=== PATIENT | male | born 1945 | race Caucasian/White ===

== ENCOUNTER 2017-06-10 05:40 | Inpatient (IN) | payer MEDICARE ==
[2017-06-10] MEDS ORDERED: CEFAZOLIN/Water 2 GM/20 ML SYRINGE ONE (06:21)
[2017-06-10 06:45] LABS: Hemoglobin 14.1 g/dL (14.0-18.0); Mean Corpuscular HGB CONC 33.3 g/dL (32.0-36.0); Mean Corpuscular Volume 99.1 fl (80.0-94.0); Mean Platelet Volume 6.9 fL (7.4-10.4); Platelet Count 368 thou/uL (130-400); RBC Distribution Width 12.1 % (11.5-14.5); Red Blood Cell (RBC) Count 4.28 mill/uL (4.70-6.10); White Blood Cell (WBC) Count 20.8 thou/uL (4.8-10.8)
[2017-06-10] MEDS ORDERED: Bupivacaine/Epinephrine 0.25% 30 ML VIAL ONE (06:47)
[2017-06-10 06:48] LABS: Anion Gap 14 mmol/L (10-20); BUN (Urea Nitrogen) 11 mg/dL (8.4-25.7); Calc. Creatinine Clearance 116 mL/min (70-130); Carbon Dioxide 20 mmol/L (23-31); Chloride 105 mmol/L (98-107); Estimated GFR-MDRD Greater than 90; Glucose 113 mg/dL (83-110); Potassium 4.2 mmol/L (3.5-5.1); Sodium 135 mmol/L (136-145)
[2017-06-10] MEDS ORDERED: Fentanyl 100 MCG/2 ML VIAL ONE (07:01)
[2017-06-10 07:15] LABS: Band 10 % (5-11); Burr Cells SLIGHT = 2-5 cells (100X) (0-1/hpf); Lymphocytes 18 % (21-51); MDiff Complete? YES; Monocytes 7 % (0-10); Neutrophil 65 % (42-75); Spherocytes SLIGHT = 1-5 cells (100X) (None Seen)
[2017-06-10 08:20] LABS: Bilirubin Negative (Negative); Blood, Urine Negative (Negative); Clarity CLEAR (Clear); Glucose, Urine (Dipstick) Negative (Negative); Leukocyte Negative (Negative); Nitrite Negative (Negative); Protein, Urine (Dipstick) Negative (Neg-Trace); Specific Gravity, Urine 1.024 (1.002-1.036); pH, Urine 6.5 (5.0-9.0)
[2017-06-10 08:22] LABS: Bacteria/HPF None Seen HPF (None Seen); Hyaline Casts/LPF 0-3 HYALINE CAST LPF (0-3 Hyaline); Pathc Cast-AUWi Flag 0.29 (0-2.49); Squamous Epithelial 0-3 HPF (0-3); WBC/HPF 0-3 HPF (0-3)
[2017-06-10 08:35] LABS: RBC/HPF 0-3 HPF (0-3)
--- NOTE | 2017-06-10 08:57 | RAD ---
RADIOGRAPH CHEST 1 VIEW: Date: 06-10-17 Time: 8:14 a.m. HISTORY: 72-year-old male for preoperative clearance. COMPARISON: 04-18-13 FINDINGS: There is a new finding of reticulonodular infiltrates throughout the right lower lung zone, encroachi ng upon the right midlung zone. There is another new finding of prominent interstitial markings throu ghout the right upper lobe. There is a small right upper lobe pulmonary nodule which is questionably new since the prior study. There are chronic changes consistent with extensive pulmonary scarring, th roughout the left lower lung zone. Mild blunting of the lateral costophrenic angles bilaterally. The left side is similar to the prior 2013 radiograph. No cardiomegaly. Left upper lobe is relatively yaima ar. IMPRESSION: 1. Prominent right lower lung zone infiltrate, new since the prior study of 04-18-13, suspicious for p neumonia. 2. Small right upper lobe pulmonary nodule. 3. Chronic changes involving the left lower lung zone. 4. Small pleural effusions versus pleural thickening bilaterally. 5. A CT may be useful. TONE POS: RACHANA
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
[2017-06-10] MEDS ORDERED: cefTRIAXone\\ROCEPHIN 1 GM in Sodium Chloride 0.9% 100 ML IVPB SCH (12:49)
[2017-06-10] MEDS ORDERED: Zolpidem Tartrate 5 MG TAB PO PRN (12:49)
[2017-06-10] MEDS: Azithromycin 500 MG in Sodium Chloride 0.9% 250 ML 250 ML IVPB SCH (14:07)
[2017-06-10] MEDS: cefTRIAXone\\ROCEPHIN 1 GM, Syringe 0.4 ML in Sterile Water 9.6 ML SLOW IVP SCH (14:09)
--- NOTE | 2017-06-10 15:47 | CT ---
CT CHEST WITH CONTRAST: HISTORY: Pneumonia. COMPARISON: Chest radiograph same day. FINDINGS: There are asymmetric ground-glass opacities in the right upper lobe with centrilobular emphysema. Th ere is also superimposed traction bronchiectasis of lower lobes with what appears to be some early ho neycombing. There are bands of soft tissue density throughout the right lung as well as some involvement in the l eft lung. There are multiple ill-defined linear opacities with a perilobular pattern. There is posterior medial diaphragmatic defect probably containing fat and some bowel. There are mil dly prominent right paratracheal lymph nodes, although do not have a round shape. The largest peritr acheal lymph node measures 1 cm. Healing right anterior and lateral 4th and 5th rib fractures. Old right lateral 6th rib fracture. O ld right lateral 7th rib fracture and 8th rib fracture. Old right posterior 9th rib fracture. There are left anterior healing 4th rib fracture. There is osseous bridging between left anterior 5th and 6th rib fractures. Also, there are left-sided healing rib fractures. No thoracic spine compression fracture. Small right pericardial effusion. Upper abdomen is unremarkable. IMPRESSION: 1. Extensive airspace opacities throughout the lungs involving the right lung some of which are band -like. Differential includes chronic eosinophilic pneumonia as well as cryptogenic organizing pneumo edward superimposed on what appears to be a possible UIP pattern with 3 of the 4 required imaging featur es with subpleural basal predominant reticular abnormality with traction bronchiectasis without defin ite honeycombing, although this could be early microcystic honeycombing. Multifocal pneumonia is als o a possibility, although at this point it is felt somewhat less likely. Bronchoscopic evaluation wo uld be helpful. 2. Mildly prominent mediastinal lymph nodes. 3. Numerous bilateral rib fractures in different phases of healing. POS: [facility]
[2017-06-10] MEDS ORDERED: Iopamidol 370 76% 100 ML VIAL ONE (16:27)
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
[2017-06-10] MEDS: Benzonatate 100 MG CAP PO PRN (21:56)
[2017-06-11] MEDS: Benzonatate 100 MG CAP PO PRN ×3 (06:39→13:49)
--- NOTE | 2017-06-11 08:25 | PDOC.PN ---
- Subjective Encounter Start Date: 06/11/17 Encounter Start Time: 08:23 Subjective: cough, MCCLELLAN - Objective Resuscitation Status: Resuscitation Status FULL:Full Resuscitation MAR Reviewed: Yes Vital Signs & Weight: Vital Signs (12 hours) Temp Pulse Resp BP Pulse Ox 06/11/17 03:09 99.8 F H 75 20 118/58 L 92 L Weight Weight 176 lb I&O: 06/10/17 06/11/17 06/12/17 06:59 06:59 06:59 Intake Total 1200 Output Total 700 Balance 500 Result Diagrams: 06/10/17 06:22 06/10/17 06:22 Radiology Reviewed by me: Yes (CT chest- air space abnormalities) Phys Exam - Physical Examination Neck: no JVD rales R post chest and LLL field Cardiovascular: RRR, no significant murmur Gastrointestinal: soft, non-tender, positive bowel sounds Musculoskeletal: no edema Dx/Plan (1) PNA (pneumonia) Code(s): J18.9 - PNEUMONIA, UNSPECIFIED ORGANISM Status: Acute Qualifiers: Pneumonia type: due to unspecified organism Laterality: bilateral (2) Atrial fibrillation Code(s): I48.91 - UNSPECIFIED ATRIAL FIBRILLATION Status: Chronic Qualifiers: Atrial fibrillation type: paroxysmal Qualified Code(s): I48.0 - Paroxysmal atrial fibrillation (3) Acute respiratory failure with hypoxemia Code(s): J96.01 - ACUTE RESPIRATORY FAILURE WITH HYPOXIA Status: Acute - Plan cont O2, antibx -: discuss with cardiology -: consult pulmonology -: hold amiodarone * .
--- NOTE | 2017-06-11 08:28 | EKG ---
Test Reason : PREOP Blood Pressure : / mmHG Vent. Rate : 077 BPM Atrial Rate : 077 BPM P-R Int : 182 ms QRS Dur : 172 ms QT Int : 506 ms P-R-T Axes : 067 152 006 degrees QTc Int : 572 ms Normal sinus rhythm Right bundle branch block Left posterior fascicular block Bifascicular block Cannot rule out Inferior infarct (cited on or before 18-APR-2013) Abnormal ECG When compared with ECG of 29-APR-2015 11:14, No significant change was found Confirmed by LANIE ROBBINS ([id number]) on 06/11/2017 8:28:01 AM Referred By: LIANA Confirmed By:LANIE ROBBINS
[2017-06-11] MEDS: Amlodipine 10 MG TAB PO SCH (09:34)
[2017-06-11] MEDS: Atorvastatin Calcium 40 MG TAB PO SCH (09:34)
[2017-06-11] MEDS: Aspirin 81 mg Enteric Coated Tablet PO SCH (09:35)
[2017-06-11] MEDS: Lisinopril 10 MG TAB PO SCH (09:35)
[2017-06-11] MEDS: Enoxaparin Sodium 40 MG/0.4 ML SYRINGE SC SCH (09:36)
[2017-06-11] MEDS: Sodium Chloride 0.9% 10 ML ONE ×2 (09:36→18:53)
[2017-06-11] MEDS ORDERED: Sodium Chloride 0.9% 10 ML ONE (12:41)
[2017-06-11] MEDS: Azithromycin 500 MG in Sodium Chloride 0.9% 250 ML 250 ML IVPB SCH (12:49)
[2017-06-11] MEDS: cefTRIAXone\\ROCEPHIN 1 GM, Syringe 0.4 ML in Sterile Water 9.6 ML SLOW IVP SCH (12:52)
--- NOTE | 2017-06-11 16:11 | PDOC.CTH ---
Cardiology Progress Note - Subjective No new issues. He states he feels slightly better than yesterday. - Objective Vital Signs Temp Pulse Resp BP BP BP Pulse Ox 06/11/17 12:00 98.2 F 85 16 133/60 92 L 06/11/17 09:35 139/68 06/11/17 09:34 82 139/68 06/11/17 08:00 99.3 F 82 16 139/68 92 L Admit Weight 190 lb Weight 176 lb 06/10/17 06/11/17 06/12/17 06:59 06:59 06:59 Intake Total 1200 Output Total 700 Balance 500 - Physical Examination General/Neuro: alert & oriented x3, NAD Neck: no JVD present Lungs: other: (Crackles) Heart: RRR Abdomen: NT/ND Extremities: + edema B (1+) - Telemetry Telemetry Rhythm: NSR - Labs Result Diagrams: 06/10/17 06:22 06/10/17 06:22 - Assessment/Plan 1. Lung infiltrates, possibly amio lung versus atypical pneumonia, awaiting pulmonary recs. 2. Acute hypoxic respiratory insufficiency. Improving. 3. Paroxysmal afib, currently in sinus. PLAN: - Continue to hold amiodarone indefinitely. - IV diuresis. - IV abx per primary team.
[2017-06-11] MEDS: Benzonatate 100 MG CAP PO SCH (20:57)
[2017-06-11] MEDS: Temazepam 15 MG CAP PO PRN (20:57)
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
[2017-06-12] MEDS: Benzonatate 100 MG CAP PO SCH ×3 (08:06→20:32)
[2017-06-12] MEDS: Atorvastatin Calcium 40 MG TAB PO SCH (08:06)
[2017-06-12] MEDS: Aspirin 81 mg Enteric Coated Tablet PO SCH (08:07)
[2017-06-12] MEDS: Amlodipine 10 MG TAB PO SCH (08:07)
[2017-06-12] MEDS: Enoxaparin Sodium 40 MG/0.4 ML SYRINGE SC SCH (08:07)
[2017-06-12] MEDS: Lisinopril 10 MG TAB PO SCH (08:07)
--- NOTE | 2017-06-12 10:42 | PDOC.PN ---
- Subjective Encounter Start Date: 06/12/17 Encounter Start Time: 10:40 Patient seen and examined, no new issues or complaints, all questions answered. - Objective Resuscitation Status: Resuscitation Status FULL:Full Resuscitation Vital Signs & Weight: Vital Signs (12 hours) Temp Pulse Resp BP Pulse Ox 06/12/17 08:00 97.5 F L 81 18 06/12/17 07:39 97.5 F L 81 18 127/58 L 92 L 06/12/17 06:48 78 20 06/12/17 04:00 97.6 F 70 18 114/58 L 93 L 06/12/17 02:42 65 16 97 06/11/17 23:13 97.8 F 79 20 127/63 89 L 06/11/17 23:10 82 22 H 89 L Weight Admit Weight 190 lb Weight 174 lb I&O: 06/11/17 06/12/17 06/13/17 06:59 06:59 06:59 Intake Total 1200 1130 Output Total 700 550 Balance 500 580 Result Diagrams: 06/10/17 06:22 06/10/17 06:22 Phys Exam - Physical Examination Constitutional: NAD HEENT: PERRLA, moist MMs, sclera anicteric Neck: no nodes, no JVD, supple right sided inspiratory coarse breath sounds no respiratory distress Cardiovascular: RRR, no significant murmur, no rub Gastrointestinal: soft, non-tender, no distention Musculoskeletal: no edema, pulses present Dx/Plan (1) Acute respiratory failure with hypoxemia Code(s): J96.01 - ACUTE RESPIRATORY FAILURE WITH HYPOXIA Status: Acute (2) PNA (pneumonia) Code(s): J18.9 - PNEUMONIA, UNSPECIFIED ORGANISM Status: Acute Qualifiers: Pneumonia type: due to unspecified organism Laterality: bilateral (3) Atrial fibrillation Code(s): I48.91 - UNSPECIFIED ATRIAL FIBRILLATION Status: Chronic Qualifiers: Atrial fibrillation type: paroxysmal Qualified Code(s): I48.0 - Paroxysmal atrial fibrillation (4) Lumbar stenosis Code(s): M48.06 - SPINAL STENOSIS, LUMBAR REGION * DO NOT USE * Status: Acute (5) S/P laminectomy Code(s): Z98.89 - OTHER SPECIFIED POSTPROCEDURAL STATES * DO NOT USE * Status : Acute - Plan * Continue current plan * labs and CXR in AM * amiodarone on hold for now * pulmonary and cardiology following * cont abx * plan d/w patient, he understands and agrees with this plan
[2017-06-12] MEDS: Azithromycin 500 MG in Sodium Chloride 0.9% 250 ML 250 ML IVPB SCH (13:30)
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
[2017-06-12] MEDS: cefTRIAXone\\ROCEPHIN 1 GM, Syringe 0.4 ML in Sterile Water 9.6 ML SLOW IVP SCH (14:44)
[2017-06-12] MEDS: Guaifenesin DM 100-10/5 ML UDCUP PO PRN ×2 (15:50→20:52)
--- NOTE | 2017-06-12 16:09 | PDOC.CTH ---
Cardiology Progress Note - Subjective Mild improvement in symptoms today. - Objective Vital Signs Temp Pulse Resp BP BP Pulse Ox 06/12/17 15:46 97.7 F 80 17 112/58 L 95 06/12/17 15:43 76 16 06/12/17 11:32 97.5 F L 84 18 111/54 L 93 L 06/12/17 11:16 81 20 06/12/17 08:00 97.5 F L 81 18 06/12/17 07:39 97.5 F L 81 18 127/58 L 92 L 06/12/17 06:48 78 20 Admit Weight 190 lb Weight 174 lb 06/11/17 06/12/17 06/13/17 06:59 06:59 06:59 Intake Total 1200 1130 Output Total 700 550 Balance 500 580 - Physical Examination General/Neuro: alert & oriented x3, NAD Neck: no JVD present Lungs: unlabored respirations, other: (crackles bilat. ) Heart: RRR Abdomen: NT/ND Extremities: + edema B (trace) - Telemetry Telemetry Rhythm: NSR - Labs Result Diagrams: 06/10/17 06:22 06/10/17 06:22 - Assessment/Plan 1. Possibly amio lung versus atypical pneumonia. 2. Acute hypoxic respiratory insufficiency. 3. Paroxysmal afib, currently in sinus. 4. Ischemic CM. 5. PLAN: - Continue to hold amiodarone indefinitely and started on steroids treating possible amiodarone lung. - IV abx per primary team. - Dr. Franco will follow in the morning.
[2017-06-12] MEDS: Temazepam 15 MG CAP PO PRN (20:33)
[2017-06-13] MEDS: Acetaminophen 325 MG TAB PO PRN ×2 (03:33→20:01)
[2017-06-13 05:48] LABS: Anion Gap 16 mmol/L (10-20); BUN (Urea Nitrogen) 18 mg/dL (8.4-25.7); Calc. Creatinine Clearance 115 mL/min (70-130); Calcium 8.7 mg/dL (7.8-10.44); Carbon Dioxide 18 mmol/L (23-31); Chloride 104 mmol/L (98-107); Estimated GFR-MDRD Greater than 90; Glucose 132 mg/dL (83-110); Potassium 3.5 mmol/L (3.5-5.1); Sodium 134 mmol/L (136-145)
[2017-06-13] MEDS: Guaifenesin DM 100-10/5 ML UDCUP PO PRN ×3 (05:57→20:00)
[2017-06-13 06:12] LABS: Band 12 % (5-11); Hemoglobin 12.9 g/dL (14.0-18.0); Lymphocytes 1 % (21-51); MDiff Complete? YES; Mean Corpuscular HGB CONC 31.4 g/dL (32.0-36.0); Mean Corpuscular Hemoglobin 32.2 pg (27.0-31.0); Mean Platelet Volume 7.8 fL (7.4-10.4); Monocytes 3 % (0-10); Neutrophil 84 % (42-75); Platelet Count 345 thou/uL (130-400); Red Blood Cell (RBC) Count 4.02 mill/uL (4.70-6.10); White Blood Cell (WBC) Count 25.2 thou/uL (4.8-10.8)
[2017-06-13] MEDS ORDERED: Loratadine 10 MG TAB PO PRN (07:22)
[2017-06-13] MEDS ORDERED: Mag-Al 1200 mg/1200 mg/30 ML UDCUP PO PRN (07:22)
[2017-06-13] MEDS ORDERED: Chloraseptic Spray 180 ml Bottle PO PRN (07:22)
[2017-06-13] MEDS ORDERED: Artificial Tears 18 DROP/0.9 ML EA EYE PRN (07:22)
[2017-06-13] MEDS ORDERED: Senokot 8.6 MG TAB PO PRN (07:22)
[2017-06-13] MEDS ORDERED: Sodium Chloride 0.65% Nasal 44 ML BOT EA NARE PRN (07:22)
[2017-06-13] MEDS ORDERED: Eucerin (Mineral Oil/Petrolatum,White) 30 gm Jar TOP PRN (07:22)
[2017-06-13] MEDS ORDERED: Ondansetron HCl/PF 4 MG/2 ML Vial IVP PRN (07:22)
[2017-06-13] MEDS ORDERED: hydrALAZINE 20 MG/ML VIAL SLOW IVP PRN (07:22)
[2017-06-13 08:01] LABS: ALT (SGPT) 17 U/L (8-55); AST (SGOT) 32 U/L (5-34); Albumin 2.9 g/dL (3.4-4.8); Alkaline Phosphatase 96 U/L (40-150); Bilirubin, Direct 0.2 mg/dL (0.1-0.3); Bilirubin, Total 0.5 mg/dL (0.2-1.2); Protein, Total 6.1 g/dL (5.8-8.1)
[2017-06-13] MEDS: Benzonatate 100 MG CAP PO SCH ×3 (08:06→20:00)
[2017-06-13] MEDS: Lisinopril 10 MG TAB PO SCH (08:07)
[2017-06-13] MEDS: Amlodipine 10 MG TAB PO SCH (08:07)
[2017-06-13] MEDS: Aspirin 81 mg Enteric Coated Tablet PO SCH (08:07)
[2017-06-13] MEDS: Atorvastatin Calcium 40 MG TAB PO SCH (08:07)
[2017-06-13] MEDS: Famotidine 20 MG TAB PO SCH ×2 (08:07→21:17)
[2017-06-13] MEDS: Enoxaparin Sodium 40 MG/0.4 ML SYRINGE SC SCH (08:08)
[2017-06-13] MEDS: Milk Of Magnesia 30 ML UDCUP PO PRN (08:12)
--- NOTE | 2017-06-13 08:56 | PDOC.PN ---
- Subjective Encounter Start Date: 06/13/17 Encounter Start Time: 07:45 -: old records requested/rev Patient seen and examined. today pt was hypoxic, so non rebreather started, no fever, No overnight events - Objective Resuscitation Status: Resuscitation Status FULL:Full Resuscitation MAR Reviewed: Yes Vital Signs & Weight: Vital Signs (12 hours) Temp Pulse Resp BP Pulse Ox 06/13/17 08:07 82 06/13/17 07:01 85 L 06/13/17 06:53 82 16 85 L 06/13/17 04:00 97.3 F L 75 24 H 106/58 L 06/12/17 22:29 77 14 92 L Weight Admit Weight 190 lb Weight 172 lb I&O: 06/12/17 06/13/17 06/14/17 06:59 06:59 06:59 Intake Total 1130 1500 Output Total 550 425 Balance 580 1075 Result Diagrams: 06/13/17 04:09 06/13/17 04:09 Radiology Reviewed by me: Yes (chest xray) EKG Reviewed by me: Yes (NSR) Phys Exam - Physical Examination Constitutional: NAD HEENT: PERRLA, moist MMs, sclera anicteric Neck: no JVD, supple bilateral coarse breath sound Cardiovascular: RRR, no significant murmur, no rub Gastrointestinal: soft, non-tender, no distention, positive bowel sounds Musculoskeletal: no edema, pulses present Neurological: non-focal, normal sensation, moves all 4 limbs Lymphatic: no nodes Psychiatric: normal affect, A&O x 3 Skin: no rash, normal turgor Dx/Plan (1) Acute respiratory failure with hypoxemia Code(s): J96.01 - ACUTE RESPIRATORY FAILURE WITH HYPOXIA Status: Acute (2) Atypical pneumonia Code(s): J18.9 - PNEUMONIA, UNSPECIFIED ORGANISM Status: Acute (3) CAD (coronary artery disease) Code(s): I25.10 - ATHSCL HEART DISEASE OF [place] CORONARY ARTERY W/O ANG PCTRS Status: Chronic (4) Dyslipidemia Code(s): E78.5 - HYPERLIPIDEMIA, UNSPECIFIED Status: Chronic (5) Hypertension Code(s): I10 - ESSENTIAL (PRIMARY) HYPERTENSION Status: Chronic (6) Ischemic cardiomyopathy Code(s): I25.5 - ISCHEMIC CARDIOMYOPATHY Status: Chronic (7) Macrocytic anemia Code(s): D53.9 - NUTRITIONAL ANEMIA, UNSPECIFIED Status: Chronic (8) Paroxysmal atrial fibrillation Code(s): I48.0 - PAROXYSMAL ATRIAL FIBRILLATION Status: Chronic (9) Amiodarone pulmonary toxicity Code(s): J98.4 - OTHER DISORDERS OF LUNG; T46.2X5A - ADVERSE EFFECT OF OTHER ANTIDYSRHYTHMIC DRUGS, INIT ENCNTR Status: Suspected - Plan cont current plan of care, continue antibiotics, respiratory therapy * continue empiric rocephin and azithromycin * LFT and BNP checked * will get Echo today * if oxygen saturation remains low despite non rebreather, then will consider transfer to [facility] and he may need BIPAP * medication reviewed as below * symptomatic treatment. Review of Systems - Review of Systems Constitutional: negative: fever, chills, sweats, weakness, malaise, other Eyes: negative: Pain, Vision Change, Conjunctivae Inflammation, Eyelid Inflammation, Redness, Other ENT: negative: Ear Pain, Ear Discharge, Nose Pain, Nose Discharge, Nose Congestion, Mouth Pain, Mouth Swelling, Throat Pain, Throat Swelling, Other Respiratory: Shortness of Breath, SOB with Excertion. negative: Cough, Dry, Hemoptysis, Pleuritic Pain, Sputum, Wheezing Cardiovascular: negative: chest pain, palpitations, orthopnea, paroxysmal nocturnal dyspnea, edema, light headedness, other Gastrointestinal: negative: Nausea, Vomiting, Abdominal Pain, Diarrhea, Constipation, Melena, Hematochezia, Other Genitourinary: negative: Dysuria, Frequency, Incontinence, Hematuria, Retention , Other Musculoskeletal: negative: Neck Pain, Shoulder Pain, Arm Pain, Back Pain, Hand Pain, Leg Pain, Foot Pain, Other Skin: negative: Rash, Lesions, [place], Bruising, Other Neurological: negative: Weakness, Numbness, Incoordination, Change in Speech, Confusion, Seizures, Other - Medications/Allergies Allergies/Adverse Reactions: Allergies Allergy/AdvReac Type Severity Reaction Status Date / Time No Known Allergies Allergy Verified 06/10/17 12:55 Medications: Current Medications Acetaminophen (Tylenol) 650 mg PO Q4H PRN PRN Reason: Headache/Fever or Pain Last Admin: 06/13/17 03:33 Dose: 650 mg Al Hydroxide/Mg Hydroxide (Maalox) 15 ml PO Q4H PRN PRN Reason: Heartburn or Indigestion Albuterol/Ipratropium (Duoneb) 3 ml NEB [id number] [facility] Last Admin: 06/13/17 06:53 Dose: 3 ml Amlodipine Besylate (Norvasc) [facility] [place] Last Admin: 06/13/17 08:07 Dose: 10 mg Artificial Tears (Tears Naturale) 0 drop EA EYE PRN PRN PRN Reason: Dry Eyes Aspirin (Ecotrin) 81 mg PO [facility] [place] Last Admin: 06/13/17 08:07 Dose: 81 mg Atorvastatin Calcium (Lipitor) 40 mg PO [facility] [place] Last Admin: 06/13/17 08:07 Dose: 40 mg Benzonatate (Tessalon) 200 mg PO TID [facility] Last Admin: 06/13/17 08:06 Dose: 200 mg Enoxaparin Sodium (Lovenox) 40 mg SC 0900 [facility] Last Admin: 06/13/17 08:08 Dose: 40 mg Famotidine (Pepcid) 20 mg PO BID [facility] Last Admin: 06/13/17 08:07 Dose: 20 mg Guaifenesin/Dextromethorphan (Robitussin Dm) 15 ml PO Q6H PRN PRN Reason: Cough Last Admin: 06/13/17 05:57 Dose: 15 ml Hydralazine HCl (Apresoline) 10 mg SLOW IVP Q4H PRN PRN Reason: Systolic BP > 180 Azithromycin 500 mg/ Sodium (Chloride) 250 mls @ 250 mls/hr IVPB Q24HR [facility] Last Admin: 06/12/17 13:30 Dose: 250 mls Ceftriaxone Sodium 1 gm/ (Syringe 0.4 ml/ Sterile Water) 10 mls @ 120 mls/hr SLOW IVP 1300 [facility] Last Admin: 06/12/17 14:44 Dose: 10 mls Lisinopril (Zestril) 10 mg [facility] [place] Last Admin: 06/13/17 08:07 Dose: 10 mg Loratadine (Claritin) 10 mg PO DAILYPRN PRN PRN Reason: Sinus Symptoms Magnesium Hydroxide (Milk Of Magnesium) 30 ml PO DAILYPRN PRN PRN Reason: Constipation Last Admin: 06/13/17 08:12 Dose: 30 ml Methylprednisolone Sodium Succinate (Solu-Medrol) 40 mg IVP Q6HR [facility] Last Admin: 06/13/17 05:57 Dose: 40 mg Mineral Oil/White Petrolatum (Eucerin Cream) 0 gm TOP BIDPRN PRN PRN Reason: Dry Skin Ondansetron HCl (Zofran) 4 mg IVP Q6H PRN PRN Reason: Nausea/Vomiting Phenol (Chloraseptic [place] 180 Ml Bot) 0 ml PO PRN PRN PRN Reason: Sore Throat Senna (Senokot) 2 tab PO HSPRN PRN PRN Reason: Constipation Sodium Chloride ([place] Nasal [place] 0.65%) 0 ml EA NARE QIDPRN PRN PRN Reason: Nasal Congestion Temazepam (Restoril) 30 mg PO HSPRN PRN PRN Reason: Insomnia Last Admin: 06/12/17 20:33 Dose: 30 mg
--- NOTE | 2017-06-13 09:26 | RAD ---
PORTABLE CHEST: HISTORY: Cough. COMPARISON: 06/10/17 study. FINDINGS: Heart size appears slightly enlarged. The parenchymal lung markings appear slightly worsened as comp ared to the previous examination. There is relative sparing of the left upper lobe changes. IMPRESSION: Parenchymal lung changes which are not improved and may be slightly worsened as compared to the previ ous study. POS: KINA
[2017-06-13] MEDS ORDERED: Furosemide 100 MG/10 ML VIAL SLOW IVP SCH (12:15)
--- NOTE | 2017-06-13 12:24 | PRG ---
DATE OF SERVICE: 06/13/2017 SUBJECTIVE: He says he feels better, but he is a little more hypoxemic today. He had a face mask on earlier, because his sats were in the high 80s when he woke up. OBJECTIVE: VITAL SIGNS: He is afebrile, heart rate is 80, respiratory rate is 20, oximetry is 89% on 50% mask. Blood pressure 124/60. GENERAL: He is in no distress. LUNGS: He is not using accessory muscles. He had crackles at both lung bases. HEART: Regular rhythm. S1 and S2 are normal. ABDOMEN: Soft and nontender. EXTREMITIES: Without clubbing, cyanosis, or edema. IMAGING: Chest radiograph shows an increase in interstitial markings, perhaps a little worse. Intake and output is positive 1075. IMPRESSION: 1. ?amiodarone hypersensitivity. 2. Possible atypical pneumonia. 3. History of atrial fibrillation in sinus rhythm. 4. History of an ischemic cardiomyopathy. Given his positive fluid balance for several days, he will receive Lasix. Hopefully, we will see an improvement in his gas exchange.
--- NOTE | 2017-06-13 18:47 | PDOC.CTH ---
Cardiology Progress Note - Subjective The pt seen and examined. No overnight events. No cardiac complaints. He continues to cough. - Objective Vital Signs Temp Pulse Resp BP Pulse Ox 06/13/17 16:03 97.8 F 81 16 121/58 L 93 L 06/13/17 14:33 77 20 92 L 06/13/17 13:27 94 L 06/13/17 11:36 97.5 F L 82 16 104/53 L 79 L 06/13/17 11:09 93 16 89 L 06/13/17 08:45 97.8 F 80 20 06/13/17 08:25 97.8 F 80 20 124/60 93 L 06/13/17 08:07 82 06/13/17 07:01 85 L 06/13/17 06:53 82 16 85 L Admit Weight 190 lb Weight 172 lb 06/12/17 06/13/17 06/14/17 06:59 06:59 06:59 Intake Total 1130 1500 800 Output Total 550 425 900 Balance 580 1075 -100 - Physical Examination General/Neuro: alert & oriented x3 Neck: no JVD present Lungs: other: (coases and diminished at bases) Heart: RRR Abdomen: soft Extremities: other: (No edema) - Telemetry Telemetry Rhythm: SR, 1st avb, RBBB 70-80s - Labs Result Diagrams: 06/13/17 04:09 06/13/17 04:09 - Assessment/Plan 1. Acute hypoxic respiratory insufficiency possible due to Amiodarone lung vs atypical pneumonia - Cont. holding Amiodarone. IV antibiotics by PCP. 2. Paroxysmal afib - Remains in SR; 3. CAD - stable; cont. to monitor on tele; on HECTOR, ASA, Lovenox, Statin; no on BBlocker due to SOB 4. HTN - stable with current meds 5. Hyperlipidemia - MAR reviewed Review of Systems - Review of Systems Constitutional: reports: weakness EENTM: reports: no symptoms reported Respiratory: reports: see HPI Cardiac (ROS): reports: no symptoms reported ABD/GI: reports: no symptoms reported : reports: no symptoms reported
[2017-06-13] MEDS: Temazepam 15 MG CAP PO PRN (20:02)
--- NOTE | 2017-06-14 09:06 | PDOC.CTH ---
<Yun Mckinnon - Last Filed: 06/14/17 09:03> Cardiology Progress Note - Subjective The pt seen and examined. No overnight events. No cardiac complaints. He still complains of [place] with minimal movement and chronic cough. - Objective Vital Signs Temp Pulse Resp BP Pulse Ox 06/14/17 08:04 97.4 F L 85 20 114/56 L 90 L 06/14/17 07:24 88 L 06/14/17 07:19 81 20 88 L 06/14/17 04:00 98.1 F 75 20 104/57 L 06/13/17 22:45 80 20 91 L Admit Weight 190 lb Weight 175 lb 06/13/17 06/14/17 06/15/17 06:59 06:59 06:59 Intake Total 1500 800 Output Total 425 900 Balance 1075 -100 - Physical Examination General/Neuro: alert & oriented x3 Neck: no JVD present Lungs: other: (coases, but better than yesterday) Heart: RRR Abdomen: soft Extremities: other: (no edema) - Telemetry Telemetry Rhythm: SR with RBBB 70-80s - Labs Result Diagrams: 06/13/17 04:09 06/13/17 04:09 - Assessment/Plan 1. Acute hypoxic respiratory insufficiency possible due to Amiodarone lung vs atypical pneumonia - Cont. holding Amiodarone. IV antibiotics by PCP. 2. Paroxysmal afib - Remains in SR since 06/10/17 according to tele record; on ASA and Lovenox qd 3. CAD - stable; cont. to monitor on tele; on HECTOR, ASA, Lovenox, Statin; no on BBlocker due to SOB 4. HTN - stable with current meds 5. Hyperlipidemia - on Statin MAR reviewed Review of Systems - Review of Systems Constitutional: reports: no symptoms reported, weakness EENTM: reports: see HPI Respiratory: reports: see HPI Cardiac (ROS): reports: no symptoms reported ABD/GI: reports: no symptoms reported : reports: no symptoms reported <Annamaria Franco - Last Filed: 06/14/17 18:26> Cardiology Progress Note - Objective Vital Signs Temp Pulse Resp BP BP Pulse Ox 06/14/17 18:22 82 20 91 L 06/14/17 17:27 97.8 F 83 20 117/65 90 L 06/14/17 15:00 97.6 F 86 20 92 L 06/14/17 14:14 97.6 F 86 20 119/66 92 L 06/14/17 13:57 82 22 H 91 L 06/14/17 11:40 97.4 F L 82 18 123/57 L 93 L 06/14/17 11:08 81 20 06/14/17 08:06 97.4 F L 85 20 90 L 06/14/17 08:04 97.4 F L 85 20 114/56 L 90 L 06/14/17 07:24 88 L 06/14/17 07:19 81 20 88 L Admit Weight 190 lb Weight 175 lb 06/13/17 06/14/17 06/15/17 06:59 06:59 06:59 Intake Total 1500 800 260 Output Total 425 900 100 Balance 1075 -100 160 - Labs Result Diagrams: 06/13/17 04:09 06/13/17 04:09 - Assessment/Plan Pt. seen and eval. by me. I agree with the A/P by the TRACER BULLET SECTION SUPERVISOR. Bilat. marylu chaudhary. RRR. Will discuss with EP about the best options for antiarrhythmic medications.
[2017-06-14] MEDS: Aspirin 81 mg Enteric Coated Tablet PO SCH (09:12)
[2017-06-14] MEDS: Benzonatate 100 MG CAP PO SCH ×3 (09:12→20:09)
[2017-06-14] MEDS: Atorvastatin Calcium 40 MG TAB PO SCH (09:12)
[2017-06-14] MEDS: Amlodipine 10 MG TAB PO SCH (09:12)
[2017-06-14] MEDS: Milk Of Magnesia 30 ML UDCUP PO PRN (09:13)
[2017-06-14] MEDS: Enoxaparin Sodium 40 MG/0.4 ML SYRINGE SC SCH (09:13)
[2017-06-14] MEDS: Lisinopril 10 MG TAB PO SCH (09:13)
[2017-06-14] MEDS: Guaifenesin DM 100-10/5 ML UDCUP PO PRN (09:13)
[2017-06-14] MEDS: Famotidine 20 MG TAB PO SCH ×2 (10:06→20:09)
--- NOTE | 2017-06-14 14:43 | PDOC.PN ---
- Subjective Encounter Start Date: 06/14/17 Encounter Start Time: 14:49 Subjective: No new complaints -: De-escalated from non-rebreather to NC O2 overnight. - Objective Resuscitation Status: Resuscitation Status FULL:Full Resuscitation MAR Reviewed: Yes Vital Signs & Weight: Vital Signs (12 hours) Temp Pulse Resp BP BP Pulse Ox 06/14/17 14:14 97.6 F 86 20 119/66 92 L 06/14/17 13:57 82 22 H 91 L 06/14/17 11:40 97.4 F L 82 18 123/57 L 93 L 06/14/17 11:08 81 20 06/14/17 08:06 97.4 F L 85 20 90 L 06/14/17 08:04 97.4 F L 85 20 114/56 L 90 L 06/14/17 07:24 88 L 06/14/17 07:19 81 20 88 L 06/14/17 04:00 98.1 F 75 20 104/57 L Weight Admit Weight 190 lb Weight 175 lb I&O: 06/13/17 06/14/17 06/15/17 06:59 06:59 06:59 Intake Total 1500 800 Output Total 425 900 Balance 1075 -100 Result Diagrams: 06/13/17 04:09 06/13/17 04:09 Additional Labs: Accuchecks 06/14/17 10:40 POC Glucose 127 H Phys Exam - Physical Examination Constitutional: NAD HEENT: PERRLA, moist MMs, sclera anicteric Neck: no JVD, supple, full ROM Respiratory: no wheezing, no rales, no rhonchi, clear to auscultation bilateral reduced breath sounds bilaterally Cardiovascular: RRR (s1 s2 only), no significant murmur, no rub Gastrointestinal: soft, non-tender, no distention, positive bowel sounds Musculoskeletal: no edema, pulses present Neurological: non-focal, moves all 4 limbs Psychiatric: normal affect, A&O x 3 Skin: no rash, normal turgor Dx/Plan (1) Acute respiratory failure with hypoxemia Code(s): J96.01 - ACUTE RESPIRATORY FAILURE WITH HYPOXIA Status: Acute (2) Amiodarone pulmonary toxicity Code(s): J98.4 - OTHER DISORDERS OF LUNG; T46.2X5A - ADVERSE EFFECT OF OTHER ANTIDYSRHYTHMIC DRUGS, INIT ENCNTR Status: Suspected (3) Atypical pneumonia Code(s): J18.9 - PNEUMONIA, UNSPECIFIED ORGANISM Status: Acute Comment: Continue Levofloxacin. (4) CAD (coronary artery disease) Code(s): I25.10 - ATHSCL HEART DISEASE OF [place] CORONARY ARTERY W/O ANG PCTRS Status: Chronic Qualifiers: Coronary Disease-Associated Artery/Lesion type: unspecified vessel or lesion type [place] vs. transplanted heart: [place] heart Associated angina: without angina Qualified Code(s): I25.10 - Atherosclerotic heart disease of [place] coronary artery without angina pectoris Comment: Stable, chest pain free. (5) Dyslipidemia Code(s): E78.5 - HYPERLIPIDEMIA, UNSPECIFIED Status: Chronic (6) Hypertension Code(s): I10 - ESSENTIAL (PRIMARY) HYPERTENSION Status: Chronic (7) Ischemic cardiomyopathy Code(s): I25.5 - ISCHEMIC CARDIOMYOPATHY Status: Chronic (8) Macrocytic anemia Code(s): D53.9 - NUTRITIONAL ANEMIA, UNSPECIFIED Status: Chronic (9) Paroxysmal atrial fibrillation Code(s): I48.0 - PAROXYSMAL ATRIAL FIBRILLATION Status: Chronic - Plan cont current plan of care, continue antibiotics, respiratory therapy, out of bed /ambulate, DVT proph w/lovenox Continue O2 supplementation. -: Continue Levofloxacin -: f/u cardiology and pulmonary recs. * . Review of Systems - Medications/Allergies Allergies/Adverse Reactions: Allergies Allergy/AdvReac Type Severity Reaction Status Date / Time No Known Allergies Allergy Verified 06/10/17 12:55 Medications: Current Medications Acetaminophen (Tylenol) 650 mg PO Q4H PRN PRN Reason: Headache/Fever or Pain Last Admin: 06/13/17 20:01 Dose: 650 mg Al Hydroxide/Mg Hydroxide (Maalox) 15 ml PO Q4H PRN PRN Reason: Heartburn or Indigestion Albuterol/Ipratropium (Duoneb) 3 ml EZPAP [id number] [facility] Last Admin: 06/14/17 13:57 Dose: 3 ml Amlodipine [facility] ([facility]) [facility] Last Admin: 06/14/17 09:12 Dose: 10 mg Artificial Tears (Tears Naturale) 0 drop EA EYE PRN PRN PRN Reason: Dry Eyes Aspirin (Ecotrin) [facility] Last Admin: 06/14/17 09:12 Dose: 81 mg Atorvastatin Calcium (Lipitor) 40 mg PO QAM [facility] Last Admin: 06/14/17 09:12 Dose: 40 mg Benzonatate (Tessalon) 200 mg PO TID [facility] Last Admin: 06/14/17 09:12 Dose: 200 mg Enoxaparin Sodium (Lovenox) 40 mg SC 0900 [facility] Last Admin: 06/14/17 09:13 Dose: 40 mg Famotidine (Pepcid) 20 mg PO BID [facility] Last Admin: 06/14/17 10:06 Dose: 20 mg Guaifenesin/Dextromethorphan (Robitussin Dm) 15 ml PO Q6H PRN PRN Reason: Cough Last Admin: 06/14/17 09:13 Dose: 15 ml Hydralazine HCl (Apresoline) 10 mg SLOW IVP Q4H PRN PRN Reason: Systolic BP > 180 Levofloxacin (Levaquin) 500 mg PO 0600 [facility] Last Admin: 06/14/17 05:38 Dose: 500 mg Lisinopril (Zestril) 10 mg PO QAM [facility] Last Admin: 06/14/17 09:13 Dose: 10 mg Loratadine (Claritin) 10 mg PO DAILYPRN PRN PRN Reason: Sinus Symptoms Last Admin: 06/13/17 20:05 Dose: 10 mg Magnesium Hydroxide (Milk Of Magnesium) 30 ml PO DAILYPRN PRN PRN Reason: Constipation Last Admin: 06/14/17 09:13 Dose: 30 ml Methylprednisolone Sodium Succinate (Solu-Medrol) 40 mg IVP Q6HR [facility] Last Admin: 06/14/17 11:43 Dose: 40 mg Mineral Oil/White Petrolatum (Eucerin Cream) 0 gm TOP BIDPRN PRN PRN Reason: Dry Skin Ondansetron HCl (Zofran) 4 mg IVP Q6H PRN PRN Reason: Nausea/Vomiting Phenol (Chloraseptic [place] 180 Ml Bot) 0 ml PO PRN PRN PRN Reason: Sore Throat Senna (Senokot) 2 tab PO HSPRN PRN PRN Reason: Constipation Sodium Chloride ([place] Nasal [place] 0.65%) 0 ml EA NARE QIDPRN PRN PRN Reason: Nasal Congestion Temazepam (Restoril) 30 mg PO HSPRN PRN PRN Reason: Insomnia Last Admin: 06/13/17 20:02 Dose: 30 mg
[2017-06-14] MEDS ORDERED: Albuterol Sulfate 2.5 mg/3 ml Neb NEB PRN (14:50)
--- NOTE | 2017-06-14 16:47 | PRG ---
DATE OF SERVICE: 06/14/2017 SUBJECTIVE: Bonita is improved. He is back to a 4 liter cannula. He is negative 1075 yesterday. He took in 1200 mL by mouth. He may need to be fluid restricted for now. Otherwise no changes. There is no lab today. IMPRESSION: 1. Amiodarone hypersensitivity. 2. ?Coexistent atypical pneumonia. 3. Hypoxemia in part secondary to volume overload. 4. Atrial fibrillation in sinus rhythm. 5. History of an ischemic cardiomyopathy. 6. History of hypertension. 7. Lipid disorder. PLAN: Continue current care. He is stable to move off telemetry.
[2017-06-14] MEDS: Acetaminophen 325 MG TAB PO PRN (17:19)
[2017-06-14] MEDS: Temazepam 15 MG CAP PO PRN (22:22)
[2017-06-15 04:57] LABS: #Lymphocytes 0.6 thou/uL (1.20-3.40); #Monocytes 1.3 thou/uL (0.11-0.59); #Neutrophils 10.4 thou/uL (1.40-6.50); %Eosinophils 0.2 % (0.0-10.0); %Lymphocytes 5.2 % (21.0-51.0); %Monocytes 10.3 % (0.0-10.0); %Neutrophils 84.3 % (42.0-75.0); Hemoglobin 12.8 g/dL (14.0-18.0); Mean Corpuscular HGB CONC 32.4 g/dL (32.0-36.0); Mean Corpuscular Volume 98.7 fl (80.0-94.0); Mean Platelet Volume 7.2 fL (7.4-10.4); Platelet Count 385 thou/uL (130-400); RBC Distribution Width 11.9 % (11.5-14.5); White Blood Cell (WBC) Count 12.3 thou/uL (4.8-10.8)
[2017-06-15 05:08] LABS: Anion Gap 10 mmol/L (10-20); BUN (Urea Nitrogen) 25 mg/dL (8.4-25.7); Calc. Creatinine Clearance 110 mL/min (70-130); Calcium 8.2 mg/dL (7.8-10.44); Carbon Dioxide 27 mmol/L (23-31); Chloride 105 mmol/L (98-107); Estimated GFR-MDRD Greater than 90; Glucose 123 mg/dL (83-110); Sodium 138 mmol/L (136-145)
[2017-06-15] MEDS: Acetaminophen 325 MG TAB PO PRN ×2 (07:04→19:55)
[2017-06-15] MEDS: Famotidine 20 MG TAB PO SCH ×2 (07:55→19:54)
[2017-06-15] MEDS: Benzonatate 100 MG CAP PO SCH ×3 (07:55→19:54)
[2017-06-15] MEDS: Amlodipine 10 MG TAB PO SCH (07:56)
[2017-06-15] MEDS: Atorvastatin Calcium 40 MG TAB PO SCH (07:56)
[2017-06-15] MEDS: Aspirin 81 mg Enteric Coated Tablet PO SCH (07:56)
[2017-06-15] MEDS: Lisinopril 10 MG TAB PO SCH (07:56)
[2017-06-15] MEDS: Enoxaparin Sodium 40 MG/0.4 ML SYRINGE SC SCH (07:57)
[2017-06-15] MEDS: Milk Of Magnesia 30 ML UDCUP PO PRN (07:58)
--- NOTE | 2017-06-15 12:04 | PDOC.CTH ---
<Yun Mckinnon - Last Filed: 06/15/17 12:05> Cardiology Progress Note - Subjective The pt seen and examined. No overnight events. No cardiac complaints. He cont. coomplaining of chronic cough. On 5LNC. - Objective Vital Signs Temp Pulse Resp BP BP Pulse Ox 06/15/17 11:32 97.6 F 78 16 113/67 93 L 06/15/17 11:01 97.7 F 78 18 99/60 94 L 06/15/17 10:16 91 18 06/15/17 09:25 93 L 06/15/17 08:09 97.7 F 77 18 97/58 L 06/15/17 08:00 97.7 F 77 18 93 L 06/15/17 07:56 78 97/58 L 06/15/17 06:28 85 18 88 L 06/15/17 02:26 80 16 89 L Admit Weight 190 lb Weight 174 lb 3.2 oz 06/14/17 06/15/17 06/16/17 06:59 06:59 06:59 Intake Total 800 410 Output Total 900 850 Balance -100 -440 - Physical Examination General/Neuro: alert & oriented x3 Neck: no JVD present Lungs: other: (coases and diminished at bases) Heart: RRR Abdomen: soft Extremities: other: (No edema) - Labs Result Diagrams: 06/15/17 04:11 06/15/17 04:10 - Assessment/Plan 1. Acute hypoxic respiratory insufficiency possible due to Amiodarone lung vs atypical pneumonia - Cont. holding Amiodarone. IV antibiotics by PCP. 2. Paroxysmal afib - Remains in SR since 06/10/17 according to tele record; on ASA and Lovenox qd; Start Diltiazem 120mg daily; EP consult 3. Severe 3V CAD in 2013 (The pt refused to undergo CABG because he was asymptomatic at that time) - stable; cont. to monitor on tele; on HECTOR, ASA, Lovenox, and Statin; no on BBlocker due to SOB 4. HTN - Decrease Norvasc from 10mg to 5mg daily and start Diltiazem 120mg daily 5. Hyperlipidemia - on Statin MAR reviewed Review of Systems - Review of Systems Constitutional: reports: weakness EENTM: reports: no symptoms reported Respiratory: reports: see HPI Cardiac (ROS): reports: no symptoms reported ABD/GI: reports: no symptoms reported : reports: no symptoms reported <Annamaria Franco - Last Filed: 06/15/17 18:29> Cardiology Progress Note - Objective Vital Signs Temp Pulse Resp BP BP BP Pulse Ox 06/15/17 16:34 97.7 F 75 16 115/74 06/15/17 14:56 74 20 91 L 06/15/17 11:32 97.6 F 78 16 113/67 93 L 06/15/17 11:01 97.7 F 78 18 99/60 94 L 06/15/17 10:16 91 18 06/15/17 09:25 93 L 06/15/17 08:09 97.7 F 77 18 97/58 L 06/15/17 08:00 97.7 F 77 18 93 L 06/15/17 07:56 78 97/58 L Admit Weight 190 lb Weight 174 lb 3.2 oz 06/14/17 06/15/17 06/16/17 06:59 06:59 06:59 Intake Total 800 410 Output Total 900 850 Balance -100 -440 - Labs Result Diagrams: 06/15/17 04:11 06/15/17 04:10 - Assessment/Plan pt. seen and eval. b y me. I agree with the a/p by the PROPERTY CONTROLLER.Exam indicates continued coarse rales bilat. He is still dyspneic with minimal exeretion.
--- NOTE | 2017-06-15 14:47 | PDOC.PN ---
- Subjective Encounter Start Date: 06/15/17 Encounter Start Time: 14:51 Subjective: No new complaints. Reports feeling well. -: No acute events overnight. - Objective Resuscitation Status: Resuscitation Status FULL:Full Resuscitation Vital Signs & Weight: Vital Signs (12 hours) Temp Pulse Resp BP BP Pulse Ox 06/15/17 11:32 97.6 F 78 16 113/67 93 L 06/15/17 11:01 97.7 F 78 18 99/60 94 L 06/15/17 10:16 91 18 06/15/17 09:25 93 L 06/15/17 08:09 97.7 F 77 18 97/58 L 06/15/17 08:00 97.7 F 77 18 93 L 06/15/17 07:56 78 97/58 L 06/15/17 06:28 85 18 88 L Weight Admit Weight 190 lb Weight 174 lb 3.2 oz I&O: 06/14/17 06/15/17 06/16/17 06:59 06:59 06:59 Intake Total 800 410 Output Total 900 850 Balance -100 -440 Result Diagrams: 06/15/17 04:11 06/15/17 04:10 Phys Exam - Physical Examination Constitutional: NAD HEENT: PERRLA, moist MMs, sclera anicteric, oral pharynx no lesions Neck: no JVD, supple, full ROM Respiratory: no wheezing, no rales, no rhonchi decreased breath sounds bilaterally. Cardiovascular: RRR, no significant murmur, no rub Gastrointestinal: soft, non-tender, no distention, positive bowel sounds Musculoskeletal: no edema, pulses present Neurological: non-focal, moves all 4 limbs Psychiatric: normal affect, A&O x 3 Skin: no rash, normal turgor Dx/Plan (1) Acute respiratory failure with hypoxemia Code(s): J96.01 - ACUTE RESPIRATORY FAILURE WITH HYPOXIA Status: Acute Comment: Likely 2/2 amiodarone toxicity. Continues to require supplemental O2. (2) Amiodarone pulmonary toxicity Code(s): J98.4 - OTHER DISORDERS OF LUNG; T46.2X5A - ADVERSE EFFECT OF OTHER ANTIDYSRHYTHMIC DRUGS, INIT ENCNTR Status: Suspected (3) Atypical pneumonia Code(s): J18.9 - PNEUMONIA, UNSPECIFIED ORGANISM Status: Acute Comment: Continue Levofloxacin. (4) CAD (coronary artery disease) Code(s): I25.10 - ATHSCL HEART DISEASE OF [place] CORONARY ARTERY W/O ANG PCTRS Status: Chronic Qualifiers: Coronary Disease-Associated Artery/Lesion type: unspecified vessel or lesion type [place] vs. transplanted heart: [place] heart Associated angina: without angina Qualified Code(s): I25.10 - Atherosclerotic heart disease of [place] coronary artery without angina pectoris Comment: Stable, chest pain free. (5) Dyslipidemia Code(s): E78.5 - HYPERLIPIDEMIA, UNSPECIFIED Status: Chronic (6) Hypertension Code(s): I10 - ESSENTIAL (PRIMARY) HYPERTENSION Status: Chronic Qualifiers: Hypertension type: essential hypertension Qualified Code(s): I10 - Essential (primary) hypertension (7) Ischemic cardiomyopathy Code(s): I25.5 - ISCHEMIC CARDIOMYOPATHY Status: Chronic (8) Macrocytic anemia Code(s): D53.9 - NUTRITIONAL ANEMIA, UNSPECIFIED Status: Chronic (9) Paroxysmal atrial fibrillation Code(s): I48.0 - PAROXYSMAL ATRIAL FIBRILLATION Status: Chronic Comment: Rate controlled. - Plan cont current plan of care, respiratory therapy, incentive spirometry, DVT proph w/lovenox He will likely need to be discharged on oxygen. -: Continue Levofloxacin for atypical PNA. -: Monitor vital signs. -: Repeat CXR tomorrow. * . Review of Systems - Medications/Allergies Allergies/Adverse Reactions: Allergies Allergy/AdvReac Type Severity Reaction Status Date / Time No Known Allergies Allergy Verified 06/10/17 12:55 Medications: Current Medications Acetaminophen (Tylenol) 650 mg PO Q4H PRN PRN Reason: Headache/Fever or Pain Last Admin: 06/15/17 07:04 Dose: 650 mg Al Hydroxide/Mg Hydroxide (Maalox) 15 ml PO Q4H PRN PRN Reason: Heartburn or Indigestion Albuterol Sulfate (Ventolin) 2.5 mg NEB [id number] PRN PRN Reason: Wheezing Albuterol/Ipratropium (Duoneb) 3 ml [id number] [facility] Last Admin: 06/15/17 10:16 Dose: 3 ml Amlodipine Besylate (Norvasc) 5 mg PO DAILY [facility] Artificial Tears (Tears Naturale) 0 drop EA EYE PRN PRN PRN Reason: Dry Eyes Aspirin (Ecotrin) 81 mg PO QAM [facility] Last Admin: 06/15/17 07:56 Dose: 81 mg Atorvastatin Calcium (Lipitor) 40 mg PO QAM [facility] Last Admin: 06/15/17 07:56 Dose: 40 mg Benzonatate (Tessalon) 200 mg PO TID [facility] Last Admin: 06/15/17 14:07 Dose: 200 mg Diltiazem HCl (Cardizem Cd) 120 mg PO DAILY [facility] Enoxaparin Sodium (Lovenox) 40 mg SC 0900 [facility] Last Admin: 06/15/17 07:57 Dose: 40 mg Famotidine (Pepcid) 20 mg PO BID [facility] Last Admin: 06/15/17 07:55 Dose: 20 mg Guaifenesin/Dextromethorphan (Robitussin Dm) 15 ml PO Q6H PRN PRN Reason: Cough Last Admin: 06/14/17 09:13 Dose: 15 ml Hydralazine HCl (Apresoline) 10 mg SLOW IVP Q4H PRN PRN Reason: Systolic BP > 180 Levofloxacin (Levaquin) 500 mg PO 0600 [facility] Last Admin: 06/15/17 06:04 Dose: 500 mg Lisinopril (Zestril) [facility] Last Admin: 06/15/17 07:56 Dose: Not Given Loratadine (Claritin) 10 mg PO DAILYPRN PRN PRN Reason: Sinus Symptoms Last Admin: 06/13/17 20:05 Dose: 10 mg Magnesium Hydroxide (Milk Of Magnesium) 30 ml PO DAILYPRN PRN PRN Reason: Constipation Last Admin: 06/15/17 07:58 Dose: 30 ml Methylprednisolone Sodium Succinate (Solu-Medrol) 40 mg IVP Q6HR [facility] Last Admin: 06/15/17 11:05 Dose: 40 mg Mineral Oil/White Petrolatum (Eucerin Cream) 0 gm TOP BIDPRN PRN PRN Reason: Dry Skin Ondansetron HCl (Zofran) 4 mg IVP Q6H PRN PRN Reason: Nausea/Vomiting Phenol (Chloraseptic [place] 180 Ml Bot) 0 ml PO PRN PRN PRN Reason: Sore Throat Senna (Senokot) 2 tab PO HSPRN PRN PRN Reason: Constipation Sodium Chloride (Summers Nasal [place] 0.65%) 0 ml EA NARE QIDPRN PRN PRN Reason: Nasal Congestion Temazepam (Restoril) 30 mg PO HSPRN PRN PRN Reason: Insomnia Last Admin: 06/14/17 22:22 Dose: 30 mg
--- NOTE | 2017-06-15 17:16 | PRG ---
DATE OF SERVICE: 06/15/2017 SUBJECTIVE: Renee Mesa says he is feeling better. He is still on IV steroids. He is on p.o. Levaquin. He has no complaints. He is on nasal cannula now. OBJECTIVE: VITAL SIGNS: He is afebrile, heart rate 75, respiratory rate 16, blood pressure 115/74. LUNGS: Remarkable for crackles at his bases. HEART: Regular rhythm. ABDOMEN: Soft. IMPRESSION: 1. 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 2. Possible component of atypical pneumonia. 3. Anemia with a normal mean corpuscular volume is stable. 4. Leukocytosis that is improved. 5. Deconditioning and obesity. 6. History of paroxysmal atrial fibrillation. 7. History of 3-vessel coronary artery disease. The patient has declined bypass surgery in the past . 8. Hypertension. 9. Lipid disorder. PLAN: Continue supportive care. We will decrease his steroid dosing today.
[2017-06-15] MEDS: Temazepam 15 MG CAP PO PRN (19:55)
[2017-06-15] MEDS: Guaifenesin DM 100-10/5 ML UDCUP PO PRN (23:36)
[2017-06-16 05:49] LABS: #Lymphocytes 0.7 thou/uL (1.20-3.40); #Monocytes 1.1 thou/uL (0.11-0.59); #Neutrophils 10.2 thou/uL (1.40-6.50); %Basophils 0.2 % (0.0-1.0); %Eosinophils 0.1 % (0.0-10.0); %Neutrophils 84.7 % (42.0-75.0); Hemoglobin 13.1 g/dL (14.0-18.0); Mean Corpuscular HGB CONC 33.4 g/dL (32.0-36.0); Mean Corpuscular Hemoglobin 32.8 pg (27.0-31.0); Mean Corpuscular Volume 98.5 fl (80.0-94.0); Mean Platelet Volume 6.9 fL (7.4-10.4); Platelet Count 393 thou/uL (130-400); White Blood Cell (WBC) Count 12.1 thou/uL (4.8-10.8)
[2017-06-16 05:58] LABS: Anion Gap 11 mmol/L (10-20); BUN (Urea Nitrogen) 21 mg/dL (8.4-25.7); Calc. Creatinine Clearance 113 mL/min (70-130); Calcium 8.2 mg/dL (7.8-10.44); Carbon Dioxide 28 mmol/L (23-31); Chloride 104 mmol/L (98-107); Estimated GFR-MDRD Greater than 90; Glucose 118 mg/dL (83-110); Potassium 4.2 mmol/L (3.5-5.1); Sodium 139 mmol/L (136-145)
--- NOTE | 2017-06-16 07:41 | RAD ---
UPRIGHT PORTABLE CHEST 1 VIEW: Date: 06/16/17 HISTORY: 72-year-old male with history of persistent hypoxemia. COMPARISON: 06/13/17. FINDINGS: Extensive bilateral stable interstitial and reticulonodular parenchymal changes in both lungs, more p rominent on the right side. Appearance is stable from 06/13/17. IMPRESSION: Bilateral interstitial and reticulonodular parenchymal changes throughout the right lung and primaril y the left mid and lower lung zone, stable from prior study. No new process. POS: RACHANA
[2017-06-16] MEDS: Atorvastatin Calcium 40 MG TAB PO SCH (08:12)
[2017-06-16] MEDS: Benzonatate 100 MG CAP PO SCH ×3 (08:12→20:17)
[2017-06-16] MEDS: Aspirin 81 mg Enteric Coated Tablet PO SCH (08:12)
[2017-06-16] MEDS: Famotidine 20 MG TAB PO SCH ×2 (08:12→20:17)
[2017-06-16] MEDS: Enoxaparin Sodium 40 MG/0.4 ML SYRINGE SC SCH (08:13)
[2017-06-16] MEDS: Lisinopril 10 MG TAB PO SCH (08:13)
[2017-06-16] MEDS ORDERED: Amlodipine 5 MG TAB PO SCH (09:00)
--- NOTE | 2017-06-16 11:31 | PDOC.CTH ---
<Yun Mckinnon - Last Filed: 06/16/17 13:49> Cardiology Progress Note - Subjective The pt seen and examined. No overnight events. No cardiac complaints. He complains of dizziness after administering 1st dose of Diltiazem. VS is stable. - Objective Vital Signs Temp Pulse Resp BP BP BP Pulse Ox 06/16/17 10:16 78 20 06/16/17 08:13 108/62 06/16/17 08:12 78 108/62 06/16/17 08:00 97.7 F 78 18 112/69 98 06/16/17 07:16 75 18 89 L 06/16/17 04:00 97.6 F 67 20 111/69 90 L 06/16/17 02:12 71 16 91 L 06/16/17 00:04 97.9 F 76 16 115/65 06/16/17 00:00 92 L Admit Weight 190 lb Weight 174 lb 3.2 oz 06/15/17 06/16/17 06/17/17 06:59 06:59 06:59 Intake Total 410 900 Output Total 850 1950 Balance -440 -1050 - Physical Examination General/Neuro: alert & oriented x3 Neck: no JVD present Lungs: other: (coarse at bases) Heart: RRR Abdomen: soft Extremities: other: (No edema) - Labs Result Diagrams: 06/16/17 04:57 06/16/17 04:57 - Assessment/Plan 1. Acute hypoxic respiratory insufficiency possible due to Amiodarone lung vs atypical pneumonia - Cont. holding Amiodarone. IV antibiotics by PCP. 2. Paroxysmal afib - Remains in SR since 06/10/17 according to tele record; on ASA and Lovenox qd; Complains of dizziness with 1st dose of Diltiazem 120mg today; his VS is stable; cont. current med 3. Severe 3V CAD in 2013 (The pt refused to undergo CABG because he was asymptomatic at that time) - stable; cont. to monitor on tele; on HECTOR, ASA, Lovenox, and Statin; no on BBlocker due to SOB 4. HTN - stable 5. Hyperlipidemia - on Statin MAR reviewed Review of Systems - Review of Systems Constitutional: reports: see HPI EENTM: reports: no symptoms reported Respiratory: reports: no symptoms reported Cardiac (ROS): reports: see HPI ABD/GI: reports: no symptoms reported : reports: no symptoms reported <Annamaria Franco - Last Filed: 06/16/17 16:48> Cardiology Progress Note - Objective Vital Signs Temp Pulse Resp BP BP Pulse Ox 06/16/17 12:00 97.8 F 72 18 105/63 97 06/16/17 10:16 78 20 06/16/17 08:13 108/62 06/16/17 08:12 78 108/62 06/16/17 08:00 97.7 F 78 18 112/69 98 06/16/17 07:16 75 18 89 L Admit Weight 190 lb Weight 174 lb 3.2 oz 06/15/17 06/16/17 06/17/17 06:59 06:59 06:59 Intake Total 410 900 Output Total 850 1950 Balance -440 -1050 - Labs Result Diagrams: 06/16/17 04:57 06/16/17 04:57 - Assessment/Plan Pt. seen and eval. by me. I agree with the A/P by the [employer] REPRESENTATIVE. He sounds better today with only mild rales. he did have an episode earlier today where he felt dizzy and the BP was decreased. i will decrease the dose of the amlodipine.
--- NOTE | 2017-06-16 12:26 | PDOC.PN ---
- Subjective Encounter Start Date: 06/16/17 Encounter Start Time: 12:24 Subjective: less sob, some dizziness post first dose cardizem - Objective Resuscitation Status: Resuscitation Status FULL:Full Resuscitation MAR Reviewed: Yes Vital Signs & Weight: Vital Signs (12 hours) Temp Pulse Resp BP BP BP Pulse Ox 06/16/17 10:16 78 20 06/16/17 08:13 108/62 06/16/17 08:12 78 108/62 06/16/17 08:00 97.7 F 78 18 112/69 98 06/16/17 07:16 75 18 89 L 06/16/17 04:00 97.6 F 67 20 111/69 90 L 06/16/17 02:12 71 16 91 L Weight Admit Weight 190 lb Weight 174 lb 3.2 oz I&O: 06/15/17 06/16/17 06/17/17 06:59 06:59 06:59 Intake Total 410 900 Output Total 850 1950 Balance -440 -1050 Result Diagrams: 06/16/17 04:57 06/16/17 04:57 Phys Exam - Physical Examination Neck: no JVD post rales Cardiovascular: RRR, no significant murmur Gastrointestinal: soft, positive bowel sounds Musculoskeletal: no edema Dx/Plan (1) PNA (pneumonia) Code(s): J18.9 - PNEUMONIA, UNSPECIFIED ORGANISM Status: Deleted Qualifiers: Pneumonia type: due to unspecified organism Laterality: bilateral (2) Atrial fibrillation Code(s): I48.91 - UNSPECIFIED ATRIAL FIBRILLATION Status: Deleted Qualifiers: Atrial fibrillation type: paroxysmal Qualified Code(s): I48.0 - Paroxysmal atrial fibrillation (3) Acute respiratory failure with hypoxemia Code(s): J96.01 - ACUTE RESPIRATORY FAILURE WITH HYPOXIA Status: Acute Comment: Likely 2/2 amiodarone toxicity. Continues to require supplemental O2. (4) CAD (coronary artery disease) Code(s): I25.10 - ATHSCL HEART DISEASE OF [place] CORONARY ARTERY W/O ANG PCTRS Status: Acute (5) Hypertension Code(s): I10 - ESSENTIAL (PRIMARY) HYPERTENSION Status: Chronic Qualifiers: Hypertension type: essential hypertension Qualified Code(s): I10 - Essential (primary) hypertension (6) Ischemic cardiomyopathy Code(s): I25.5 - ISCHEMIC CARDIOMYOPATHY Status: Chronic - Plan cont off amiodarone -: cont asa, statin, amlodipine, HECTOR -: discuss wiyh Card. and Pulmon. * .
--- NOTE | 2017-06-16 15:12 | PRG ---
DATE OF SERVICE: 06/16/2017 SUBJECTIVE: Mr. Mesa is doing well. He has no new complaints. OBJECTIVE: VITAL SIGNS: He is afebrile, heart rate 72, respiratory rate is 18, oximetry is 97, blood pressure 1 05/63. GENERAL: He said he became very lightheaded earlier today when he sat up, though I do not find any d ocumentation of a low blood pressure. LUNGS: Still remarkable for crackles at his bases. CARDIOVASCULAR: Regular rhythm. ABDOMEN: Soft. EXTREMITIES: Without asymmetry. LABORATORY DATA: White count 12.1, hemoglobin 13.1, platelets 393. Electrolytes are normal. IMPRESSION: 1. ? Amiodarone hypersensitivity pneumonitis. 2. Possible atypical pneumonia. 3. Atrial fibrillation. 4. Anticoagulation. 5. Deconditioning. 6. Anemia with a normal mean corpuscular volume. 6. Improved leukocytosis. 7. Three vessel coronary disease. He has declined surgery in the past. 8. Hypertension and lipid disorder. PLAN: Continue current care, which includes p.o. antibiotics, p.o. steroids. Adjust her cardiac med s by Cardiology.
[2017-06-16] MEDS: Acetaminophen 325 MG TAB PO PRN (18:35)
[2017-06-16] MEDS: Temazepam 15 MG CAP PO PRN (20:18)
[2017-06-17 04:47] LABS: Anion Gap 8 mmol/L (10-20); BUN (Urea Nitrogen) 20 mg/dL (8.4-25.7); Calc. Creatinine Clearance 115 mL/min (70-130); Calcium 8.3 mg/dL (7.8-10.44); Carbon Dioxide 30 mmol/L (23-31); Chloride 106 mmol/L (98-107); Estimated GFR-MDRD Greater than 90; Glucose 115 mg/dL (83-110); Potassium 4.5 mmol/L (3.5-5.1); Sodium 139 mmol/L (136-145)
[2017-06-17 05:18] LABS: Hemoglobin 13.1 g/dL (14.0-18.0); Lymphocytes 8 % (21-51); MDiff Complete? YES; Mean Corpuscular HGB CONC 32.7 g/dL (32.0-36.0); Mean Corpuscular Hemoglobin 32.3 pg (27.0-31.0); Mean Corpuscular Volume 98.7 fl (80.0-94.0); Mean Platelet Volume 7.3 fL (7.4-10.4); Monocytes 6 % (0-10); Neutrophil 86 % (42-75); PLT Morphology Comment Appears Increased; Platelet Count 418 thou/uL (130-400); RBC Distribution Width 12.2 % (11.5-14.5); Red Blood Cell (RBC) Count 4.05 mill/uL (4.70-6.10); White Blood Cell (WBC) Count 15.1 thou/uL (4.8-10.8)
[2017-06-17] MEDS: Benzonatate 100 MG CAP PO SCH ×3 (08:01→21:16)
[2017-06-17] MEDS: Famotidine 20 MG TAB PO SCH ×2 (08:01→21:16)
[2017-06-17] MEDS: Atorvastatin Calcium 40 MG TAB PO SCH (08:01)
[2017-06-17] MEDS: Aspirin 81 mg Enteric Coated Tablet PO SCH (08:01)
[2017-06-17] MEDS: Lisinopril 10 MG TAB PO SCH (08:02)
[2017-06-17] MEDS: Amlodipine 5 MG TAB PO SCH (08:02)
[2017-06-17] MEDS: Enoxaparin Sodium 40 MG/0.4 ML SYRINGE SC SCH (08:03)
--- NOTE | 2017-06-17 08:52 | PDOC.CTH ---
<Yun Mckinnon - Last Filed: 06/17/17 08:49> Cardiology Progress Note - Subjective The pt seen and examined. No overnight events. No cardiac complaints. He is sitting at bedside and eating breakfast without any difficulties. - Objective Vital Signs Temp Pulse Resp BP BP BP Pulse Ox 06/17/17 08:02 70 110/60 06/17/17 08:01 76 110/60 06/17/17 07:42 97.7 F 70 20 110/60 86 L 06/17/17 06:13 68 18 92 L 06/17/17 04:11 91 L 06/17/17 04:00 98.2 F 70 20 104/64 06/16/17 22:49 71 20 91 L 06/16/17 21:49 98.2 F 69 20 91 L Admit Weight 190 lb Weight 174 lb 3.2 oz 06/16/17 06/17/17 06/18/17 06:59 06:59 06:59 Intake Total 900 350 Output Total 1950 750 Balance -1050 -400 - Physical Examination General/Neuro: alert & oriented x3 Neck: no JVD present Lungs: other: (coarses and diminished at bases) Heart: RRR Abdomen: soft Extremities: other: (No edema) - Labs Result Diagrams: 06/17/17 04:15 06/17/17 04:15 - Assessment/Plan 1. Acute hypoxic respiratory insufficiency possible due to Amiodarone lung vs atypical pneumonia - Cont. holding Amiodarone. IV antibiotics by PCP. 2. Paroxysmal afib - Remains in SR since 06/10/17 according to tele record; on ASA and Lovenox qd; No dizziness this AM. 3. Severe 3V CAD in 2013 (The pt refused to undergo CABG because he was asymptomatic at that time) - stable; cont. to monitor on tele; on HECTOR, ASA, Lovenox, and Statin; no on BBlocker due to SOB 4. HTN - stable; No complains of dizziness after dose of Norvasc was adjusted. 5. Hyperlipidemia - on Statin MAR reviewed Review of Systems - Review of Systems Constitutional: reports: no symptoms reported EENTM: reports: no symptoms reported Respiratory: reports: no symptoms reported Cardiac (ROS): reports: no symptoms reported ABD/GI: reports: no symptoms reported : reports: no symptoms reported <Annamaria Franco - Last Filed: 06/17/17 17:38> Cardiology Progress Note - Objective Vital Signs Temp Pulse Resp BP BP Pulse Ox 06/17/17 16:43 97.9 F 72 20 106/63 91 L 06/17/17 11:20 97.7 F 68 18 102/63 94 L 06/17/17 09:30 78 20 93 L 06/17/17 08:02 70 110/60 06/17/17 08:01 76 110/60 06/17/17 08:00 97.9 F 78 20 91 L 06/17/17 07:42 97.7 F 70 20 110/60 86 L 06/17/17 06:13 68 18 92 L Admit Weight 190 lb Weight 174 lb 3.2 oz 06/16/17 06/17/17 06/18/17 06:59 06:59 06:59 Intake Total 900 350 Output Total 1950 750 Balance -1050 -400 - Labs Result Diagrams: 06/17/17 04:15 06/17/17 04:15 - Assessment/Plan Pt. seen and eval. by me. I agree with the A/P by the [employer]. He continues to improve. Few basilar rales. RRR. Continue present meds.
[2017-06-17] MEDS ORDERED: Amlodipine 5 MG TAB PO SCH (09:00)
--- NOTE | 2017-06-17 11:03 | PDOC.PN ---
- Subjective Encounter Start Date: 06/17/17 Encounter Start Time: 11:01 Subjective: sob stable on O2, has occ severe coughing spasms - Objective Resuscitation Status: Resuscitation Status FULL:Full Resuscitation MAR Reviewed: Yes Vital Signs & Weight: Vital Signs (12 hours) Temp Pulse Resp BP BP BP Pulse Ox 06/17/17 09:30 78 20 93 L 06/17/17 08:02 70 110/60 06/17/17 08:01 76 110/60 06/17/17 08:00 97.9 F 78 20 91 L 06/17/17 07:42 97.7 F 70 20 110/60 86 L 06/17/17 06:13 68 18 92 L 06/17/17 04:11 91 L 06/17/17 04:00 98.2 F 70 20 104/64 Weight Admit Weight 190 lb Weight 174 lb 3.2 oz I&O: 06/16/17 06/17/17 06/18/17 06:59 06:59 06:59 Intake Total 900 350 Output Total 1950 750 Balance -1050 -400 Result Diagrams: 06/17/17 04:15 06/17/17 04:15 Phys Exam - Physical Examination Neck: no JVD clear ant., diffuse rales post. Cardiovascular: RRR, no significant murmur Gastrointestinal: soft, positive bowel sounds Musculoskeletal: no edema Dx/Plan (1) PNA (pneumonia) Code(s): J18.9 - PNEUMONIA, UNSPECIFIED ORGANISM Status: Deleted Qualifiers: Pneumonia type: due to unspecified organism Laterality: bilateral (2) Atrial fibrillation Code(s): I48.91 - UNSPECIFIED ATRIAL FIBRILLATION Status: Deleted Qualifiers: Atrial fibrillation type: paroxysmal Qualified Code(s): I48.0 - Paroxysmal atrial fibrillation (3) Acute respiratory failure with hypoxemia Code(s): J96.01 - ACUTE RESPIRATORY FAILURE WITH HYPOXIA Status: Acute Comment: Likely 2/2 amiodarone toxicity. Continues to require supplemental O2. (4) CAD (coronary artery disease) Code(s): I25.10 - ATHSCL HEART DISEASE OF [place] CORONARY ARTERY W/O ANG PCTRS Status: Acute Qualifiers: Coronary Disease-Associated Artery/Lesion type: [place] artery [place] vs. transplanted heart: [place] heart Associated angina: without angina Qualified Code(s): I25.10 - Atherosclerotic heart disease of [place] coronary artery without angina pectoris (5) Hypertension Code(s): I10 - ESSENTIAL (PRIMARY) HYPERTENSION Status: Chronic Qualifiers: Hypertension type: essential hypertension Qualified Code(s): I10 - Essential (primary) hypertension (6) Ischemic cardiomyopathy Code(s): I25.5 - ISCHEMIC CARDIOMYOPATHY Status: Chronic - Plan cont levaquin, nebs, O2 -: cont off amiodarone -: cont ASA, diltiazem , etc -: discuss with pulmonology -: tessalon for cough * .
--- NOTE | 2017-06-17 12:26 | PRG ---
DATE OF SERVICE: 06/17/2017 He said he feels much better than he felt when he came into the hospital. He says he even feels bett er than he felt a couple of days ago. PHYSICAL EXAMINATION: VITAL SIGNS: He is afebrile, heart rate 68, respiratory rate is 18, oximetry is 94 on a cannula, blo od pressure 102/63. LUNGS: Lungs are remarkable for crackles at his bases. HEART: Regular rhythm. ABDOMEN: Soft. LABORATORY DATA: White count 15.1, hemoglobin 13.1, platelets 418. Electrolytes are normal. IMPRESSION: 1. ? Amiodarone hypersensitivity. If he is here Tuesday plan to repeat a chest radiograph. 2. ? Community-acquired atypical pneumonia. Antibiotics for a total 10-14 days. 3. History of paroxysmal atrial fibrillation. 4. Deconditioning, which is improving. He says he can walk without assistance, but he has been told not to walk unless physical therapist are with him. 4. History of anticoagulation. 5. Anemia with normal MCV. 6. Leukocytosis that improved. 7. Three vessel coronary disease. He has declined surgery in the past. 8. Hypertension. 9. Lipid disorder. PLAN: Continue prednisone and antimicrobial therapy, physical therapy.
[2017-06-17] MEDS: Acetaminophen 325 MG TAB PO PRN (21:19)
[2017-06-17] MEDS: Temazepam 15 MG CAP PO PRN (23:46)
[2017-06-18 04:44] LABS: Anion Gap 10 mmol/L (10-20); BUN (Urea Nitrogen) 20 mg/dL (8.4-25.7); Calc. Creatinine Clearance 119 mL/min (70-130); Calcium 8.2 mg/dL (7.8-10.44); Carbon Dioxide 28 mmol/L (23-31); Chloride 104 mmol/L (98-107); Estimated GFR-MDRD Greater than 90; Glucose 113 mg/dL (83-110); Potassium 4.3 mmol/L (3.5-5.1); Sodium 138 mmol/L (136-145)
[2017-06-18 05:05] LABS: Band 1 % (5-11); Hemoglobin 13.4 g/dL (14.0-18.0); Lymphocytes 15 % (21-51); MDiff Complete? YES; Macrocytosis SLIGHT = 6-15 cells (100X) (0-5/hpf); Mean Corpuscular HGB CONC 32.3 g/dL (32.0-36.0); Mean Corpuscular Volume 99.1 fl (80.0-94.0); Mean Platelet Volume 7.1 fL (7.4-10.4); Monocytes 7 % (0-10); Neutrophil 75 % (42-75); PLT Morphology Comment Appears Increased; Platelet Count 446 thou/uL (130-400); Reactive Lymphocytes 2 % (0-10); Red Blood Cell (RBC) Count 4.18 mill/uL (4.70-6.10); White Blood Cell (WBC) Count 14.8 thou/uL (4.8-10.8)
[2017-06-18] MEDS: Benzonatate 100 MG CAP PO SCH ×3 (08:00→21:16)
[2017-06-18] MEDS: Famotidine 20 MG TAB PO SCH ×2 (08:01→21:16)
[2017-06-18] MEDS: Atorvastatin Calcium 40 MG TAB PO SCH (08:01)
[2017-06-18] MEDS: Aspirin 81 mg Enteric Coated Tablet PO SCH (08:01)
[2017-06-18] MEDS: Amlodipine 5 MG TAB PO SCH (08:02)
[2017-06-18] MEDS: Enoxaparin Sodium 40 MG/0.4 ML SYRINGE SC SCH (08:05)
--- NOTE | 2017-06-18 10:44 | PRG ---
DATE OF SERVICE: 06/18/2017 SUBJECTIVE: Mr. Mesa is complaining of cough and congestion. OBJECTIVE: VITAL SIGNS: Temperature 97.3, pulse 65, pressure 111/58, O2 sats 95% on 5 liters, respiratory rate 20. HEENT: Unremarkable. NECK: No JVD. LUNGS: Inspiratory crackles at bases bilaterally. CARDIOVASCULAR: S1, S2 regular. ABDOMEN: Soft. EXTREMITIES: No edema. LABORATORY DATA: White blood cell count 14, hematocrit 41, platelet count 446. Sodium 130, [place] m 4.3, chloride 104, CO2 28, BUN 20, creatinine 0.6, glucose 113. ASSESSMENT: 1. 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 2. Chronic hypoxic respiratory failure. 3. Deconditioning. PLAN: The amiodarone has been stopped. He is continuing on antibiotics and steroids. It is anticip ated it will take some time for his oxygenation to improve.
--- NOTE | 2017-06-18 10:57 | PDOC.PN ---
- Subjective Encounter Start Date: 06/18/17 Encounter Start Time: 10:55 Subjective: weak, difficult to get up and about - Objective Resuscitation Status: Resuscitation Status FULL:Full Resuscitation MAR Reviewed: Yes Vital Signs & Weight: Vital Signs (12 hours) Temp Pulse Resp BP BP BP Pulse Ox 06/18/17 08:02 65 111/58 L 06/18/17 08:00 97.3 F L 65 20 95 06/18/17 07:52 97.3 F L 71 18 111/58 L 96 06/18/17 06:35 68 18 102/55 L 97 06/18/17 02:42 61 93 L 06/18/17 00:23 95 Weight Admit Weight 190 lb Weight 178 lb 1.6 oz I&O: 06/17/17 06/18/17 06/19/17 06:59 06:59 06:59 Intake Total 350 Output Total 750 Balance -400 Result Diagrams: 06/18/17 03:33 06/18/17 03:33 Phys Exam - Physical Examination Constitutional: NAD Neck: no JVD post rales unchanged Cardiovascular: RRR, no significant murmur Gastrointestinal: soft, positive bowel sounds Musculoskeletal: edema present Dx/Plan (1) PNA (pneumonia) Code(s): J18.9 - PNEUMONIA, UNSPECIFIED ORGANISM Status: Deleted Qualifiers: Pneumonia type: due to unspecified organism Laterality: bilateral (2) Atrial fibrillation Code(s): I48.91 - UNSPECIFIED ATRIAL FIBRILLATION Status: Deleted Qualifiers: Atrial fibrillation type: paroxysmal Qualified Code(s): I48.0 - Paroxysmal atrial fibrillation (3) Acute respiratory failure with hypoxemia Code(s): J96.01 - ACUTE RESPIRATORY FAILURE WITH HYPOXIA Status: Acute Comment: Likely 2/2 amiodarone toxicity. Continues to require supplemental O2. (4) CAD (coronary artery disease) Code(s): I25.10 - ATHSCL HEART DISEASE OF [place] CORONARY ARTERY W/O ANG PCTRS Status: Acute Qualifiers: Coronary Disease-Associated Artery/Lesion type: [place] artery [place] vs. transplanted heart: [place] heart Associated angina: without angina Qualified Code(s): I25.10 - Atherosclerotic heart disease of [place] coronary artery without angina pectoris (5) Hypertension Code(s): I10 - ESSENTIAL (PRIMARY) HYPERTENSION Status: Chronic Qualifiers: Hypertension type: essential hypertension Qualified Code(s): I10 - Essential (primary) hypertension (6) Ischemic cardiomyopathy Code(s): I25.5 - ISCHEMIC CARDIOMYOPATHY Status: Chronic - Plan cont steroids, O2. rpt cxr 06/20 -: cont antibx, nebs -: cont ASA, statin, diltiazem, etc * .
[2017-06-18] MEDS: Lisinopril 10 MG TAB PO SCH (11:04)
[2017-06-18] MEDS: Guaifenesin DM 100-10/5 ML UDCUP PO PRN (11:27)
[2017-06-19] MEDS: Temazepam 15 MG CAP PO PRN (00:37)
[2017-06-19] MEDS: Acetaminophen 325 MG TAB PO PRN (00:40)
[2017-06-19 04:36] LABS: #Lymphocytes 0.7 thou/uL (1.20-3.40); #Monocytes 0.9 thou/uL (0.11-0.59); #Neutrophils 12.5 thou/uL (1.40-6.50); %Basophils 0.1 % (0.0-1.0); %Eosinophils 0.1 % (0.0-10.0); %Lymphocytes 4.7 % (21.0-51.0); %Monocytes 6.4 % (0.0-10.0); %Neutrophils 88.7 % (42.0-75.0); Hemoglobin 13.5 g/dL (14.0-18.0); Mean Corpuscular HGB CONC 32.5 g/dL (32.0-36.0); Mean Corpuscular Hemoglobin 32.5 pg (27.0-31.0); Mean Platelet Volume 7.1 fL (7.4-10.4); Platelet Count 449 thou/uL (130-400); RBC Distribution Width 12.1 % (11.5-14.5); Red Blood Cell (RBC) Count 4.14 mill/uL (4.70-6.10); White Blood Cell (WBC) Count 14.1 thou/uL (4.8-10.8)
[2017-06-19 04:39] LABS: Anion Gap 8 mmol/L (10-20); BUN (Urea Nitrogen) 20 mg/dL (8.4-25.7); Calc. Creatinine Clearance 132 mL/min (70-130); Calcium 8.1 mg/dL (7.8-10.44); Carbon Dioxide 29 mmol/L (23-31); Chloride 106 mmol/L (98-107); Estimated GFR-MDRD Greater than 90; Glucose 120 mg/dL (83-110); Potassium 4.3 mmol/L (3.5-5.1); Sodium 139 mmol/L (136-145)
[2017-06-19] MEDS: Aspirin 81 mg Enteric Coated Tablet PO SCH (08:39)
[2017-06-19] MEDS: Famotidine 20 MG TAB PO SCH ×2 (08:39→21:17)
[2017-06-19] MEDS: Lisinopril 10 MG TAB PO SCH (08:39)
[2017-06-19] MEDS: Atorvastatin Calcium 40 MG TAB PO SCH (08:40)
[2017-06-19] MEDS: Benzonatate 100 MG CAP PO SCH ×3 (08:40→21:16)
[2017-06-19] MEDS: Amlodipine 5 MG TAB PO SCH (08:41)
[2017-06-19] MEDS: Enoxaparin Sodium 40 MG/0.4 ML SYRINGE SC SCH (08:41)
[2017-06-19] MEDS: Guaifenesin DM 100-10/5 ML UDCUP PO PRN ×2 (08:43→15:39)
--- NOTE | 2017-06-19 10:59 | PDOC.PN ---
- Subjective Encounter Start Date: 06/19/17 Encounter Start Time: 10:58 Patient seen and examined, returned from physical therapy, complaining of SOB and coughing, no other issues. All questions answered. - Objective Resuscitation Status: Resuscitation Status FULL:Full Resuscitation Vital Signs & Weight: Vital Signs (12 hours) Temp Pulse Resp BP BP BP Pulse Ox 06/19/17 08:41 64 117/63 06/19/17 08:40 64 117/63 06/19/17 08:39 117/63 06/19/17 08:00 97.5 F L 64 20 117/63 93 L 06/19/17 04:00 64 96 06/19/17 02:21 94 L 06/19/17 00:00 63 122/72 97 Weight Admit Weight 190 lb Weight 178 lb 9.6 oz I&O: 06/18/17 06/19/17 06/20/17 06:59 06:59 06:59 Intake Total 400 Output Total 250 Balance 150 Result Diagrams: 06/19/17 04:18 06/19/17 04:18 Phys Exam - Physical Examination coughing, mild distress HEENT: PERRLA, moist MMs, sclera anicteric Neck: no nodes, no JVD, supple Respiratory: no wheezing, no rales, no rhonchi Cardiovascular: RRR, no significant murmur, no rub Gastrointestinal: soft, non-tender, no distention Musculoskeletal: no edema, pulses present Neurological: non-focal, normal sensation Dx/Plan (1) Acute respiratory failure with hypoxemia Code(s): J96.01 - ACUTE RESPIRATORY FAILURE WITH HYPOXIA Status: Acute Comment: Likely 2/2 amiodarone toxicity. Continues to require supplemental O2. (2) CAD (coronary artery disease) Code(s): I25.10 - ATHSCL HEART DISEASE OF [place] CORONARY ARTERY W/O ANG PCTRS Status: Acute Qualifiers: Coronary Disease-Associated Artery/Lesion type: [place] artery [place] vs. 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
--- NOTE | 2017-06-19 12:31 | PRG ---
DATE OF SERVICE: 06/19/2017 SUBJECTIVE: The patient is sitting up. He actually just got done walking around with Physical Thera py. He says he still feels short of breath. He is also complaining of some shoulder pain. PHYSICAL EXAMINATION: VITAL SIGNS: His temperature is 97.5, pulse 64, blood pressure 117/63, O2 sat 94% on 4.5 liters. HEENT: Unremarkable. NECK: No JVD. CHEST: Fairly clear without wheezing or rhonchi. ABDOMEN: Soft and nontender. EXTREMITIES: No clubbing, cyanosis, or edema. LABORATORY DATA: Demonstrated white blood cell count of 14, hematocrit 41.4, platelet count 449. So dium 139, potassium 4.3, chloride 106, CO2 29, BUN 20, creatinine 0.6, glucose 120. ASSESSMENT: 1. Amiodarone lung toxicity. 2. Acute hypoxic respiratory failure. PLAN: I think we can probably cut down on his labs since his numbers have all been stable. He is co ntinuing on IV steroids, but I think he can probably be switched over to oral steroids later this jinny licona. My plan would be 1 mg/kg for a week and then start tapering.
--- NOTE | 2017-06-19 13:03 | PRG ---
DATE OF SERVICE: 06/19/2017 SUBJECTIVE: Mr. Mesa states he is doing okay, but he gets lightheaded. He said after he takes the morning medicines, likely it is due to the diltiazem. PHYSICAL EXAMINATION: VITAL SIGNS: His blood pressure 117/63, pulse 64. Pressure has been on the low side. LUNGS: There are some scattered rales. CARDIAC: Normal S1, normal S2, somewhat distant. ABDOMEN: Soft and nontender. ASSESSMENT: 1. Probable amiodarone pulmonary toxicity. 2. Lightheaded, may be getting some bradycardia on diltiazem and he still clearly has lot of amiodar one in this system. PLAN: 1. We will hold off on the diltiazem for now. May need to be restarted in a couple of weeks. 2. Discussed with the family that he could have recurrent atrial fibrillation, off of amiodarone now . Need to be monitored. 3. He is on prednisone.
[2017-06-19] MEDS: predniSONE 20 MG TAB PO SCH (21:20)
[2017-06-20] MEDS: Acetaminophen 325 MG TAB PO PRN (00:30)
[2017-06-20] MEDS: Temazepam 15 MG CAP PO PRN (00:31)
[2017-06-20] MEDS: Benzonatate 100 MG CAP PO SCH ×3 (08:40→20:14)
[2017-06-20] MEDS: Famotidine 20 MG TAB PO SCH ×2 (08:41→20:14)
[2017-06-20] MEDS: Amlodipine 5 MG TAB PO SCH (08:41)
[2017-06-20] MEDS: predniSONE 20 MG TAB PO SCH ×2 (08:42→20:15)
[2017-06-20] MEDS: Lisinopril 10 MG TAB PO SCH (08:43)
[2017-06-20] MEDS: Atorvastatin Calcium 40 MG TAB PO SCH (08:43)
[2017-06-20] MEDS: Aspirin 81 mg Enteric Coated Tablet PO SCH (08:43)
[2017-06-20] MEDS: Enoxaparin Sodium 40 MG/0.4 ML SYRINGE SC SCH (08:43)
--- NOTE | 2017-06-20 13:05 | PRG ---
DATE OF SERVICE: 06/20/2017 SUBJECTIVE: Mr. Mesa has no new complaints. He said he walked with physical therapy this morn ing. PHYSICAL EXAMINATION: VITAL SIGNS: He is afebrile, heart rate 64, respiratory rate 16, oximetry is 97% on 5 liters. LUNGS: Clear. HEART: Regular rhythm. ABDOMEN: Soft. IMPRESSION: 1. Possible hypersensitivity reaction to amiodarone versus a component of atypical pneumonia. 2. Upper airway cough with his pulmonary abnormalities. 3. Paroxysmal atrial fibrillation. PLAN: Continue supportive care with daily weaning attempts, try and wean him to the lowest flow FIO2 if possible.
--- NOTE | 2017-06-20 14:33 | PDOC.CTH ---
Cardiology Progress Note - Subjective The pt seen and examined. No overnight events. No cardiac complaints. He feels sightly better breathing today than yesterday when he walked with PTs today. - Objective Vital Signs Temp Pulse Resp BP BP BP Pulse Ox 06/20/17 11:18 97.6 F 64 16 97/59 L 97 06/20/17 09:53 06/20/17 08:43 124/68 06/20/17 08:41 65 124/68 06/20/17 08:00 97.8 F 65 18 124/68 97 06/20/17 04:00 97.7 F 67 20 98/60 91 L Pulse Ox Pulse Ox Pulse Ox 06/20/17 11:18 06/20/17 09:53 93 L 85 L 92 L 06/20/17 08:43 06/20/17 08:41 06/20/17 08:00 06/20/17 04:00 Admit Weight 190 lb Weight 173 lb 3.2 oz 06/19/17 06/20/17 06/21/17 06:59 06:59 06:59 Intake Total 400 1500 Output Total 250 800 Balance 150 700 - Physical Examination General/Neuro: alert & oriented x3 Neck: no JVD present Lungs: other: (coarses and diminished at bases) Heart: RRR Abdomen: soft Extremities: other: (No edema) - Labs Result Diagrams: 06/19/17 04:18 06/19/17 04:18 - Assessment/Plan 1. Acute hypoxic respiratory insufficiency possible due to Amiodarone lung vs atypical pneumonia - Cont. holding Amiodarone. IV antibiotics by PCP. 2. Paroxysmal afib - Remains in SR since 06/10/17 according to tele record; Diltiazem is on hold due to dizziness after taking this med. On ASA and Lovenox. 3. Severe 3V CAD in 2013 (The pt refused to undergo CABG because he was asymptomatic at that time) - stable; on HECTOR, ASA, Lovenox, and Statin; no on BBlocker due to SOB 4. HTN - stable; No complains of dizziness after Diltiazem is on hold. 5. Hyperlipidemia - on Statin MAR reviewed Review of Systems - Review of Systems Constitutional: reports: no symptoms reported EENTM: reports: no symptoms reported Respiratory: reports: see HPI Cardiac (ROS): reports: no symptoms reported ABD/GI: reports: no symptoms reported : reports: no symptoms reported
[2017-06-21] MEDS: Temazepam 15 MG CAP PO PRN (00:29)
[2017-06-21] MEDS: Acetaminophen 325 MG TAB PO PRN (00:29)
[2017-06-21] MEDS: Enoxaparin Sodium 40 MG/0.4 ML SYRINGE SC SCH (08:39)
[2017-06-21] MEDS: Aspirin 81 mg Enteric Coated Tablet PO SCH (08:40)
[2017-06-21] MEDS: Benzonatate 100 MG CAP PO SCH ×3 (08:40→20:36)
[2017-06-21] MEDS: Famotidine 20 MG TAB PO SCH ×2 (08:40→20:36)
[2017-06-21] MEDS: Atorvastatin Calcium 40 MG TAB PO SCH (08:41)
[2017-06-21] MEDS: predniSONE 20 MG TAB PO SCH (08:41)
--- NOTE | 2017-06-21 08:45 | PDOC.CTH ---
<Yun Mckinnon - Last Filed: 06/21/17 08:43> Cardiology Progress Note - Subjective The pt seen and examined. No overnight events. No cardiac complaints. He cont. having SOB and cough with mild exertion. - Objective Vital Signs Temp Pulse Resp BP Pulse Ox 06/21/17 08:00 97.7 F 68 16 102/63 97 06/21/17 04:00 16 97 Admit Weight 190 lb Weight 173 lb 3.2 oz 06/20/17 06/21/17 06/22/17 06:59 06:59 06:59 Intake Total 1500 1280 Output Total 800 Balance 700 1280 - Physical Examination General/Neuro: alert & oriented x3 Neck: no JVD present Lungs: other: (coarses and diminished at bases; on 4LNC) Heart: RRR Abdomen: soft Extremities: other: (No edema) - Labs Result Diagrams: 06/19/17 04:18 06/19/17 04:18 - Assessment/Plan 1. Acute hypoxic respiratory insufficiency possible due to Amiodarone lung vs atypical pneumonia - Cont. holding Amiodarone. Antibiotics by PCP. 2. Paroxysmal afib - Remains in SR since 06/10/17 according to tele record; Diltiazem is on hold due to dizziness. On ASA and Lovenox. 3. Severe 3V CAD in 2013 (The pt refused to undergo CABG because he was asymptomatic at that time) - stable; on HECTOR, ASA, Lovenox, and Statin; no on BBlocker due to SOB 4. HTN - stable; No complains of dizziness after Diltiazem is on hold. 5. Hyperlipidemia - on Statin MAR reviewed Review of Systems - Review of Systems Constitutional: reports: see HPI EENTM: reports: no symptoms reported Respiratory: reports: see HPI Cardiac (ROS): reports: no symptoms reported ABD/GI: reports: no symptoms reported : reports: no symptoms reported Musculoskeletal: reports: no symptoms reported <Annamaria Franco - Last Filed: 06/21/17 10:42> Cardiology Progress Note - Objective Vital Signs Temp Pulse Resp BP Pulse Ox 06/21/17 08:00 97.7 F 68 16 102/63 97 06/21/17 04:00 16 97 Admit Weight 190 lb Weight 173 lb 3.2 oz 06/20/17 06/21/17 06/22/17 06:59 06:59 06:59 Intake Total 1500 1280 240 Output Total 800 Balance 700 1280 240 - Labs Result Diagrams: 06/19/17 04:18 06/19/17 04:18 - Assessment/Plan Pt. seen and eval. by me. He is still somewhat SOB with exertion. He complained of weak leags. Pedal pulses are decreased but legs are warm. I agree with the A/P by the DIAGNOSTIC RADIOLOGIST. He is still maintaining NSR. Cardizem is on hold. he is at risk of returning to Afib.
--- NOTE | 2017-06-21 11:26 | PDOC.PN ---
- Subjective Encounter Start Date: 06/20/17 Encounter Start Time: 13:00 Subjective: nsg notes rev, mitchel ovn, pt feels very weak and voices frustration -: about how short of breath he gets with minimal ambulation. - Objective Resuscitation Status: Resuscitation Status FULL:Full Resuscitation Vital Signs & Weight: Vital Signs (12 hours) Temp Pulse Resp BP Pulse Ox 06/21/17 08:00 97.7 F 68 16 102/63 97 06/21/17 04:00 16 97 Weight Admit Weight 190 lb Weight 173 lb 3.2 oz I&O: 06/20/17 06/21/17 06/22/17 06:59 06:59 06:59 Intake Total 1500 1280 240 Output Total 800 Balance 700 1280 240 Result Diagrams: 06/19/17 04:18 06/19/17 04:18 Phys Exam - Physical Examination Constitutional: NAD HEENT: PERRLA, sclera anicteric, oral pharynx no lesions Respiratory: no wheezing, no rales, no rhonchi, clear to auscultation bilateral diminished throughout Cardiovascular: RRR, no significant murmur, no rub Gastrointestinal: soft, positive bowel sounds Musculoskeletal: no edema, pulses present Neurological: moves all 4 limbs Psychiatric: normal affect, A&O x 3 Dx/Plan - Plan (1) Acute respiratory failure with hypoxemia Likely 2/2 amiodarone toxicity. Continues to require supplemental O2. Discussed with patient the diagnosis and overall prognosis and expected course of care. Patient is frustrated with the diagnosis (2) CAD (coronary artery disease) stable (3) Hypertension stable (4) Amiodarone pulmonary toxicity suspected continue empiric steroids antitussives are helping with paroxysms of coughing - Plan * Disposition will depend on patient's ADL capability which appears to be primarily limited by respiratory status at this point in time. He will need very close follow up. Diet: cardiac Activity: as danielle Dvt ppx Greater than 30 minutes spent discussing diagnosis and plan of care at bedside with patient and pt healthcare account manager. Review of Systems - Medications/Allergies Allergies/Adverse Reactions: Allergies Allergy/AdvReac Type Severity Reaction Status Date / Time No Known Allergies Allergy Verified 06/10/17 12:55 Medications: Current Medications Acetaminophen (Tylenol) 650 mg PO Q4H PRN PRN Reason: Headache/Fever or Pain Last Admin: 06/21/17 00:29 Dose: 650 mg Al Hydroxide/Mg Hydroxide (Maalox) 15 ml PO Q4H PRN PRN Reason: Heartburn or Indigestion Albuterol Sulfate (Ventolin) 2.5 mg NEB [id number] PRN PRN Reason: Wheezing Albuterol/Ipratropium (Duoneb) 3 ml EZPAP [id number] [facility] Last Admin: 06/21/17 10:02 Dose: Not Given Amlodipine Besylate (Norvasc) 2.5 mg PO DAILY [facility] Last Admin: 06/20/17 08:41 Dose: 2.5 mg Artificial Tears (Tears Naturale) 0 drop EA EYE PRN PRN PRN Reason: Dry Eyes Aspir[facility] ([facility]cotrin) [facility] [place] Last Admin: 06/21/17 08:40 Dose: 81 mg Atorvastatin Calcium (Lipitor) 40 mg PO QAM [facility] Last Admin: 06/21/17 08:41 Dose: 40 mg Benzonatate (Tessalon) 200 mg PO TID [facility] Last Admin: 06/21/17 08:40 Dose: 200 mg Enoxaparin Sodium (Lovenox) 40 mg SC 0900 [facility] Last Admin: 06/21/17 08:39 Dose: 40 mg Famotidine (Pepcid) 20 mg PO BID [facility] Last Admin: 06/21/17 08:40 Dose: 20 mg Guaifenesin/Dextromethorphan (Robitussin Dm) 15 ml PO Q6H PRN PRN Reason: Cough Last Admin: 06/19/17 15:39 Dose: 15 ml Hydralazine HCl (Apresoline) 10 mg SLOW IVP Q4H PRN PRN Reason: Systolic BP > 180 Levofloxacin (Levaquin) 500 mg PO 0600 [facility] Last Admin: 06/21/17 05:31 Dose: 500 mg Lisinopril (Zestril) 10 mg PO QAM [facility] Last Admin: 06/20/17 08:43 Dose: 10 mg Loratadine (Claritin) 10 mg PO DAILYPRN PRN PRN Reason: Sinus Symptoms Last Admin: 06/13/17 20:05 Dose: 10 mg Magnesium Hydroxide (Milk Of Magnesium) 30 ml PO DAILYPRN PRN PRN Reason: Constipation Last Admin: 06/15/17 07:58 Dose: 30 ml Mineral Oil/White Petrolatum (Eucerin Cream) 0 gm TOP BIDPRN PRN PRN Reason: Dry Skin Ondansetron HCl (Zofran) 4 mg IVP Q6H PRN PRN Reason: Nausea/Vomiting Phenol (Chloraseptic [place] 180 Ml Bot) 0 ml PO PRN PRN PRN Reason: Sore Throat Prednisone (Prednisone) 30 mg PO BID [facility] Last Admin: 06/21/17 08:41 Dose: 30 mg Senna (Senokot) 2 tab PO HSPRN PRN PRN Reason: Constipation Sodium Chloride ([place] Nasal [place] 0.65%) 0 ml EA NARE QIDPRN PRN PRN Reason: Nasal Congestion Temazepam (Restoril) 30 mg PO HSPRN PRN PRN Reason: Insomnia Last Admin: 06/21/17 00:29 Dose: 30 mg
--- NOTE | 2017-06-21 15:11 | PRG ---
DATE OF SERVICE: 06/21/2017 SUBJECTIVE: Renee Mesa says he feels better today. Oximetry is in the high 90s. OBJECTIVE: VITAL SIGNS: He is afebrile, heart rate 68, respiratory rate 16, oximetry is 97 on 4 liters of turni ng down to 3 liters. He needs oxygen extensive tubing, so he can ambulate around the room. HEART: Regular rhythm. ABDOMEN: Soft. He still has fine crackles at his bases. IMPRESSION: Amiodarone hypersensitivity versus atypical pneumonia. PLAN: Repeat radiograph will not add anything to our management in my opinion at this point in time. Prednisone dose will be decreased. I have no plans to biopsy him now, so I do not really see how con tinued imaging more, keep him out of rehabilitation to his benefit. In my opinion, he is stable to m ove to some type of rehab environment. There needs to be an effort made to decrease his FiO2 on a da michel basis to the minimal amount required to get him over an O2 sat of 90.
--- NOTE | 2017-06-21 15:49 | PDOC.PN ---
- Subjective Encounter Start Date: 06/21/17 Encounter Start Time: 15:46 Subjective: nsg notes rev, mitchel ovn, pt no new c/o feels overall slightly better -: states he thought someone told him he would have a CXR follow up -: still c/o cough but production is improved - Objective Resuscitation Status: Resuscitation Status FULL:Full Resuscitation Vital Signs & Weight: Vital Signs (12 hours) Temp Pulse Resp BP Pulse Ox 06/21/17 12:00 97.7 F 64 18 99/59 L 97 06/21/17 08:00 97.7 F 68 16 102/63 97 06/21/17 04:00 16 97 Weight Admit Weight 190 lb Weight 173 lb 3.2 oz I&O: 06/20/17 06/21/17 06/22/17 06:59 06:59 06:59 Intake Total 1500 1280 480 Output Total 800 Balance 700 1280 480 Result Diagrams: 06/19/17 04:18 06/19/17 04:18 Phys Exam - Physical Examination Constitutional: NAD seated in hospital chair HEENT: PERRLA, moist MMs, sclera anicteric, oral pharynx no lesions Respiratory: no wheezing, no rales, no rhonchi diminished throughout Cardiovascular: RRR, no significant murmur, no rub Gastrointestinal: soft, non-tender, positive bowel sounds Neurological: moves all 4 limbs Psychiatric: normal affect, A&O x 3 Dx/Plan - Plan (1) Acute respiratory failure with hypoxemia Likely 2/2 amiodarone toxicity. Continues to require supplemental O2. 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 He does not want to return to [place]. Case management consultation requested. Diet: cardiac Activity: as danielle Dvt ppx Review of Systems - Medications/Allergies Allergies/Adverse Reactions: Allergies Allergy/AdvReac Type Severity Reaction Status Date / Time No Known Allergies Allergy Verified 06/10/17 12:55 Medications: Current Medications Acetaminophen (Tylenol) 650 mg PO Q4H PRN PRN Reason: Headache/Fever or Pain Last Admin: 06/21/17 00:29 Dose: 650 mg Al Hydroxide/Mg Hydroxide (Maalox) 15 ml PO Q4H PRN PRN Reason: Heartburn or Indigestion Albuterol Sulfate (Ventolin) 2.5 mg NEB [id number] PRN PRN Reason: Wheezing Albuterol/Ipratropium (Duoneb) 3 ml EZPAP [id number] [facility] Last Admin: 06/21/17 13:36 Dose: Not Given Amlodipine Besylate (Norvasc) 2.5 mg PO DAILY [facility] Last Admin: 06/20/17 08:41 Dose: 2.5 mg Artificial Tears (Tears Naturale) 0 drop EA EYE PRN PRN PRN Reason: Dry Eyes Aspirin (Ecotrin) [facility] [place] Last Admin: 06/21/17 08:40 Dose: 81 mg Atorvastatin Calcium (Lipitor) 40 [facility] [place] [place] Last Admin: 06/21/17 08:41 Dose: 40 mg Benzonatate (Tessalon) 200 mg PO TID [facility] Last Admin: 06/21/17 08:40 Dose: 200 mg Enoxaparin Sodium (Lovenox) 40 mg SC 0900 [facility] Last Admin: 06/21/17 08:39 Dose: 40 mg Famotidine (Pepcid) 20 mg PO BID [facility] Last Admin: 06/21/17 08:40 Dose: 20 mg Guaifenesin/Dextromethorphan (Robitussin Dm) 15 ml PO Q6H PRN PRN Reason: Cough Last Admin: 06/19/17 15:39 Dose: 15 ml Hydralazine HCl (Apresoline) 10 mg SLOW IVP Q4H PRN PRN Reason: Systolic BP > 180 Levofloxacin (Levaquin) 500 mg PO 0600 [facility] Last Admin: 06/21/17 05:31 Dose: 500 mg Lisinopril (Zestril) 10 mg PO QAM [facility] Last Admin: 06/20/17 08:43 Dose: 10 mg Loratadine (Claritin) 10 mg PO DAILYPRN PRN PRN Reason: Sinus Symptoms Last Admin: 06/13/17 20:05 Dose: 10 mg Magnesium Hydroxide (Milk Of Magnesium) 30 ml PO DAILYPRN PRN PRN Reason: Constipation Last Admin: 06/15/17 07:58 Dose: 30 ml Mineral Oil/White Petrolatum (Eucerin Cream) 0 gm TOP BIDPRN PRN PRN Reason: Dry Skin Ondansetron HCl (Zofran) 4 mg IVP Q6H PRN PRN Reason: Nausea/Vomiting Phenol (Chloraseptic [place] 180 Ml Bot) 0 ml PO PRN PRN PRN Reason: Sore Throat Prednisone (Prednisone) 30 mg PO QAM- [facility]ADAN Senna (Senokot) 2 tab PO HSPRN PRN PRN Reason: Constipation Sodium Chloride ([place] Nasal [place] 0.65%) 0 ml EA NARE QIDPRN PRN PRN Reason: Nasal Congestion Temazepam (Restoril) 30 mg PO HSPRN PRN PRN Reason: Insomnia Last Admin: 06/21/17 00:29 Dose: 30 mg
[2017-06-21] MEDS: Amlodipine 5 MG TAB PO SCH (16:15)
[2017-06-21] MEDS: Lisinopril 10 MG TAB PO SCH (16:15)
[2017-06-22] MEDS: Temazepam 15 MG CAP PO PRN (00:33)
[2017-06-22] MEDS: Acetaminophen 325 MG TAB PO PRN (00:33)
[2017-06-22] MEDS: Famotidine 20 MG TAB PO SCH (07:43)
[2017-06-22] MEDS: Enoxaparin Sodium 40 MG/0.4 ML SYRINGE SC SCH (07:43)
[2017-06-22] MEDS: Benzonatate 100 MG CAP PO SCH ×2 (07:43→14:03)
[2017-06-22] MEDS: Atorvastatin Calcium 40 MG TAB PO SCH (07:44)
[2017-06-22] MEDS: Aspirin 81 mg Enteric Coated Tablet PO SCH (07:44)
[2017-06-22] MEDS: Lisinopril 10 MG TAB PO SCH (07:46)
[2017-06-22] MEDS: Amlodipine 5 MG TAB PO SCH (07:46)
[2017-06-22] MEDS ORDERED: predniSONE 20 MG TAB PO SCH (08:00)
--- NOTE | 2017-06-22 08:34 | PDOC.CTH ---
Cardiology Progress Note - Subjective The pt seen and examined. No overnight events. No cardiac complaints. He is on 2LNC which was 3.5 yesterday, without any distress. Cont. coughing, but much less per the pt. - Objective Vital Signs Temp Pulse Resp BP BP BP Pulse Ox 06/22/17 07:46 62 113/67 06/22/17 07:42 98.4 F 60 16 115/64 95 06/22/17 07:15 97.9 F 62 113/67 93 L Admit Weight 190 lb Weight 173 lb 3.2 oz 06/21/17 06/22/17 06/23/17 06:59 06:59 06:59 Intake Total 1280 1620 Output Total 525 Balance 1280 1095 - Physical Examination General/Neuro: alert & oriented x3 Neck: no JVD present Lungs: other: (coarses and diminished at bases) Heart: RRR Abdomen: soft Extremities: other: (No edema) - Labs Result Diagrams: 06/19/17 04:18 06/19/17 04:18 - Assessment/Plan 1. Acute hypoxic respiratory insufficiency possible due to Amiodarone lung vs atypical pneumonia - Cont. holding Amiodarone. Antibiotics by PCP. 2. Paroxysmal afib - Remains in SR since 06/10/17 according to tele record; Diltiazem is on hold due to dizziness. On ASA and Lovenox. Will change ASA from 81mg to 325mg at discharge. 3. Severe 3V CAD in 2013 (The pt refused to undergo CABG because he was asymptomatic at that time) - stable; on HECTOR, ASA, Lovenox, and Statin; no on BBlocker due to SOB 4. HTN - stable; No complains of dizziness after Diltiazem is on hold. 5. Hyperlipidemia - on Statin MAR reviewed * From Cardiac standpoint, the pt is stable to tx to rehab. Will change ASA from 81mg to 325mg at discharge. * The pt will f/u with Dr Franco' office within 2-4 wks after he is discharged from Rehab. Review of Systems - Review of Systems Constitutional: reports: no symptoms reported EENTM: reports: no symptoms reported Respiratory: reports: see HPI Cardiac (ROS): reports: no symptoms reported ABD/GI: reports: no symptoms reported : reports: no symptoms reported
--- NOTE | 2017-06-22 12:54 | PRG ---
DATE OF SERVICE: 06/22/2017 Mr. Mesa is doing well. PHYSICAL EXAMINATION: VITAL SIGNS: He is afebrile, heart rate 67, respiratory 20, oximetry is 92 and liter and a half. Bl ood pressure is 90/56. LUNGS: He still has fine crackles at his bases. HEART: Regular rhythm. ABDOMEN: Abdomen is soft. IMPRESSION: Amiodarone hypersensitivity versus an atypical pneumonia. His gas exchange is improving. He was transiently on high flow facemask early on in this admission. In my opinion, he is stable to go to rehab when and if he is approved to go to rehab.
[2017-06-22 13:57] VITALS: BMI 25.5
[2017-06-22 17:33] VITALS: BP 123/59; TEMP 97.8
--- NOTE | 2017-06-24 13:23 | PQF ---
[facility] [id number] [facility] [id number] CLINICAL DOCUMENTATION CLARIFICATION FORM: POST DISCHARGE Addendum to original discharge summary date: ____ Late entry note date: __ DATE: 06/24/2017 ATTN: Please exercise your independent, professional judgment in responding to the clarification form. Clinical indicators are provided on the bottom of this form for your review Please check appropriate box(s): [ ] Aspiration Pneumonia [ ] Aspiration Bronchitis [ ] Empirically treating Gram Negative Pneumonia [ ] Empirically treating Anaerobic Pneumonia [ ] Pneumonia secondary to (specify organism / underlying disease) [ ] Simple Pneumonia (community acquired - nosocomial) [ ] Bronchopneumonia [ ] Pneumonia of unknown etiology [ ] Other diagnosis [ ] Unable to determine In addition, please specify: Present on Admission (POA): [ ] Yes [ ] No [ ] Unable to determine For continuity of documentation, please document condition throughout progress notes and discharge summary. Thank You. CLINICAL INDICATORS - SIGNS / SYMPTOMS / LABS Fever, Chest pain, expectoration Elevated WBC x Current aspiration or vomiting Current NG tube Decreased LOC or altered mental status Dysphagia / + swallow study / impaired gag reflex Purulent sputum/ positive culture results x SOB, Hypoxia, ABGs, O2 sats x Pulmonary infiltrate / CXR results Look for type of Antibiotics MTDD
--- NOTE | 2017-06-28 12:03 | PQF ---
[facility] [id number] [facility] [id number] CLINICAL DOCUMENTATION CLARIFICATION FORM: POST DISCHARGE Addendum to original discharge summary date: ____ Late entry note date: __ DATE: 06/28/2017 ATTN: Please exercise your independent, professional judgment in responding to the clarification form. Clinical indicators are provided on the bottom of this form for your review Please check appropriate box(s): [ ] Aspiration Pneumonia [ ] Aspiration Bronchitis [ ] Empirically treating Gram Negative Pneumonia [ ] Empirically treating Anaerobic Pneumonia [ ] Pneumonia secondary to (specify organism / underlying disease) [ ] Simple Pneumonia (community acquired - nosocomial) [ ] Bronchopneumonia [ ] Pneumonia of unknown etiology [ ] Other diagnosis [ ] Unable to determine In addition, please specify: Present on Admission (POA): [ ] Yes [ ] No [ ] Unable to determine For continuity of documentation, please document condition throughout progress notes and discharge summary. Thank You. CLINICAL INDICATORS - SIGNS / SYMPTOMS / LABS x Fever, Chest pain, expectoration x Elevated WBC x Current aspiration or vomiting Current NG tube Decreased LOC or altered mental status Dysphagia / + swallow study / impaired gag reflex Purulent sputum/ positive culture results SOB, Hypoxia, ABGs, O2 sats Pulmonary infiltrate / CXR results Look for type of Antibiotics MTDD
== END 2017-06-22 19:02 | DRG 193 ==
LOC: SDC 05:40 → 2NO 12:31 → T4-B 06-14 13:43
PROVIDERS: ADMIT Internal Medicine; ATTEND Internal Medicine
DX: J18.9 Pneumonia, unspecified organism (principal); J96.01 Acute respiratory failure with hypoxia; Z79.899 Other long term (current) drug therapy; Z79.82 Long term (current) use of aspirin; E78.5 Hyperlipidemia, unspecified; I10 Essential (primary) hypertension; I48.0 Paroxysmal atrial fibrillation; T46.2X5A Adverse effect of other antidysrhythmic drugs, initial encounter; D64.9 Anemia, unspecified; D72.829 Elevated white blood cell count, unspecified; E66.9 Obesity, unspecified; Z90.81 Acquired absence of spleen; I25.10 Atherosclerotic heart disease of native coronary artery without angina pectoris; Z90.411 Acquired partial absence of pancreas; J69.0 Pneumonitis due to inhalation of food and vomit
CPT/HCPCS: 36415; 36416; 71045; 71260; 80048; 80076; 81001; 82550; 83880; 85007; 85025; 85027; 87040; 93005; 93010; 93306; 94640; A4216; G8978-GP-CK; G8979-GP-CI; J0131; J0456; J0696; J1650; J1940; J2920; J3010; J7050; J7506; J7620

== ENCOUNTER 2017-07-26 10:46 | Outpatient (CLI) | payer MEDICARE ==
--- NOTE | 2017-07-26 13:05 | RAD ---
TWO VIEWS CHEST: Date: 07-26-17 Comparison: 06-16-17 History: Shortness of breath, dyspnea. FINDINGS: Increased linear interstitial density noted throughout both lungs with a left basilar predominance. A eration within both lungs has improved since the 07-16-17 exam. There is no pneumothorax noted. There is blunting of the costophrenic angle on the left suggesting small volume pleural fluid and/or pleura l thickening. Heart and mediastinal contours appear grossly unremarkable. IMPRESSION: Coarse linear interstitial densities are noted bilaterally, most conspicuous in the left base. These findings may all be chronic in nature. Aeration has improved since the prior radiograph. POS: [facility]
== END 2017-07-26 10:47 | disposition home or self-care (01) ==
LOC: RAD 10:46
PROVIDERS: ATTEND Internal Medicine Critical Care Medicine
DX: R06.00 Dyspnea, unspecified (principal); R91.8 Other nonspecific abnormal finding of lung field
CPT/HCPCS: 71046

== ENCOUNTER 2017-11-23 09:42 | Outpatient (CLI) | payer MEDICARE ==
--- NOTE | 2017-11-23 10:27 | RAD ---
PA AND LATERAL CHEST X-RAY: 11/23/2017 HISTORY: Dyspnea. COMPARISON: 07/26/2017 FINDINGS: The cardiac silhouette and pulmonary vasculature are within normal limits. Again noted are the incre ased linear densities at the lateral left lung base with associated mild pleural thickening, likely r elated to chronic lung changes and probable scarring. Minimal linear densities are also again seen a t the right lung base, probably related to mild scarring. The lungs are otherwise clear. No new foc al area of consolidation or pleural fluid is seen. Vascular calcification is seen in the thoracic ao rta. Degenerative changes are noted in the spine. Surgical clips again overly the epigastric region . No other interval change. IMPRESSION: 1. Chronic lung changes, left lung base, with areas of scarring and pleural thickening. 2. Probable minimal areas of scarring at the right lung base. 3. The areas of linear and interstitial densities in the right upper lung zone do appear improved fr om the prior study, aside from a minimal linear area of residual scarring present. 4. No acute cardiopulmonary process. POS: [facility]
== END 2017-11-23 09:43 | disposition home or self-care (01) ==
LOC: RAD 09:42
PROVIDERS: ATTEND Internal Medicine Critical Care Medicine
DX: R06.00 Dyspnea, unspecified (principal); R91.8 Other nonspecific abnormal finding of lung field; J92.9 Pleural plaque without asbestos
CPT/HCPCS: 71046

== ENCOUNTER 2019-01-02 12:04 | Outpatient (CLI) | payer MEDICARE ==
--- NOTE | 2019-01-02 12:27 | RAD ---
XR Chest Pa Lat @ [facility] HISTORY: Dyspnea COMPARISON: 11/23/2017 study. FINDINGS: Heart size is within normal limits. Scarring in the left lung base is stable. Lungs are yaima ar of infiltrates. IMPRESSION: Stable exam.
== END 2019-01-02 12:05 | disposition home or self-care (01) ==
LOC: RAD 12:04
PROVIDERS: ATTEND Internal Medicine Critical Care Medicine
DX: R06.00 Dyspnea, unspecified (principal)
CPT/HCPCS: 71046

== ENCOUNTER 2019-06-17 22:02 | Inpatient (IN) | payer MEDICARE ==
--- NOTE | 2019-06-17 22:40 | RAD ---
CHEST TWO VIEWS: History: Stemi Comparison: 01-02-19 FINDINGS: Similar appearance of the left lower lobe scarring and peripheral pleural thickening and costophrenic sulcus and blunting. Old right sided rib fractures. No confluent airspace consolidation, pneumothora x or effusion. Heart size mildly enlarged. Coronary vascular stents. IMPRESSION: Similar examination of the chest with left lower lobe scarring and calcific sulcus blunting. No acute intrathoracic abnormality. POS: [facility]
[2019-06-17 23:08] LABS: #Basophils 0.1 thou/uL (0.0-0.2); #Eosinphils 0.1 thou/uL (0.0-0.7); #Lymphocytes 4.7 thou/uL (1.20-3.40); #Monocytes 2.4 thou/uL (0.11-0.59); %Basophils 0.5 % (0.0-1.0); %Eosinophils 0.6 % (0.0-10.0); %Lymphocytes 27.2 % (21.0-51.0); %Monocytes 13.8 % (0.0-10.0); %Neutrophils 57.9 % (42.0-75.0); Hemoglobin 15.1 g/dL (14.0-18.0); Mean Corpuscular Volume 96.8 fL (78.0-98.0); Mean Platelet Volume 7.6 fL (7.4-10.4); Platelet Count 346 thou/uL (130-400); RBC Distribution Width 12.9 % (11.5-14.5); Red Blood Cell (RBC) Count 5.04 mill/uL (4.70-6.10); White Blood Cell (WBC) Count 17.3 thou/uL (4.8-10.8)
[2019-06-17 23:28] LABS: ALT (SGPT) 13 U/L (8-55); AST (SGOT) 27 U/L (5-34); Albumin 3.7 g/dL (3.4-4.8); Alkaline Phosphatase 135 U/L (40-110); Anion Gap 19 mmol/L (10-20); BUN (Urea Nitrogen) 13 mg/dL (8.4-25.7); Bilirubin, Total 1.1 mg/dL (0.2-1.2); CK (CPK) 113 U/L (30-200); Calc. Creatinine Clearance 0 mL/min (70-130); Calcium 9.4 mg/dL (7.8-10.44); Carbon Dioxide 26 mmol/L (23-31); Chloride 97 mmol/L (98-107); Estimated GFR-MDRD 75; Globulin 3.2 g/dL (2.4-3.5); Glucose 106 mg/dL (83-110); Protein, Total 6.9 g/dL (5.8-8.1); Sodium 138 mmol/L (136-145)
[2019-06-17] MEDS ORDERED: Enoxaparin Sodium 80 MG/0.8 ML SYRINGE ONE (23:35)
[2019-06-17] MEDS ORDERED: Nitroglycerin 2% Ointment 1 INCH/1 GM Packet ONE (23:43)
[2019-06-18] LABS: CKMB 6.2 ng/mL (0-6.6)
[2019-06-18] MEDS ORDERED: Heparin 25,000 units/D5W 500 ML IVPB SCH (01:00)
[2019-06-18] MEDS ORDERED: Morphine 2 MG/ML SYRINGE SLOW IVP PRN (01:00)
[2019-06-18] MEDS ORDERED: Heparin 10,000 UNITS/ 10 ML VIAL SLOW IVP SCH (01:00)
[2019-06-18] MEDS ORDERED: Nitroglycerin 0.4 MG TAB (25 Tab Bottle) SL PRN (01:00)
[2019-06-18] MEDS ORDERED: HYDROcodone/Acetaminophen 5/325 mg Tablet PO PRN ×2 (01:00)
--- NOTE | 2019-06-18 01:19 | PDOC.HHP ---
Hospitalist HPI - History of Present Illness sob History of Present Illness: Case of an 74y/o male with pmhx of htn hld and cad who comes to hospital due to sob. patient referes he was on his usual state of health until today when after waking up he felt sob. ems were called and pt [facility] and later transfer to this institution. patient there was found to have elevated troponin at 0.3 for which he was transfer here due to nstemi. patient denies any chest pain, palpitations diaphoresis fever chils or cough. he does refers recent placement of 2 stent at the beginning of the year. Hospitalist ROS - Review of Systems All other systems reviewed; all pertinent +/- noted in HPI/Subj Hospitalist History - Past Medical History Cardiac: reports: CAD, HTN, Hyperlipidemia - Past Surgical History Other Surgical History: hernia repair splenectomy lumbar laminectomy - Family History Family History: reports: cardiac disorder, cerebrovascular accident, hyperlipidemia, hypertension - Social History Smoking Status: Former smoker Alcohol: reports: None Drugs: reports: none Living Situation: With Family Activity level: independent ambulation - Exam General Appearance: NAD, awake alert Eye: PERRL, anicteric sclera ENT: normocephalic atraumatic, no oropharyngeal lesions Neck: supple, symmetric, no JVD Heart: RRR, no murmur, no gallops Respiratory: CTAB, no wheezes, no rales Gastrointestinal: soft, non-tender, non-distended Extremities: no cyanosis, no clubbing, no edema Skin: normal turgor, no lesions, no rashes Neurological: cranial nerve grossly intact, normal sensation to touch, no weakness Musculoskeletal: normal tone, normal strength, no muscle wasting Psychiatric: normal affect, normal behavior, A&O x 3 Hospitalist Results - Labs Result Diagrams: 06/17/19 22:59 06/17/19 22:59 Lab results: WBC 17.3 thou/uL (4.8-10.8) H 06/17/19 22:59 Hgb 15.1 g/dL (14.0-18.0) 06/17/19 22:59 Hct 48.8 % (42.0-52.0) 06/17/19 22:59 MCV 96.8 fL (78.0-98.0) 06/17/19 22:59 Plt Count 346 thou/uL (130-400) 06/17/19 22:59 Neutrophils % 57.9 % (42.0-75.0) 06/17/19 22:59 Sodium 138 mmol/L (136-145) 06/17/19 22:59 Potassium 4.0 mmol/L (3.5-5.1) 06/17/19 22:59 Chloride 97 mmol/L (98-107) L 06/17/19 22:59 Carbon Dioxide 26 mmol/L (23-31) 06/17/19 22:59 BUN 13 mg/dL (8.4-25.7) 06/17/19 22:59 Creatinine 0.97 mg/dL (0.7-1.3) 06/17/19 22:59 Glucose 106 mg/dL (83-110) 06/17/19 22:59 Lactic Acid 2.1 mmol/L (0.5-2.2) 06/17/19 22:59 Calcium 9.4 mg/dL (7.8-10.44) 06/17/19 22:59 Total Bilirubin 1.1 mg/dL (0.2-1.2) 06/17/19 22:59 AST 27 U/L (5-34) 06/17/19 22:59 ALT 13 U/L (8-55) 06/17/19 22:59 Alkaline Phosphatase 135 U/L (40-110) H 06/17/19 22:59 Creatine Kinase 113 U/L (30-200) 06/17/19 22:59 CK-MB (CK-2) 6.2 ng/mL (0-6.6) 06/17/19 22:59 Troponin I 0.485 ng/mL (< 0.028) H* 06/17/19 22:59 B-Natriuretic Peptide 871.9 pg/mL (0-100) H 06/17/19 22:59 Serum Total Protein 6.9 g/dL (5.8-8.1) 06/17/19 22:59 Albumin 3.7 g/dL (3.4-4.8) 06/17/19 22:59 - EKG Interpretation EK lead EKG interpreted by Emergency Department Physician at time of study, 12 lead EKG shows, sinus tachycardia, Rate (beats per minute): 102, with no ectopics, Interpretation:, Conduction with, complete right bundle branch block, ST segments normal, T waves normal, [place] normal, Other findings include:, prolonged QTc, Clinical impression:, non-specific EKG. LAB INTERPRETATION Julian Jun 17, 2019 22:28 MIKE Jenkins Tara - Radiology Interpretation Chest x-ray Status: report reviewed by me (no acute intrathroracix pathologies) Hospitalist H&P A/P - Problem (1) NSTEMI (non-ST elevated myocardial infarction) Code(s): I21.4 - NON-ST ELEVATION (NSTEMI) MYOCARDIAL INFARCTION Status: Acute (2) Leukocytosis Code(s): D72.829 - ELEVATED WHITE BLOOD CELL COUNT, UNSPECIFIED Status: Acute (3) CAD (coronary artery disease) Code(s): I25.10 - ATHSCL HEART DISEASE OF [place] CORONARY ARTERY W/O ANG PCTRS Status: Acute Qualifiers: Coronary Disease-Associated Artery/Lesion type: [place] artery [place] vs. transplanted heart: [place] heart Associated angina: without angina Qualified Code(s): I25.10 - Atherosclerotic heart disease of [place] coronary artery without angina pectoris (4) Dyslipidemia Code(s): E78.5 - HYPERLIPIDEMIA, UNSPECIFIED Status: Chronic (5) Hypertension Code(s): I10 - ESSENTIAL (PRIMARY) HYPERTENSION Status: Chronic Qualifiers: Hypertension type: essential hypertension Qualified Code(s): I10 - Essential (primary) hypertension - Plan Plan: nstemi - patiente with hx of cad w recent stent placement x2. present w sob and uptrending troponin. ekg w/o acute ischemic st changes, highest tropinin at 0.4 will contrinue to order to follow trend, cxr wnl. will start cad medical managment w hep drip acei betablocker statin and antiplatelers. 2d echo snet and aircraft instrument mechanic was consulted. patient also with elevated bnp in the 800s, receive lasix at the ed, cxr w/o vascular congestion and no signs of fluid overload at pe with no leg edema or jvd, 2d echo was sent f/u results. 02 supplementation will be provided leukocytosis - patient will 17 wbc, no clear source of infection identified, cxr clear pt afebrile and w/o dysuria diarrhea or cough, no skin lesions. will send u/a u/c procalcitonin and repeat cbc in the morning. will cover prophylactically w rocephin hyperlipidemia - continue statin htn - continue home meds, adjust as necessary
[2019-06-18 02:18] LABS: #Basophils 0.1 thou/uL (0.0-0.2); #Eosinphils 0.2 thou/uL (0.0-0.7); #Lymphocytes 5.8 thou/uL (1.20-3.40); #Monocytes 2.2 thou/uL (0.11-0.59); #Neutrophils 9.5 thou/uL (1.40-6.50); %Basophils 0.5 % (0.0-1.0); %Eosinophils 0.9 % (0.0-10.0); %Lymphocytes 32.8 % (21.0-51.0); %Monocytes 12.4 % (0.0-10.0); %Neutrophils 53.4 % (42.0-75.0); Hemoglobin 15.6 g/dL (14.0-18.0); Mean Corpuscular HGB CONC 33.1 g/dL (32.0-36.0); Mean Corpuscular Hemoglobin 31.9 pg (27.0-31.0); Mean Corpuscular Volume 96.5 fL (78.0-98.0); Mean Platelet Volume 7.7 fL (7.4-10.4); Platelet Count 331 thou/uL (130-400); RBC Distribution Width 12.8 % (11.5-14.5); Red Blood Cell (RBC) Count 4.88 mill/uL (4.70-6.10); White Blood Cell (WBC) Count 17.7 thou/uL (4.8-10.8)
[2019-06-18 02:19] LABS: Hemoglobin 15.4 g/dL (14.0-18.0); Platelet Count 326 thou/uL (130-400)
[2019-06-18 02:25] LABS: PTT 32.1 SEC (22.9-36.1)
[2019-06-18 02:26] LABS: D-Dimer Test 0.59 *mcg/mL (0.27-0.43)
[2019-06-18] MEDS ORDERED: Ondansetron ODT 4 MG TAB SL PRN (02:36)
[2019-06-18] MEDS ORDERED: Ondansetron PF 4 MG/2 ML Vial IVP PRN (02:36)
[2019-06-18 02:46] LABS: Troponin I 0.532 ng/mL (< 0.028)
[2019-06-18] MEDS ORDERED: Ipratropium Bromide 2.5 ml Neb NEB PRN (02:50)
[2019-06-18] MEDS ORDERED: diphenhydrAMINE 25 MG CAP PO SCH (03:00)
[2019-06-18] MEDS: cefTRIAXone\\ROCEPHIN 1 GM in Sodium Chloride 0.9% 100 ML IVPB SCH (03:05)
[2019-06-18 03:07] LABS: ALT (SGPT) 13 U/L (8-55); AST (SGOT) 29 U/L (5-34); Albumin 3.8 g/dL (3.4-4.8); Alkaline Phosphatase 127 U/L (40-110); Anion Gap 20 mmol/L (10-20); BUN (Urea Nitrogen) 14 mg/dL (8.4-25.7); Bilirubin, Total 1.4 mg/dL (0.2-1.2); Calc. Creatinine Clearance 0 mL/min (70-130); Calcium 9.5 mg/dL (7.8-10.44); Carbon Dioxide 25 mmol/L (23-31); Chloride 97 mmol/L (98-107); Estimated GFR-MDRD 69; Globulin 3.2 g/dL (2.4-3.5); Glucose 104 mg/dL (83-110); Sodium 138 mmol/L (136-145)
[2019-06-18 03:39] LABS: Hemoglobin A1c 5.3 % (4.0-6.0)
[2019-06-18 04:59] VITALS: BMI 24.9
[2019-06-18 05:45] LABS: Troponin I 0.567 ng/mL (< 0.028)
[2019-06-18 06:25] LABS: Bacteria/HPF None Seen HPF (None Seen); Bilirubin Negative (Negative); Blood, Urine Negative (Negative); Clarity Clear (Clear); Glucose, Urine (Dipstick) Normal (Negative); Leukocyte Negative Leu/uL (Negative); Nitrite Negative (Negative); Protein, Urine (Dipstick) 10 mg/dL (Neg-Trace); RBC/HPF 0-3 HPF (0-3); Squamous Epithelial 0-3 HPF (0-3); Urobilinogen Normal mg/dL (Less than 2); WBC/HPF 0-3 HPF (0-3)
[2019-06-18] MEDS: Atorvastatin Calcium 40 MG TAB PO SCH (08:08)
[2019-06-18] MEDS: Lisinopril 10 MG TAB PO SCH (08:08)
[2019-06-18] MEDS: Aspirin 325 mg Enteric Coated Tablet PO SCH (08:08)
[2019-06-18] MEDS: Acetaminophen 325 MG TAB PO PRN ×2 (11:41→22:18)
[2019-06-18 13:32] LABS: Troponin I 0.571 ng/mL (< 0.028)
[2019-06-18 17:47] LABS: Digoxin 1.76 ng/mL (0.8-2.0)
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
[2019-06-19] MEDS ORDERED: diphenhydrAMINE 25 MG CAP PO SCH (00:45)
[2019-06-19] MEDS: cefTRIAXone\\ROCEPHIN 1 GM in Sodium Chloride 0.9% 100 ML IVPB SCH (02:23)
[2019-06-19 05:02] LABS: Cardiac Risk 4.4 (Less than 4.5)
[2019-06-19] MEDS: Lisinopril 10 MG TAB PO SCH (08:58)
[2019-06-19] MEDS: Aspirin 325 mg Enteric Coated Tablet PO SCH (08:58)
[2019-06-19] MEDS: Atorvastatin Calcium 40 MG TAB PO SCH (08:58)
[2019-06-19] MEDS ORDERED: Iopamidol 370 76% 50 ML VIAL FS ONE (09:58)
[2019-06-19 10:27] LABS: Critical Call Chem Troponin I RESULT DECREASING; Troponin I 0.502 ng/mL (< 0.028)
[2019-06-19] MEDS ORDERED: Gentamicin 80 MG/2 ML VIAL ONE (12:01)
[2019-06-19] MEDS ORDERED: CEFAZOLIN 1 GM VIAL ONE (12:01)
[2019-06-19] MEDS ORDERED: Midazolam HCl 2 mg/2 ml Vial ONE (12:50)
[2019-06-19] MEDS ORDERED: Lidocaine 1% (PF) 30 ML VIAL ONE (13:01)
--- NOTE | 2019-06-19 13:44 | PDOC.CPN ---
- Subjective Date: 06/19/19 Time: 12:30 - Review of Systems General: reports: fever/chills Respiratory: reports: cough, congestion Cardiovascular: reports: chest pain, palpitation, edema Gastrointestinal: reports: nausea, vomiting Musculoskeletal: reports: pain Neurological: reports: syncope, seizure - Objective Allergies/Adverse Reactions: Allergies Allergy/AdvReac Type Severity Reaction Status Date / Time amiodarone Allergy Verified 06/18/19 04:57 Visit Medications: Current Medications Acetaminophen (Tylenol) 650 mg PO Q4H PRN PRN Reason: Headache/Fever/Mild Pain (1-3) Last Admin: 06/18/19 22:18 Dose: 650 mg Hydrocodone Bitart/Acetaminophen ([place] 5/325) 1 tab PO Q4H PRN PRN Reason: Moderate Pain (4-6) Hydrocodone Bitart/Acetaminophen ([place] 5/325) 2 tab PO Q4H PRN PRN Reason: Severe Pain (7-10) Aspirin (Ecotrin) 325 mg PO DAILY [facility] Last Admin: 06/19/19 08:58 Dose: 325 mg Atorvastatin Calcium (Lipitor) 40 mg PO QAM [facility] Last Admin: 06/19/19 08:58 Dose: 40 mg Bumetanide (Bumex) 2 mg PO DAILY [facility] Clopidogrel Bisulfate (Plavix) 75 mg PO DAILY [facility] Ceftriaxone Sodium 1 gm/ (Sodium Chloride) 100 mls @ 200 mls/hr IVPB Q24HR [facility] Last Admin: 06/19/19 02:23 Dose: 100 mls Ipratropium [place] (Atrovent) 2.5 ml NEB [id number] PRN PRN Reason: SOB &/or Wheezing Last Admin: 06/18/19 04:05 Dose: 2.5 ml Lisinopril (Zestril) 10 mg PO QAM [facility] Last Admin: 06/19/19 08:58 Dose: 10 mg Metoprolol Succinate (Toprol Xl) 50 mg PO DAILY [facility] Morphine Sulfate (Morphine) 2 mg SLOW IVP Q5MIN PRN PRN Reason: Chest Pain Nitroglycerin (Nitrostat) 0.4 mg SL Q5MIN PRN PRN Reason: Chest Pain Sodium Chloride (Flush - Normal Saline) 10 ml IVF Q12HR [facility] Last Admin: 06/19/19 08:54 Dose: Not Given Sodium Chloride (Flush - Normal Saline) 10 ml IVF PRN PRN PRN Reason: Saline Flush Sodium Chloride (Flush - Normal Saline) 10 ml IVF Q12HR [facility] Last Admin: 06/19/19 08:59 Dose: 10 ml Sodium Chloride (Flush - Normal Saline) 10 ml IVF PRN PRN PRN Reason: Saline Flush Vital Signs & Weight: Vital Signs Temp Pulse Resp BP BP Pulse Ox 06/19/19 08:58 108/56 L 06/19/19 08:50 97.5 F L 45 L 16 108/56 L 99 06/19/19 03:50 98.2 F 87 18 108/59 L 100 Weight 169 lb - Quality Measures Condition: Coronary Artery Disease CV meds: Beta Sven: Yes, Statin: Yes, ASA: Yes - Physical Exam HEENT: normocephaly Neck: supple neck, no JVD/HJR, no lymphadenopathy Cardiac: bradycardia Lungs: clear to auscultation Neuro: grossly intact Abdomen: unremarkable Extremities: no cyanosis, no clubbing, no edema Musculoskeletal: normal range of motion - Labs Result Diagrams: 06/18/19 01:40 06/18/19 01:40 Troponin/CKMB CK-MB (CK-2) 6.2 ng/mL (0-6.6) 06/17/19 22:59 Troponin I 0.502 ng/mL (< 0.028) H* 06/19/19 09:51 - Assessment/Plan Assessment/Plan: 1. CHB: pacemaker today. 2. CAD. Previous stent at [facility] : 2 stents to proximal / mid. LAD. 3.0 and 3.5 mm synergy drug eluting stents. If the pt. continues to have throat discomfort he may need a repeat cardiac cath. Per the [facility] tapper balance wheel screw hole, he has an RCA-100% occluded ( this is old), and a L-circumflex: 30%. 3. Dyslipidemia: continue statins. 4. HTN: under reasonable control. Continue Metoprolol but increase dose. 5. Atrial arrythmias. Increase betablockers.
--- NOTE | 2019-06-19 14:33 | PQF ---
CLINICAL DOCUMENTATION IMPROVEMENT CLARIFICATION FORM: ICD-10 Updated PLEASE DO AN ADDENDUM TO THE PROGRESS NOTE WITH ANY DOCUMENTATION UPDATES OR ADDITIONS AND CARRY THROUGH TO DC SUMMARY. THANK YOU. DATE: 06/19/19 ATTN: DR. OCONNOR Please exercise your independent, professional judgment in responding to the clarification form. Clinical indicators are provided on the bottom of this form for your review Please check appropriate box(s) to clarify if the following diagnosis has been ruled in or ruled out: NSTEMI [ ] Ruled in diagnosis [ ] Continue to treat [ ] Resolved [ ] Ruled out diagnosis [ ] Improving [ ] Cannot rule out diagnosis [ ] Other diagnosis [ > ] Unable to determine(Need clarification from [employer] on whether NSTEMI is present. Follow hospital course) In addition, please specify: Present on Admission (POA): [ ] Yes [ ] No [ ] Unable to determine For continuity of documentation, please document condition throughout progress notes and discharge summary. Thank You. CLINICAL INDICATORS - SIGNS / SYMPTOMS / LABS / RESULTS AND LOCATION IN MR H&P: "NSTEMI" PN (CARDIOLOGY) 06/18: "SHOWS EVIDENCE OF AN OLD INFERIOR MYOCARDIAL INFARCTION" TROPONINS 06/17: 0.567 / 0.571 / 0.502 RISKS: CAD (H&P) RI (H&P) AFIB (H&P) TREATMENT: CARDIOLOGY CONSULT 06/18 [employer] TELEMETRY MONITORING SAP Manager Of Financial Crystal Reports Winform Viewer (This form is maintained as a part of the permanent medical record) 2014 [employer]. All Rights Reserved [email or web address] [facility]
[2019-06-19] MEDS ORDERED: Acetaminophen/Codeine 30-300mg Tablet PO PRN (16:26)
--- NOTE | 2019-06-19 16:36 | PDOC.HOSPP ---
- Subjective Encounter Date: 06/19/19 Subjective: Denies chest pain or SOB this morning. - Objective Vital Signs & Weight: Vital Signs (12 hours) Temp Pulse Resp BP BP Pulse Ox 06/19/19 15:47 97.2 F L 79 16 154/74 H 99 06/19/19 08:58 108/56 L 06/19/19 08:50 97.5 F L 45 L 16 108/56 L 99 Weight Weight 169 lb I&O: 06/18/19 06/19/19 06/20/19 06:59 06:59 06:59 Intake Total 291.6 680 Output Total 500 Balance 291.6 180 Result Diagrams: 06/18/19 01:40 06/18/19 01:40 Hospitalist ROS - Medication Medications: Active Medications Generic Name Dose Route Start Last Admin Trade Name Freq PRN Reason Stop Dose Admin Acetaminophen 650 mg 06/18/19 01:00 06/18/19 22:18 Tylenol PO 650 mg Q4H PRN Administration Headache/Fever/Mild Pain (1-3) Aspirin 325 mg 06/18/19 09:00 06/19/19 08:58 Ecotrin PO 325 mg DAILY MADAN Administration Atorvastatin Calcium 40 mg 06/18/19 09:00 06/19/19 08:58 Lipitor PO 40 mg QAM MADAN Administration Ceftriaxone Sodium 1 gm/ 100 mls @ 200 mls/hr 06/18/19 02:00 06/19/19 02:23 Sodium Chloride IVPB 100 mls Q24HR MADAN Administration Ipratropium [place] 2.5 ml 06/18/19 02:50 06/18/19 04:05 Atrovent NEB 2.5 ml [id number] PRN Administration SOB &/or Wheezing Lisinopril 10 mg 06/18/19 09:00 06/19/19 08:58 Zestril PO 10 mg QAM MADAN Administration Sodium Chloride 10 ml 06/18/19 09:00 06/19/19 08:54 Flush - Normal Saline IVF Not Given Q12HR MADAN Sodium Chloride 10 ml 06/18/19 21:00 06/19/19 08:59 Flush - Normal Saline IVF 10 ml Q12HR MADAN Administration - Exam General Appearance: awake alert ENT: normocephalic atraumatic Neck: supple Heart - other findings: Bradycardia Respiratory: no tachypnea, normal percussion Gastrointestinal: soft, non-tender, non-distended, normal bowel sounds Neurological: cranial nerve grossly intact, no focal deficits Hosp A/P (1) CHB (complete heart block) Code(s): I44.2 - ATRIOVENTRICULAR BLOCK, COMPLETE Status: Acute (2) CAD (coronary artery disease) Code(s): I25.10 - ATHSCL HEART DISEASE OF [place] CORONARY ARTERY W/O ANG PCTRS Status: Acute Qualifiers: Coronary Disease-Associated Artery/Lesion type: [place] artery [place] vs. transplanted heart: [place] heart Associated angina: without angina Qualified Code(s): I25.10 - Atherosclerotic heart disease of [place] coronary artery without angina pectoris (3) Dyslipidemia Code(s): E78.5 - HYPERLIPIDEMIA, UNSPECIFIED Status: Chronic (4) Hypertension Code(s): I10 - ESSENTIAL (PRIMARY) HYPERTENSION Status: Chronic Qualifiers: Hypertension type: essential hypertension Qualified Code(s): I10 - Essential (primary) hypertension (5) Ischemic cardiomyopathy Code(s): I25.5 - ISCHEMIC CARDIOMYOPATHY Status: Chronic (6) Paroxysmal atrial fibrillation Code(s): I48.0 - PAROXYSMAL ATRIAL FIBRILLATION Status: Chronic - Plan History of CAD S/P PCI. presented with chest pain and elevated troponins. On Aspitin, Plavix, Atorvastatin, Lisinopril and Metoprolol. CHB for pacemaker placement. Appreciate cardiology.
--- NOTE | 2019-06-19 18:22 | RAD ---
SINGLE VIEW OF THE CHEST: 06/19/19 COMPARISON: 06/17/19 HISTORY: Pacemaker placement. FINDINGS: Single view of the chest shows an enlarged but stable cardiomediastinal silhouette. A left subclavian pacemaker is seen with its leads in the right atrium and ventricle. No pneumothorax is seen. There a ppears to be a small left pleural effusion. IMPRESSION: 1. Status post pacemaker placement without evidence of complication. 2. Small left pleural effusion. POS: EAA
[2019-06-20 02:11] LABS: Hemoglobin 14.2 g/dL (14.0-18.0); Platelet Count 279 thou/uL (130-400)
[2019-06-20] MEDS: cefTRIAXone\\ROCEPHIN 1 GM in Sodium Chloride 0.9% 100 ML IVPB SCH (03:48)
[2019-06-20 04:16] LABS: Anion Gap 13 mmol/L (10-20); BUN (Urea Nitrogen) 17 mg/dL (8.4-25.7); Calc. Creatinine Clearance 82 mL/min (70-130); Calcium 8.9 mg/dL (7.8-10.44); Carbon Dioxide 28 mmol/L (23-31); Chloride 101 mmol/L (98-107); Estimated GFR-MDRD 90; Glucose 96 mg/dL (83-110); Potassium 3.7 mmol/L (3.5-5.1); Sodium 138 mmol/L (136-145)
[2019-06-20 04:20] LABS: Band 6 % (5-11); Eosinophils 3 % (0-10); Hemoglobin 13.5 g/dL (14.0-18.0); Lymphocytes 23 % (21-51); MDiff Complete? YES; Mean Corpuscular HGB CONC 33.9 g/dL (32.0-36.0); Mean Corpuscular Hemoglobin 33.2 pg (27.0-31.0); Mean Corpuscular Volume 98.1 fL (78.0-98.0); Mean Platelet Volume 7.7 fL (7.4-10.4); Monocytes 7 % (0-10); Neutrophil 61 % (42-75); Platelet Count 275 thou/uL (130-400); Platelet Morphology Comment Appears Adequate; Red Blood Cell (RBC) Count 4.07 mill/uL (4.70-6.10); White Blood Cell (WBC) Count 14.9 thou/uL (4.8-10.8)
[2019-06-20] MEDS: Aspirin 325 mg Enteric Coated Tablet PO SCH (08:09)
[2019-06-20] MEDS: Bumetanide 1 MG TAB PO SCH (08:09)
[2019-06-20] MEDS: Atorvastatin Calcium 40 MG TAB PO SCH (08:10)
[2019-06-20] MEDS: Lisinopril 10 MG TAB PO SCH (08:10)
[2019-06-20] MEDS: Clopidogrel Bisulfate 75 MG TAB PO SCH (08:11)
[2019-06-20] MEDS ORDERED: Non-Formulary Item 1 EACH (Bumetanide [Bumetanide] 2 MG) PO SCH (09:00)
[2019-06-20] MEDS ORDERED: Iopamidol 370 76% 100 ML VIAL ONE (11:11)
--- NOTE | 2019-06-20 11:38 | PDOC.CPN ---
- Subjective Date: 06/20/19 Time: 11:00 - Review of Systems General: reports: fever/chills, fatigue Respiratory: reports: congestion, shortness of breath Cardiovascular: reports: palpitation, paroxysmal nocturnal dyspnea, orthopnea Gastrointestinal: reports: nausea, vomiting Musculoskeletal: reports: tenderness (some tenderness in the left shoulder and around the pacer site. wound looks good.), stiffness, swelling Neurological: reports: syncope, weakness - Objective Allergies/Adverse Reactions: Allergies Allergy/AdvReac Type Severity Reaction Status Date / Time amiodarone Allergy Verified 06/18/19 04:57 Visit Medications: Current Medications Acetaminophen (Tylenol) 650 mg PO Q4H PRN PRN Reason: Headache/Fever/Mild Pain (1-3) Last Admin: 06/18/19 22:18 Dose: 650 mg Acetaminophen/Codeine Phosphate (Tylenol #3) 1 tab PO Q4H PRN PRN Reason: Mild Pain (1-3) Last Admin: 06/19/19 20:26 Dose: 1 tab Hydrocodone Bitart/Acetaminophen ([place] 5/325) 1 tab PO Q4H PRN PRN Reason: Moderate Pain (4-6) Last Admin: 06/20/19 09:10 Dose: 1 tab Hydrocodone Bitart/Acetaminophen ([place] 5/325) 2 tab PO Q4H PRN PRN Reason: Severe Pain (7-10) Last Admin: 06/20/19 05:02 Dose: 2 tab Aspirin (Ecotrin) 325 mg PO DAILY [facility] Last Admin: 06/20/19 08:09 Dose: 325 mg Atorvastatin Calcium (Lipitor) 40 mg PO QAM [facility] Last Admin: 06/20/19 08:10 Dose: 40 mg Bumetanide (Bumex) 2 mg PO DAILY [facility] Last Admin: 06/20/19 08:09 Dose: 2 mg Clopidogrel Bisulfate (Plavix) 75 mg PO DAILY [facility] Last Admin: 06/20/19 08:11 Dose: 75 mg Ceftriaxone Sodium 1 gm/ (Sodium Chloride) 100 mls @ 200 mls/hr IVPB Q24HR [facility] Last Admin: 06/20/19 03:48 Dose: 100 mls Ipratropium [place] (Atrovent) 2.5 ml NEB [id number] PRN PRN Reason: SOB &/or Wheezing Last Admin: 06/18/19 04:05 Dose: 2.5 ml Lisinopril (Zestril) 10 mg PO QAM [facility] Last Admin: 06/20/19 08:10 Dose: 10 mg Metoprolol Succinate (Toprol Xl) 50 mg PO DAILY [facility] Last Admin: 06/20/19 08:10 Dose: 50 mg Morphine Sulfate (Morphine) 2 mg SLOW IVP Q5MIN PRN PRN Reason: Chest Pain Nitroglycerin (Nitrostat) 0.4 mg SL Q5MIN PRN PRN Reason: Chest Pain Sodium Chloride (Flush - Normal Saline) 10 ml IVF Q12HR [facility] Last Admin: 06/20/19 08:11 Dose: 10 ml Sodium Chloride (Flush - Normal Saline) 10 ml IVF PRN PRN PRN Reason: Saline Flush Sodium Chloride (Flush - Normal Saline) 10 ml IVF Q12HR [facility] Last Admin: 06/20/19 08:12 Dose: Not Given Sodium Chloride (Flush - Normal Saline) 10 ml IVF PRN PRN PRN Reason: Saline Flush Vital Signs & Weight: Vital Signs Temp Pulse Resp BP BP Pulse Ox 06/20/19 11:23 97.4 F L 80 14 123/68 100 06/20/19 07:03 97.9 F 60 16 127/61 97 06/20/19 03:13 97.5 F L 56 L 18 113/56 L 97 06/20/19 01:17 95 Weight 171 lb 4.8 oz - Quality Measures Condition: Coronary Artery Disease CV meds: Beta Sven: Yes, Statin: Yes, ASA: Yes - Physical Exam HEENT: normocephaly Neck: no JVD/HJR Cardiac: regular rate and rhythm, no murmur, other (pacing) Lungs: clear to auscultation, no wheeze, rales, rhonchi Neuro: grossly intact Abdomen: unremarkable Extremities: no edema Musculoskeletal: normal range of motion - Labs Result Diagrams: 06/20/19 03:43 06/20/19 03:43 Troponin/CKMB CK-MB (CK-2) 6.2 ng/mL (0-6.6) 06/17/19 22:59 Troponin I 0.502 ng/mL (< 0.028) H* 06/19/19 09:51 - Diagnostic Chest x-ray Status: image reviewed by me (no acute changes. Pacer leads in good position. small left pleural effusion, unchanged. No specific infiltrates.) - Telemetry Sinus rhythms and dysrhythmias: other (pacing 100%) - Assessment/Plan Assessment/Plan: 1. CHB: pacemaker stable. normal function. 2. CAD. Previous stent at [facility] : 2 stents to proximal / mid. LAD. 3.0 and 3.5 mm synergy drug eluting stents. Per the [facility] wafer polisher, he has an RCA-100% occluded ( this is old), and a L-circumflex: 30%. 3. Dyslipidemia: continue statins. 4. HTN: under reasonable control. Continue Metoprolol but increase dose. 5. Atrial arrythmias. Increase betablockers. 6. He continues to have some throat discomfort when he tries to swallow but when he drinks or eats the discomfort is not present. I do not feel that this is cardiac in nature. he may need endoscopy as an outpt. 7. Small left pleural effusion. This was present on th initial CXR. ? significance. He is concerned that he may have an infection in his lungs. No fever. WBC was elevated. he does not want to go home until he is "well". From a cardiac standpoint I feel tht he is stable for d/c. He can f/u with his doctors in [place].
[2019-06-20] MEDS ORDERED: ALPRAZolam 0.25 MG TAB PO SCH (13:30)
--- NOTE | 2019-06-20 14:01 | EKG ---
Test Reason : ROUTINE Blood Pressure : / mmHG Vent. Rate : 073 BPM Atrial Rate : 073 BPM P-R Int : 184 ms QRS Dur : 184 ms QT Int : 498 ms P-R-T Axes : 090 270 087 degrees QTc Int : 548 ms Atrial-sensed ventricular-paced rhythm Abnormal ECG When compared with ECG of 17-JUN-2019 23:57, (Unconfirmed) Electronic ventricular pacemaker has replaced Atrial fibrillation Confirmed by DR. Ginna SIERRA ([id number]) on 06/20/2019 2:01:05 PM Referred By: MARNI Confirmed By:DR. Ginna SIERRA
--- NOTE | 2019-06-20 14:04 | EKG ---
Test Reason : Blood Pressure : / mmHG Vent. Rate : 080 BPM Atrial Rate : 080 BPM P-R Int : 000 ms QRS Dur : 198 ms QT Int : 482 ms P-R-T Axes : 007 269 093 degrees QTc Int : 555 ms AV sequential or dual chamber electronic pacemaker When compared with ECG of 19-JUN-2019 18:53, (Unconfirmed) Vent. rate has increased BY [address] Ginna SIERRA ([id number]) on 06/20/2019 2:03:52 PM Referred By: MARNI Confirmed By:DR. Ginna SIERRA
--- NOTE | 2019-06-20 15:37 | PDOC.HOSPP ---
- Subjective Encounter Date: 06/20/19 Subjective: Complaining of pain around the pacemaker insertion site. - Objective Vital Signs & Weight: Vital Signs (12 hours) Temp Pulse Resp BP BP Pulse Ox 06/20/19 11:23 97.4 F L 80 14 123/68 100 06/20/19 07:03 97.9 F 60 16 127/61 97 Weight Weight 171 lb 4.8 oz I&O: 06/19/19 06/20/19 06/21/19 06:59 06:59 06:59 Intake Total 680 700 Output Total 500 875 Balance 180 -175 Result Diagrams: 06/20/19 03:43 06/20/19 03:43 Hospitalist ROS - Medication Medications: Active Medications Generic Name Dose Route Start Last Admin Trade Name Freq PRN Reason Stop Dose Admin Acetaminophen 650 mg 06/18/19 01:00 06/18/19 22:18 Tylenol PO 650 mg Q4H PRN Administration Headache/Fever/Mild Pain (1-3) Acetaminophen/Codeine Phosphate 1 tab 06/19/19 16:26 06/19/19 20:26 Tylenol #3 PO 1 tab Q4H PRN Administration Mild Pain (1-3) Hydrocodone Bitart/Acetaminophen 1 tab 06/18/19 01:00 06/20/19 09:10 [place] 5/325 PO 1 tab Q4H PRN Administration Moderate Pain (4-6) Hydrocodone Bitart/Acetaminophen 2 tab 06/18/19 01:00 06/20/19 05:02 [place] 5/325 PO 2 tab Q4H PRN Administration Severe Pain (7-10) Aspirin 325 mg 06/18/19 09:00 06/20/19 08:09 Ecotrin PO 325 mg DAILY MADAN Administration Atorvastatin Calcium 40 mg 06/18/19 09:00 06/20/19 08:10 Lipitor PO 40 mg QAM MADAN Administration Bumetanide 2 mg 06/20/19 09:00 06/20/19 08:09 Bumex PO 2 mg DAILY MADAN Administration Clopidogrel Bisulfate 75 mg 06/20/19 09:00 06/20/19 08:11 Plavix PO 75 mg DAILY MADAN Administration Ceftriaxone Sodium 1 gm/ 100 mls @ 200 mls/hr 06/18/19 02:00 06/20/19 03:48 Sodium Chloride IVPB 100 mls Q24HR MADAN Administration Ipratropium [place] 2.5 ml 06/18/19 02:50 06/18/19 04:05 Atrovent NEB 2.5 ml [id number] PRN Administration SOB &/or Wheezing Lisinopril 10 mg 06/18/19 09:00 06/20/19 08:10 Zestril PO 10 mg QAM MADAN Administration Metoprolol Succinate 50 mg 06/20/19 09:00 06/20/19 08:10 Toprol Xl PO 50 mg DAILY MADAN Administration Sodium Chloride 10 ml 06/18/19 09:00 06/20/19 08:11 Flush - Normal Saline IVF 10 ml Q12HR MADAN Administration Sodium Chloride 10 ml 06/18/19 21:00 06/20/19 08:12 Flush - Normal Saline IVF Not Given Q12HR MADAN - Exam General Appearance: awake alert Neck: supple, no JVD Heart: RRR, no murmur, no gallops, no rubs Respiratory: CTAB, no wheezes, no rales, no ronchi Gastrointestinal: soft, non-tender Neurological: cranial nerve grossly intact, no weakness Hosp A/P (1) CHB (complete heart block) Code(s): I44.2 - ATRIOVENTRICULAR BLOCK, COMPLETE Status: Acute (2) CAD (coronary artery disease) Code(s): I25.10 - ATHSCL HEART DISEASE OF [place] CORONARY ARTERY W/O ANG PCTRS Status: Acute Qualifiers: Coronary Disease-Associated Artery/Lesion type: [place] artery [place] vs. transplanted heart: [place] heart Associated angina: without angina Qualified Code(s): I25.10 - Atherosclerotic heart disease of [place] coronary artery without angina pectoris (3) Dyslipidemia Code(s): E78.5 - HYPERLIPIDEMIA, UNSPECIFIED Status: Chronic (4) Hypertension Code(s): I10 - ESSENTIAL (PRIMARY) HYPERTENSION Status: Chronic Qualifiers: Hypertension type: essential hypertension Qualified Code(s): I10 - Essential (primary) hypertension (5) Ischemic cardiomyopathy Code(s): I25.5 - ISCHEMIC CARDIOMYOPATHY Status: Chronic (6) Paroxysmal atrial fibrillation Code(s): I48.0 - PAROXYSMAL ATRIAL FIBRILLATION Status: Chronic - Plan History of CAD S/P PCI. presented with chest pain and elevated troponins. No indication for invasive intervention for CAD per cardiology. On Aspitin, Plavix, Atorvastatin, Lisinopril and Metoprolol. CHB S/P pacemaker placement. Leukocytosis likely reactive. NO source of infection is apparent. CXR and UA with no acute abnormalities. VS stable. Procalcitonin negative. The patient is anxious and says he does not feel well. Xanax 0.25 mg one dose. We will follow his progress and DC him home if he feels better.
[2019-06-20] MEDS ORDERED: Polyethylene Glycol 3350 17 GM Packet PO PRN (16:23)
--- NOTE | 2019-06-20 17:25 | CT ---
CT OF THE CHEST WITH CONTRAST 06/20/19 COMPARISON: None. HISTORY: Shortness of breath and chest pain. Pacemaker placement two days ago. TECHNIQUE: Multiple contiguous axial images were obtained in a CTA of the chest with contrast per pulmonary embo lism protocol. 3D oblique MIP reformats and direct coronal reformats were performed. FINDINGS: The pulmonary arteries are well opacified without filling defects to suggest pulmonary emboli. Mild e nlargement of the heart is seen. There is a pacemaker with its leads in the right atrium and right ve ntricle. There is hypertrophy of the left ventricular wall. No hilar or mediastinal lymphadenopathy a re seen. Extensive calcifications are seen in coronary arteries. Emphysematous changes are seen in the lungs. Atelectasis is seen in the lung bases. No suspicious inf iltrates are seen. No pulmonary nodules are present. No pneumothorax or pleural effusion are seen. The pacemaker generator in the left chest wall has surrounding air consistent with recent placement. Degenerative changes are seen in the spine. The spleen is not seen and there are likely small splenul es in the left upper quadrant of the abdomen. The other visualized subdiaphragmatic structures are un remarkable. IMPRESSION: 1. No evidence of pulmonary thromboembolism. 2. Emphysema. POS: EAA
[2019-06-20] MEDS: hydrOXYzine 25 MG TAB PO SCH (18:39)
[2019-06-21] MEDS: cefTRIAXone\\ROCEPHIN 1 GM in Sodium Chloride 0.9% 100 ML IVPB SCH (01:29)
[2019-06-21 04:13] LABS: Band 2 % (5-11); Hemoglobin 13.4 g/dL (14.0-18.0); Hypochromia SLIGHT = 6-15 cells (100X) (0-5/hpf); Lymphocytes 19 % (21-51); MDiff Complete? YES; Mean Corpuscular HGB CONC 32.5 g/dL (32.0-36.0); Mean Corpuscular Hemoglobin 32.2 pg (27.0-31.0); Mean Platelet Volume 7.9 fL (7.4-10.4); Monocytes 9 % (0-10); Neutrophil 70 % (42-75); Platelet Count 255 thou/uL (130-400); Platelet Morphology Comment Appears Adequate; RBC Distribution Width 13.2 % (11.5-14.5); Red Blood Cell (RBC) Count 4.16 mill/uL (4.70-6.10); White Blood Cell (WBC) Count 14.9 thou/uL (4.8-10.8)
[2019-06-21 04:17] LABS: Anion Gap 14 mmol/L (10-20); BUN (Urea Nitrogen) 12 mg/dL (8.4-25.7); Calc. Creatinine Clearance 92 mL/min (70-130); Calcium 8.6 mg/dL (7.8-10.44); Carbon Dioxide 25 mmol/L (23-31); Chloride 102 mmol/L (98-107); Estimated GFR-MDRD Greater than 90; Glucose 97 mg/dL (83-110); Potassium 3.3 mmol/L (3.5-5.1); Sodium 138 mmol/L (136-145)
[2019-06-21] MEDS ORDERED: Potassium Chloride 20 MEQ TAB PO SCH (04:45)
--- NOTE | 2019-06-21 08:49 | PDOC.CPN ---
- Subjective Date: 06/21/19 Time: 08:53 Interval history: The pt seen and examined. No overnight events. No cardiac complaints. - Objective Allergies/Adverse Reactions: Allergies Allergy/AdvReac Type Severity Reaction Status Date / Time amiodarone Allergy Verified 06/18/19 04:57 Visit Medications: Current Medications Acetaminophen (Tylenol) 650 mg PO Q4H PRN PRN Reason: Headache/Fever/Mild Pain (1-3) Last Admin: 06/18/19 22:18 Dose: 650 mg Acetaminophen/Codeine Phosphate (Tylenol #3) 1 tab PO Q4H PRN PRN Reason: Mild Pain (1-3) Last Admin: 06/19/19 20:26 Dose: 1 tab Hydrocodone Bitart/Acetaminophen ([place] 5/325) 1 tab PO Q4H PRN PRN Reason: Moderate Pain (4-6) Last Admin: 06/20/19 09:10 Dose: 1 tab Hydrocodone Bitart/Acetaminophen ([place] 5/325) 2 tab PO Q4H PRN PRN Reason: Severe Pain (7-10) Last Admin: 06/20/19 05:02 Dose: 2 tab Albuterol/Ipratropium (Duoneb) 3 ml NEB [id number] [facility] Last Admin: 06/21/19 07:09 Dose: 3 ml Aspirin (Ecotrin) 81 mg PO DAILY [facility] Atorvastatin Calcium (Lipitor) 40 mg PO QAM [facility] Last Admin: 06/20/19 08:10 Dose: 40 mg Bumetanide (Bumex) 2 mg PO DAILY [facility] Last Admin: 06/20/19 08:09 Dose: 2 mg Clopidogrel Bisulfate (Plavix) 75 mg PO DAILY [facility] Last Admin: 06/20/19 08:11 Dose: 75 mg Hydroxyzine HCl (Atarax) 50 mg PO HS [facility] Last Admin: 06/20/19 18:39 Dose: Not Given Ceftriaxone Sodium 1 gm/ (Sodium Chloride) 100 mls @ 200 mls/hr IVPB Q24HR [facility] Last Admin: 06/21/19 01:29 Dose: 100 mls Ipratropium [place] (Atrovent) 2.5 ml NEB [id number] PRN PRN Reason: SOB &/or Wheezing Last Admin: 06/18/19 04:05 Dose: 2.5 ml Lisinopril (Zestril) 10 mg PO QAM [facility] Last Admin: 06/20/19 08:10 Dose: 10 mg Metoprolol Succinate (Toprol Xl) 50 mg PO DAILY [facility] Last Admin: 06/20/19 08:10 Dose: 50 mg Morphine Sulfate (Morphine) 2 mg SLOW IVP Q5MIN PRN PRN Reason: Chest Pain Nitroglycerin (Nitrostat) 0.4 mg SL Q5MIN PRN PRN Reason: Chest Pain Polyethylene Glycol (Miralax) 17 gm PO DAILYPRN PRN PRN Reason: Constipation Last Admin: 06/20/19 18:19 Dose: 17 gm Sodium Chloride (Flush - Normal Saline) 10 ml IVF Q12HR [facility] Last Admin: 06/20/19 20:33 Dose: Not Given Sodium Chloride (Flush - Normal Saline) 10 ml IVF PRN PRN PRN Reason: Saline Flush Sodium Chloride (Flush - Normal Saline) 10 ml IVF Q12HR [facility] Last Admin: 06/20/19 20:33 Dose: 10 ml Sodium Chloride (Flush - Normal Saline) 10 ml IVF PRN PRN PRN Reason: Saline Flush Vital Signs & Weight: Vital Signs Temp Pulse Resp BP Pulse Ox 06/21/19 08:00 98 06/21/19 07:10 96 06/21/19 07:09 69 14 06/21/19 06:10 108/72 06/21/19 03:28 97.7 F 60 18 94/50 L 95 Weight 170 lb 12.8 oz - Quality Measures Condition: Coronary Artery Disease CV meds: Beta Sven: Yes, Statin: Yes, ASA: Yes - Physical Exam General: alert & oriented x3 HEENT: mucus membranes moist Neck: supple neck Cardiac: regular rate and rhythm, S1/S2 Lungs: decreased breath sounds Neuro: cranial nerve 2-12 intact Extremities: other: (PM site with dry dressing, no swelling or erythema noticed) Musculoskeletal: normal range of motion - Labs Result Diagrams: 06/21/19 03:48 06/21/19 03:48 Troponin/CKMB CK-MB (CK-2) 6.2 ng/mL (0-6.6) 06/17/19 22:59 Troponin I 0.502 ng/mL (< 0.028) H* 06/19/19 09:51 - Telemetry Sinus rhythms and dysrhythmias: other (V paced) - Assessment/Plan Assessment/Plan: 1. CHB with s/p Medtronic PM placement on 06/19/2019 - normal function. 2. CAD with BARBY stent at [facility] : 2 stents to proximal / mid. LAD. 3.0 and 3.5 mm synergy drug eluting stents; Per the [facility] junior net developer, he has an RCA-100% occluded ( this is old), and a L-circumflex: 30%. - On Metoprolol, Plavix, ASA, and Lipitor 3. Dyslipidemia: continue statins. 4. HTN: under reasonable control. Continue Metoprolol but increase dose. 5. Atrial arrythmias - stable since betablockers was increased. 6. He continues to have some throat discomfort when he tries to swallow but when he drinks or eats the discomfort is not present. I do not feel that this is cardiac in nature. he may need endoscopy as an outpt. 7. Small left pleural effusion. This was present on th initial CXR. ? significance. * From Cardiac standpoint, the pt can be d/keena home. He has f/u with Lawyer Probate at [facility]. Pt. seen an eval. by me. I agree with the A/P by the PRODUCTION SAMPLER. Chest clear. RRR. Pacing 100% in the ventricle. He still has vague complaints and says that the neck pain is helped by hydroxizine. i believe he has a large component of anxiety. I will start routine xanax today, if stable he could go home later today.
[2019-06-21] MEDS ORDERED: Aspirin 81 mg Enteric Coated Tablet PO SCH (09:00)
[2019-06-21] MEDS ORDERED: ALPRAZolam 0.25 MG TAB PO PRN (09:11)
[2019-06-21] MEDS: Bumetanide 1 MG TAB PO SCH (09:40)
[2019-06-21] MEDS: Atorvastatin Calcium 40 MG TAB PO SCH (09:40)
[2019-06-21] MEDS: Clopidogrel Bisulfate 75 MG TAB PO SCH (09:41)
[2019-06-21] MEDS: hydrOXYzine 25 MG TAB PO SCH (09:42)
[2019-06-21] MEDS: Lisinopril 10 MG TAB PO SCH (09:54)
[2019-06-21 15:49] VITALS: BP 103/53; TEMP 96.8
--- NOTE | 2019-06-21 17:27 | CCL ---
DATE OF PROCEDURE: 06/18/19 INDICATIONS FOR PROCEDURE: This is a 74-year-old gentleman who had intermittent evidence of second degree heart block type I, ty pe II and then developed intermittent third degree AV heart block with severe bradycardia. Heart rate s in the 30s and 40s. He was advised to undergo a dual chamber pacemaker insertion. He was taken to [facility] cardiac screedman/laborer where he underwent the procedure today without difficulties or complications. A f ull dictated note can be found in the chart. He was found implanted with an Advisa dual chamber pacem long from [employer]. This was an MRI compatible device. Pacemaker was set with the upper rate at 120 and the lower rate was set at 60. There were no difficulties or complications encountered. He was giv en IV contrast for visualization of the left subclavian vein at the beginning of the procedure to hel p engage into the left subclavian after two attempts had failed to obtain access to the left subclavi an vein. He had two screw-in leads placed. One in the atrium and one in the ventricle. No difficultie s or complications Otherwise were encountered. He was given 1 mg of IV versed for conscious sedation and throughout the procedure was monitored by an independent observer present for heart rate, blood pressure and O2 sat uration. Total conscious sedation time was 43 minutes.
--- NOTE | 2019-06-22 00:56 | DIS ---
DATE OF ADMISSION: 06/18/2019 DATE OF DISCHARGE: 06/21/2019 DISCHARGE DIAGNOSES: 1. Complete heart block. 2. Ischemic cardiomyopathy. 3. Coronary artery disease. 4. Dyslipidemia. 5. Hypertension. 6. Paroxysmal atrial fibrillation. 7. Leukocytosis. 8. Emphysema. DISCHARGE MEDICATIONS: 1. Tylenol No. 3 one tablet every 6 hours as needed for pain. 2. Metoprolol succinate 50 mg orally daily. 3. Atorvastatin. 4. Aspirin 81 mg orally daily. 5. Bumex 2 mg orally daily. 6. Plavix 75 mg orally daily. 7. Hydroxyzine 50 mg orally nightly. 8. Digoxin 0.25 mg orally daily. This medicine will be discontinued due to bradycardia. 9. Magnesium oxide 400 mg orally daily. 10. Potassium chloride 10 mEq orally daily. HISTORY OF PRESENT ILLNESS AND HOSPITAL COURSE: The patient is a 74-year-old male with history of hypertension, hyperlipidemia, coronary artery disease, ischemic cardiomyopathy, and paroxysmal atrial fibrillation, who presented to the hospital with shortness of breath. He presented to an emergency department at [facility], where his troponin was found to be elevated at 0.3. So, he was transferred to our facility subsequently for further evaluation. The patient denied any chest pain, palpitations, fever, chills, or cough. He had PCI with 2 stents placed earlier this year. The patient's troponin levels were trended, and they remained low. Cardiology Service was consulted, and they recommended no invasive intervention for coronary artery disease. The patient remained on medical therapy with aspirin, Plavix, atorvastatin, metoprolol, and lisinopril. He was noted to be bradycardic in the hospital, and EKG revealed complete heart block. The patient had a pacemaker placed successfully. Leukocytosis was noted, and a source for infection was pursued and was not identified. Studies including UA, procalcitonin, chest x-ray, CT scan of the chest were all negative. Leukocytosis likely is reactive. The patient was also complaining of feeling anxious and shaking, and his hydroxyzine at home was restarted, and that helped with his symptoms. We recommend outpatient followup with PCP and Cardiology in 1 to 2 weeks. Job ID: [id number]
--- NOTE | 2019-06-22 03:34 | PQF ---
IRA LUTHER G JEAN MD [id number] [facility]-280 [id number] CLINICAL DOCUMENTATION CLARIFICATION FORM: POST DISCHARGE Addendum to original discharge summary date: ____ Late entry note date: __ DATE: 06/22/19 ATTN: Mahi Bruce Please exercise your independent, professional judgment in responding to the clarification form. Clinical indicators are provided on the bottom of this form for your review Can you please further clarify the diagnosis of the patient? Please check appropriate box(s): AMI TYPE: [ ] NSTEMI (MS type I) [ ] NSTEMI (MS type 2) please specify etiology: [ ] Demand Ischemia without MS [ ] Other diagnosis [ ] Unable to determine In addition, please specify: Present on Admission (POA): [ ] Yes [ ] No [ ] Unable to determine CLINICAL INDICATORS - SIGNS / SYMPTOMS / LABS ED Provider pg.3- NSTEMI Laboratory- Troponin: 0.485H, 0.532H, 0.567H, 0.571H, 0.502H H and P pg.1- comes to the hospital due to SOB H and P pg.1- found to have elevated troponin at 0.3 for which he was transfer here due to NSTEMI Hospitalist PN pg.4- presented with chest pain and elevated troponins DS pg.1- the patient troponin levels were trended and they remained low RISKS: CAD- H and P pg.1 HTN- H and P pg.1 HLD- H and P pg.1 Former smoker- H and P pg.1 Ischemic cardiomyopathy- DS pg.1 Complete heart block- DS pg.1 TREATMENTS: Dual pacemaker insertion- HEALTHCARE ARCHITECT Procedure Chest X ray 06/16 Echocardiogram 06/[address] Franco Troponin Monitoring- Laboratory IV Fluids- MAR Aspirin 81mg PO- MAR Digoxin 0.25mg PO- MAR Plavix 75,g PO- MAR (This form is maintained as a part of the permanent medical record) 2014 [email or web address], [email or web address]. All Rights Reserved Perry [email or web address]
--- NOTE | 2019-06-22 13:57 | EKG ---
Test Reason : Blood Pressure : / mmHG Vent. Rate : 102 BPM Atrial Rate : 101 BPM P-R Int : 000 ms QRS Dur : 132 ms QT Int : 398 ms P-R-T Axes : 000 158 -14 degrees QTc Int : 518 ms Wide QRS rhythm Right bundle branch block Abnormal ECG Confirmed by EDGARDO VALLEJO DO ([id number]), editorial manager LAURA PUGA ([id number] on 06/22/2019 1:57:23 PM Referred By: Confirmed By:EDGARDO VALLEJO DO
--- NOTE | 2019-06-27 14:47 | EKG ---
Test Reason : Blood Pressure : / mmHG Vent. Rate : 081 BPM Atrial Rate : 096 BPM P-R Int : 000 ms QRS Dur : 136 ms QT Int : 472 ms P-R-T Axes : 000 165 -18 degrees QTc Int : 548 ms Atrial fibrillation Right bundle branch block Left posterior fascicular block Bifascicular block Septal infarct , age undetermined Inferior infarct , age undetermined No STEMI Abnormal ECG Confirmed by ADELAIDE PARADA M.D. ([id number]), film and video editor LAURA PUGA ([id number]) on 06/27/2019 2:46:54 PM Referred By: Confirmed By:ADELAIDE PARADA M.D.
== END 2019-06-21 16:40 | disposition home or self-care (01) | DRG 243 ==
LOC: ERS 22:02 → 2NO 06-18 00:02
PROVIDERS: ADMIT Internal Medicine; ATTEND Internal Medicine
PROC: 0JH606Z Insertion of Pacemaker, Dual Chamber into Chest Subcutaneous Tissue and Fascia, Open Approach (ICD-10-PCS; principal; 2019-06-19)
PROC: 02H63JZ Insertion of Pacemaker Lead into Right Atrium, Percutaneous Approach (ICD-10-PCS; 2019-06-19)
PROC: 02HK3JZ Insertion of Pacemaker Lead into Right Ventricle, Percutaneous Approach (ICD-10-PCS; 2019-06-19)
DX: I44.2 Atrioventricular block, complete (principal); J90 Pleural effusion, not elsewhere classified; I25.5 Ischemic cardiomyopathy; I25.10 Atherosclerotic heart disease of native coronary artery without angina pectoris; E78.5 Hyperlipidemia, unspecified; I10 Essential (primary) hypertension; I48.0 Paroxysmal atrial fibrillation; D72.829 Elevated white blood cell count, unspecified; J43.9 Emphysema, unspecified; G89.29 Other chronic pain; E78.00 Pure hypercholesterolemia, unspecified; Z79.899 Other long term (current) drug therapy; Z87.891 Personal history of nicotine dependence; Z95.5 Presence of coronary angioplasty implant and graft; R79.89 Other specified abnormal findings of blood chemistry
CPT/HCPCS: 33208; 36005; 36415; 71045; 71275; 75820; 80048; 80053; 80061; 80162; 81001; 82550; 82553; 83036; 83605; 83735; 83880; 84145; 84484; 85007; 85014; 85018; 85025; 85027; 85049; 85379; 85730; 87040; 87086; 93005; 93010; 93306; 93798; 94640; 94760; 96372; 99152; 99153; C1785; C1898; J0690; J0696; J1580; J1644; J1650; J2001; J2250; J3490; J7620; Q0163; Q9967

== ENCOUNTER 2020-01-08 13:25 | Inpatient (IN) | payer MEDICARE ==
[2020-01-08] MEDS ORDERED: Lidocaine Viscous Sol 2% 15 ml UD Cup ONE ×2 (13:41→18:18)
[2020-01-08] MEDS ORDERED: Metoprolol Tartrate 5 MG/5 ML VIAL ONE (13:48)
[2020-01-08] MEDS ORDERED: Nitroglycerin 2% Ointment 1 INCH/1 GM Packet ONE (13:48)
[2020-01-08 14:02] LABS: Hemoglobin 14.2 g/dL (14.0-18.0); Mean Corpuscular HGB CONC 32.9 g/dL (32.0-36.0); Mean Corpuscular Hemoglobin 32.7 pg (27.0-31.0); Mean Corpuscular Volume 99.4 fL (78.0-98.0); Mean Platelet Volume 7.3 fL (7.4-10.4); Platelet Count 336 thou/uL (130-400); RBC Distribution Width 13.9 % (11.5-14.5); Red Blood Cell (RBC) Count 4.33 mill/uL (4.70-6.10); White Blood Cell (WBC) Count 14.6 thou/uL (4.8-10.8)
[2020-01-08 14:25] LABS: Band 4 % (5-11); Lymphocytes 17 % (21-51); MDiff Complete? YES; Macrocytosis SLIGHT = 6-15 cells (100X) (0-5/hpf); Monocytes 20 % (0-10); Neutrophil 49 % (42-75); Platelet Morphology Comment Appears Adequate; Polychromasia SLIGHT = 2-3 cells (100X) (0-2/hpf); Reactive Lymphocytes 10 % (0-10); Schistocytes SLIGHT = 2-5 cells (100X) (0-1/hpf)
--- NOTE | 2020-01-08 14:35 | RAD ---
PORTABLE CHEST ONE VIEW: 01/08/20 at 2:22 p.m. HISTORY: Dyspnea. Atrial fibrillation. COMPARISON: 06/19/19. FINDINGS: Left sided pacemaker device remains in place. The heart size is enlarged but stable. A small left ple ural effusion again seen. No lobar consolidation, pneumothoraces, or right pleural effusion identifie d. IMPRESSION: Stable exam. POS: AH
[2020-01-08 14:52] LABS: ALT (SGPT) 17 U/L (8-55); AST (SGOT) 35 U/L (5-34); Alkaline Phosphatase 122 U/L (40-110); Anion Gap 20 mmol/L (10-20); BUN (Urea Nitrogen) 17 mg/dL (8.4-25.7); Bilirubin, Total 0.6 mg/dL (0.2-1.2); Calc. Creatinine Clearance 0 mL/min (70-130); Calcium 9.1 mg/dL (7.8-10.44); Carbon Dioxide 24 mmol/L (23-31); Chloride 99 mmol/L (98-107); Estimated GFR-MDRD 57; Globulin 3.1 g/dL (2.4-3.5); Glucose 103 mg/dL (83-110); Potassium 4.4 mmol/L (3.5-5.1); Protein, Total 7.1 g/dL (5.8-8.1); Sodium 139 mmol/L (136-145)
[2020-01-08 15:13] LABS: CKMB 7.6 ng/mL (0-6.6)
[2020-01-08] MEDS ORDERED: Aspirin Chewable 81 MG TAB ONE (15:15)
[2020-01-08] MEDS ORDERED: Furosemide 40 MG/4 ML VIAL ONE (15:47)
[2020-01-08 15:49] LABS: Digoxin Less than 0.15 ng/mL (0.8-2.0)
[2020-01-08 17:30] LABS: Troponin I 0.198 ng/mL (< 0.028)
[2020-01-08] MEDS ORDERED: Acetaminophen 325 MG TAB ONE (17:36)
[2020-01-08 20:15] LABS: Troponin I 0.173 ng/mL (< 0.028)
[2020-01-08 22:28] VITALS: BMI 28.0
[2020-01-08] MEDS ORDERED: Melatonin 3 MG TAB PO PRN ×2 (22:32→22:50)
[2020-01-08] MEDS ORDERED: Digoxin 0.5 MG/2 ML AMP SLOW IVP SCH (22:50)
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
[2020-01-08] MEDS ORDERED: Famotidine 20 MG TAB PO SCH (23:00)
[2020-01-08] MEDS: Famotidine 20 MG TAB PO SCH ×2 (23:10→23:35)
[2020-01-08] MEDS: diphenhydrAMINE 25 MG CAP PO PRN (23:31)
[2020-01-08] MEDS: Lidocaine Viscous Sol 2% 15 ml UD Cup SSW PRN (23:31)
[2020-01-08] MEDS: Mag-Al 1200 mg/1200 mg/30 ML UDCUP PO PRN (23:31)
[2020-01-08] MEDS: Nitroglycerin 2% Ointment 1 INCH/1 GM Packet TOP SCH (23:35)
[2020-01-09] MEDS: Acetaminophen 325 MG TAB PO PRN ×3 (03:02→17:50)
[2020-01-09] MEDS: Lidocaine Viscous Sol 2% 15 ml UD Cup SSW PRN ×4 (03:02→23:05)
[2020-01-09 05:05] LABS: Anion Gap 17 mmol/L (10-20); BUN (Urea Nitrogen) 17 mg/dL (8.4-25.7); Calc. Creatinine Clearance 62 mL/min (70-130); Carbon Dioxide 24 mmol/L (23-31); Chloride 100 mmol/L (98-107); Estimated GFR-MDRD 58; Glucose 107 mg/dL (83-110); Potassium 4.1 mmol/L (3.5-5.1); Sodium 137 mmol/L (136-145)
[2020-01-09 05:45] LABS: #Basophils 0.1 thou/uL (0.0-0.2); #Eosinphils 0.5 thou/uL (0.0-0.7); #Lymphocytes 5.1 thou/uL (1.20-3.40); #Monocytes 2.4 thou/uL (0.11-0.59); #Neutrophils 8.5 thou/uL (1.40-6.50); %Basophils 0.7 % (0.0-1.0); %Eosinophils 3.1 % (0.0-10.0); %Lymphocytes 30.8 % (21.0-51.0); %Monocytes 14.6 % (0.0-10.0); %Neutrophils 50.8 % (42.0-75.0); Hemoglobin 14.4 g/dL (14.0-18.0); Mean Corpuscular HGB CONC 31.9 g/dL (32.0-36.0); Mean Corpuscular Hemoglobin 31.9 pg (27.0-31.0); Mean Corpuscular Volume 99.9 fL (78.0-98.0); Mean Platelet Volume 7.7 fL (7.4-10.4); Platelet Count 304 thou/uL (130-400)
[2020-01-09] MEDS: Nitroglycerin 2% Ointment 1 INCH/1 GM Packet TOP SCH ×3 (06:45→23:06)
[2020-01-09] MEDS: Famotidine 20 MG TAB PO SCH ×2 (08:45→20:02)
[2020-01-09] MEDS ORDERED: Aspirin 81 mg Enteric Coated Tablet PO SCH (09:00)
[2020-01-09 10:59] LABS: SARS-CoV-2 MS2 Positive; SARS-CoV-2 N Gene Negative; SARS-CoV-2 S Gene Negative; SARS-CoV-2 by NAA Not Detected (NotDetected); SARS-CoV-2 orf1ab Negative
--- NOTE | 2020-01-09 17:10 | PDOC.HOSPP ---
- Subjective Encounter Date: 01/09/20 Encounter Time: 17:09 Subjective: Mr. Hollins was seen today in follow-up of AFIB with RVR, as well as CHF exacerbation. He says he feels better today. He has had an occasional tightness in his throat. - Objective Vital Signs & Weight: Vital Signs (12 hours) Temp Pulse Resp BP Pulse Ox 01/09/20 15:55 98.2 F 104 H 18 129/81 95 01/09/20 11:42 97.4 F L 111 H 18 171/95 H 98 01/09/20 07:40 97.5 F L 110 H 18 162/100 H 97 Weight Weight 182 lb 2 oz Result Diagrams: 01/09/20 04:27 01/09/20 04:27 Hospitalist ROS - Medication Medications: Active Medications Generic Name Dose Route Start Last Admin Trade Name Freq PRN Reason Stop Dose Admin Acetaminophen 650 mg 01/08/20 22:50 01/09/20 13:24 Acetaminophen 325 Mg Tab PO 650 mg Q4H PRN Administration Headache/Fever/Mild Pain (1-3) Diphenhydramine HCl 25 mg 01/08/20 22:50 01/08/20 23:31 Diphenhydramine 25 Mg Cap PO 25 mg HSPRN PRN Administration Insomnia Famotidine 20 mg 01/08/20 09:00 01/09/20 08:45 Famotidine 20 Mg Tab PO 20 mg BID MADAN Administration Lidocaine HCl 15 ml 01/08/20 22:53 01/09/20 15:58 Lidocaine Viscous [place] 2% 15 Ml Ud Cup SSW 15 ml Q4H PRN Administration MOUTH PAIN Metoprolol Succinate 25 mg 01/09/20 09:00 01/09/20 08:45 Metoprolol Succinate Xl 25 Mg Tab PO 25 mg DAILY MADAN Administration Nitroglycerin 0.5 inch 01/08/20 23:00 01/09/20 15:55 Nitroglycerin 2% Ointment 1 Inch/1 Gm Packet TOP 0.5 inch 0700,1500,2300 MADAN Administration - Exam General Appearance: NAD, awake alert Eye: PERRL, anicteric sclera Heart: no murmur, no gallops, no rubs, irregular Respiratory: CTAB, no wheezes, no rales, rhonchi Gastrointestinal: soft, non-tender, non-distended, normal bowel sounds, no palpable masses, no hepatomegaly Extremities: 1+ LE edema (ankle edema in both lower extremities) Hosp A/P (1) Atrial fibrillation with RVR Code(s): I48.91 - UNSPECIFIED ATRIAL FIBRILLATION Status: Acute (2) CAD (coronary artery disease) Code(s): I25.10 - ATHSCL HEART DISEASE OF [place] CORONARY ARTERY W/O ANG PCTRS Status: Acute Qualifiers: Coronary Disease-Associated Artery/Lesion type: [place] artery [place] vs. transplanted heart: [place] heart Associated angina: without angina Qualified Code(s): I25.10 - Atherosclerotic heart disease of [place] coronary artery without angina pectoris (3) CAD (coronary artery disease) Code(s): I25.10 - ATHSCL HEART DISEASE OF [place] CORONARY ARTERY W/O ANG PCTRS Status: Chronic Qualifiers: Coronary Disease-Associated Artery/Lesion type: unspecified vessel or lesion type [place] vs. transplanted heart: [place] heart Associated angina: without angina Qualified Code(s): I25.10 - Atherosclerotic heart disease of [place] coronary artery without angina pectoris (4) Dyslipidemia Code(s): E78.5 - HYPERLIPIDEMIA, UNSPECIFIED Status: Chronic (5) Hypertension Code(s): I10 - ESSENTIAL (PRIMARY) HYPERTENSION Status: Chronic Qualifiers: Hypertension type: essential hypertension Qualified Code(s): I10 - Essential (primary) hypertension - Plan * AFIB with RVR- his heart rate is better- he was given one dose of Digoxin, and Metorprolol was re-started * Awaiting further recommendations from Cardiology * Elevated troponins- Likely due to Demand ischemia from the AFIB * HTN- blood pressur is stable *
[2020-01-09] MEDS: Diltiazem 125 MG in Sodium Chloride 0.9% 100 ML IVPB SCH (20:01)
[2020-01-09] MEDS: traZODone HCl 50 MG TAB PO SCH (20:02)
[2020-01-09] MEDS: Atorvastatin Calcium 40 MG TAB PO SCH (20:02)
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
[2020-01-10] MEDS: Nitroglycerin 2% Ointment 1 INCH/1 GM Packet TOP SCH ×3 (06:38→23:06)
[2020-01-10] MEDS: Torsemide 20 MG TAB PO SCH (08:42)
[2020-01-10] MEDS: Aspirin 81 mg Enteric Coated Tablet PO SCH (08:42)
[2020-01-10] MEDS: Famotidine 20 MG TAB PO SCH ×2 (08:42→21:37)
[2020-01-10] MEDS: Lidocaine Viscous Sol 2% 15 ml UD Cup SSW PRN ×2 (08:42→23:06)
[2020-01-10] MEDS: Mag-Al 1200 mg/1200 mg/30 ML UDCUP PO PRN (10:29)
[2020-01-10] MEDS ORDERED: Sotalol HCl 80 MG TAB PO SCH ×2 (10:45→21:00)
[2020-01-10 11:14] LABS: Bacteria/HPF None Seen HPF (None Seen); Bilirubin Negative (Negative); Blood, Urine Negative (Negative); Clarity Clear (Clear); Glucose, Urine (Dipstick) Normal (Negative); Ketone, Urine Negative (Negative); Leukocyte Negative Leu/uL (Negative); Nitrite Negative (Negative); Protein, Urine (Dipstick) Negative (Neg-Trace); RBC/HPF 0-3 HPF (0-3); Specific Gravity, Urine 1.009 (1.002-1.036); Squamous Epithelial 0-3 HPF (0-3); Urobilinogen Normal mg/dL (Less than 2); WBC/HPF 0-3 HPF (0-3); pH, Urine 7.5 (5.0-9.0)
[2020-01-10 11:17] LABS: Urine Culture Reflex No No
[2020-01-10] MEDS: Diltiazem 125 MG in Sodium Chloride 0.9% 100 ML IVPB SCH (14:16)
--- NOTE | 2020-01-10 14:20 | PDOC.HOSPP ---
- Subjective Encounter Date: 01/10/20 Encounter Time: 14:18 Subjective: Mr. Hollins was seen today in follow-up of AFIB with RVR. He does not have any complaints. He says he has not had the throat tightness today. - Objective Vital Signs & Weight: Vital Signs (12 hours) Temp Pulse Resp BP BP BP Pulse Ox 01/10/20 12:29 75 148/88 H 01/10/20 12:20 97.2 F L 92 18 148/88 H 100 01/10/20 07:16 97.7 F 75 16 157/96 H 97 01/10/20 05:23 93 L 01/10/20 04:00 97.8 F 84 20 168/87 H 92 L Weight Weight 185 lb 9.6 oz I&O: 01/09/20 01/10/20 01/11/20 06:59 06:59 06:59 Intake Total 1200 240 Output Total 1150 Balance 50 240 Result Diagrams: 01/09/20 04:27 01/09/20 04:27 Hospitalist ROS - Medication Medications: Active Medications Generic Name Dose Route Start Last Admin Trade Name Freq PRN Reason Stop Dose Admin Acetaminophen 650 mg 01/08/20 22:50 01/09/20 17:50 Acetaminophen 325 Mg Tab PO 650 mg Q4H PRN Administration Headache/Fever/Mild Pain (1-3) Al Hydroxide/Mg Hydroxide 30 ml 01/08/20 22:50 01/10/20 10:29 Mag-Al 1200 Mg/1200 Mg/30 Ml Udcup PO 30 ml Q4H PRN Administration Heartburn or Indigestion Aspirin 81 mg 01/10/20 09:00 01/10/20 08:42 Aspirin 81 Mg Enteric Coated Tablet PO 81 mg DAILY MADAN Administration Atorvastatin Calcium 40 mg 01/09/20 21:00 01/09/20 20:02 Atorvastatin Calcium 40 Mg Tab PO 40 mg HS MADAN Administration Diphenhydramine HCl 25 mg 01/08/20 22:50 01/08/20 23:31 Diphenhydramine 25 Mg Cap PO 25 mg HSPRN PRN Administration Insomnia Famotidine 20 mg 01/08/20 09:00 01/10/20 08:42 Famotidine 20 Mg Tab PO 20 mg BID MADAN Administration Diltiazem HCl 125 mg/ Sodium 125 mls @ 5 mls/hr 01/09/20 18:45 01/10/20 14:16 Chloride IVPB 125 mls INF MADAN Administration Protocol 5 MG/HR Lidocaine HCl 15 ml 01/08/20 22:53 01/10/20 08:42 Lidocaine Viscous [place] 2% 15 Ml Ud Cup SSW 15 ml Q4H PRN Administration MOUTH PAIN Metoprolol Succinate 25 mg 01/09/20 09:00 01/10/20 08:42 Metoprolol Succinate Xl 25 Mg Tab PO 25 mg DAILY MADAN Administration Nitroglycerin 0.5 inch 01/08/20 23:00 01/10/20 14:13 Nitroglycerin 2% Ointment 1 Inch/1 Gm Packet TOP 0.5 inch 0700,1500,2300 MADAN Administration Torsemide 40 mg 01/10/20 09:00 01/10/20 08:42 Torsemide 20 Mg Tab PO 40 mg DAILY MADAN Administration Trazodone HCl 50 mg 01/09/20 21:00 01/09/20 20:02 Trazodone Hcl 50 Mg Tab PO 50 mg HS MADAN Administration - Exam Eye: PERRL, anicteric sclera Heart: RRR, no murmur, no gallops, no rubs, normal peripheral pulses Respiratory: CTAB (with the exception of some coarse breath sounds.) Gastrointestinal: soft, non-tender, non-distended, normal bowel sounds, no palpable masses, no hepatomegaly Extremities: 1+ LE edema Hosp A/P (1) Atrial fibrillation with RVR Code(s): I48.91 - UNSPECIFIED ATRIAL FIBRILLATION Status: Acute (2) CAD (coronary artery disease) Code(s): I25.10 - ATHSCL HEART DISEASE OF [place] CORONARY ARTERY W/O ANG PCTRS Status: Acute Qualifiers: Coronary Disease-Associated Artery/Lesion type: [place] artery [place] vs. transplanted heart: [place] heart Associated angina: without angina Qualified Code(s): I25.10 - Atherosclerotic heart disease of [place] coronary artery without angina pectoris (3) CAD (coronary artery disease) Code(s): I25.10 - ATHSCL HEART DISEASE OF [place] CORONARY ARTERY W/O ANG PCTRS Status: Chronic Qualifiers: Coronary Disease-Associated Artery/Lesion type: unspecified vessel or lesion type [place] vs. transplanted heart: [place] heart Associated angina: without angina Qualified Code(s): I25.10 - Atherosclerotic heart disease of [place] ronary artery without angina pectoris (4) Dyslipidemia Code(s): E78.5 - HYPERLIPIDEMIA, UNSPECIFIED Status: Chronic (5) Hypertension Code(s): I10 - ESSENTIAL (PRIMARY) HYPERTENSION Status: Chronic Qualifiers: Hypertension type: essential hypertension Qualified Code(s): I10 - Essential (primary) hypertension - Plan * AFIB with RVR- his heart rate is better- He has been placed on a Cardizem drip. His heart rate has improved * He has been started on Lovenox * EP has been consulted * Throat tightness- ? etiology- it may be related to the AFIB- he denies symptoms of dysphagia, - will monitor, if it recurs, then will consider GI Evaluation * Elevated troponins- Likely due to [place]and ischemia from the AFIB * HTN- blood pressur isslightly elevated, but trending down
[2020-01-10] MEDS: Acetaminophen 325 MG TAB PO PRN (17:56)
[2020-01-10] MEDS: traZODone HCl 50 MG TAB PO SCH (21:37)
[2020-01-10] MEDS: Atorvastatin Calcium 40 MG TAB PO SCH (21:37)
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
[2020-01-11] MEDS: Nitroglycerin 2% Ointment 1 INCH/1 GM Packet TOP SCH ×3 (08:55→22:12)
[2020-01-11] MEDS: Aspirin 81 mg Enteric Coated Tablet PO SCH (08:56)
[2020-01-11] MEDS: Torsemide 20 MG TAB PO SCH (08:56)
[2020-01-11] MEDS: Famotidine 20 MG TAB PO SCH ×2 (08:56→22:12)
--- NOTE | 2020-01-11 11:54 | PDOC.HOSPP ---
- Subjective Encounter Date: 01/11/20 Encounter Time: 11:52 Subjective: Mr. Mesa was seen today in follow-up of AFIB and tighr feeling in his throat off and on. He says he had an epiosde again yesterday. - Objective Vital Signs & Weight: Vital Signs (12 hours) Temp Pulse Resp BP BP Pulse Ox 01/11/20 07:19 97.3 F L 68 14 148/90 H 97 01/11/20 03:54 98.3 F 62 15 132/67 98 01/11/20 00:45 96 01/11/20 00:00 67 144/67 H Weight Weight 180 lb 14.4 oz I&O: 01/10/20 01/11/20 01/12/20 06:59 06:59 06:59 Intake Total 1200 480 280 Output Total 1150 500 250 Balance 50 -20 30 Result Diagrams: 01/09/20 04:27 01/09/20 04:27 Hospitalist ROS - Medication Medications: Active Medications Generic Name Dose Route Start Last Admin Trade Name Freq PRN Reason Stop Dose Admin Acetaminophen 650 mg 01/08/20 22:50 01/10/20 17:56 Acetaminophen 325 Mg Tab PO 650 mg Q4H PRN Administration Headache/Fever/Mild Pain (1-3) Al Hydroxide/Mg Hydroxide 30 ml 01/08/20 22:50 01/10/20 10:29 Mag-Al 1200 Mg/1200 Mg/30 Ml Udcup PO 30 ml Q4H PRN Administration Heartburn or Indigestion Aspirin 81 mg 01/10/20 09:00 01/11/20 08:56 Aspirin 81 Mg Enteric Coated Tablet PO 81 mg DAILY MADAN Administration Atorvastatin Calcium 40 mg 01/09/20 21:00 01/10/20 21:37 Atorvastatin Calcium 40 Mg Tab PO 40 mg HS MADAN Administration Diphenhydramine HCl 25 mg 01/08/20 22:50 01/08/20 23:31 Diphenhydramine 25 Mg Cap PO 25 mg HSPRN PRN Administration Insomnia Famotidine 20 mg 01/08/20 09:00 01/11/20 08:56 Famotidine 20 Mg Tab PO 20 mg BID MADAN Administration Diltiazem HCl 125 mg/ Sodium 125 mls @ 5 mls/hr 01/09/20 18:45 01/10/20 14:16 Chloride IVPB 125 mls INF MADAN Administration Protocol 5 MG/HR Lidocaine HCl 15 ml 01/08/20 22:53 01/10/20 23:06 Lidocaine Viscous Abe[place] 2% 15 Ml Ud Cup SSW 15 ml Q4H PRN Administration MOUTH PAIN Metoprolol Succinate 25 mg 01/09/20 09:00 01/11/20 08:56 Metoprolol Succinate Xl 25 Mg Tab PO 25 mg DAILY MADAN Administration Nitroglycerin 0.5 inch 01/08/20 23:00 01/11/20 08:55 Nitroglycerin 2% Ointment 1 Inch/1 Gm Packet TOP 0.5 inch 0700,1500,2300 MADAN Administration Sodium Chloride 10 ml 01/10/20 21:00 01/11/20 09:08 Flush - Normal Saline 10 Ml Syringe IVF Not Given Q12HR MADAN Torsemide 40 mg 01/10/20 09:00 01/11/20 08:56 Torsemide 20 Mg Tab PO 40 mg DAILY MADAN Administration Trazodone HCl 50 mg 01/09/20 21:00 01/10/20 21:37 Trazodone Hcl 50 Mg Tab PO 50 mg HS MADAN Administration - Exam Eye: PERRL, anicteric sclera Heart: RRR, no murmur, no gallops, no rubs, normal peripheral pulses Respiratory: CTAB, no wheezes, no rales, no ronchi, normal chest expansion, no tachypnea Gastrointestinal: soft, non-tender, non-distended, normal bowel sounds, no p alpable masses, tender to palpation Extremities: 1+ LE edema (1-2+ pittine edema in both lower extremities) Hosp A/P (1) Atrial fibrillation with RVR Code(s): I48.91 - UNSPECIFIED ATRIAL FIBRILLATION Status: Acute (2) CAD (coronary artery disease) Code(s): I25.10 - ATHSCL HEART DISEASE OF [place] CORONARY ARTERY W/O ANG PCTRS Status: Acute Qualifiers: Coronary Disease-Associated Artery/Lesion type: [place] artery [place] vs. transplanted heart: [place] heart Associated angina: without angina Qualified Code(s): I25.10 - Atherosclerotic heart disease of [place] coronary artery without angina pectoris (3) CAD (coronary artery disease) Code(s): I25.10 - ATHSCL HEART DISEASE OF [place] CORONARY ARTERY W/O ANG PCTRS Status: Chronic Qualifiers: Coronary Disease-Associated Artery/Lesion type: unspecified vessel or lesion type [place] vs. transplanted heart: [place] heart Associated angina: without angina Qualified Code(s): I25.10 - Atherosclerotic heart disease of [place] coronary artery without angina pectoris (4) Dyslipidemia Code(s): E78.5 - HYPERLIPIDEMIA, UNSPECIFIED Status: Chronic (5) Hypertension Code(s): I10 - ESSENTIAL (PRIMARY) HYPERTENSION Status: Chronic Qualifiers: Hypertension type: essential hypertension Qualified Code(s): I10 - Essential (primary) hypertension - Plan * AFIB with RVR- his heart rate is better- discussed with Dr. Street, rate control may be the ultimate goal for the patient, due to his prolonged QT interval he is not a good candidate for antiarrhythmics. * Throat tightness- ? etiology- I spoke with Dr. Ambrocio about the slimeetn's symptoms. It could be related to reflux, or Lisinopril. Will place him on Protonix BID from daily, and ask Dr. Franco if it will be ok to change him to an ARB. He says he can see him in his office on Tuesday Morning/ * Elevated troponins- Likely due to [place] ischemia from the AFIB * HTN- blood pressure- improved
--- NOTE | 2020-01-11 14:37 | PDOC.EP ---
- Subjective Date: 01/11/20 Time: 14:35 Interval History: He is felling somewhat better - less SOB. Still complains of neck dyscomfort. - Review of Systems Constitutional: denies: chills, fever, malaise, sweats, weakness, other Respiratory: reports: SOB with excertion (Improved.). denies: cough, dry, hemoptysis, pleuritic pain, shortness of breath, sputum, wheezing, other Cardiology: denies: edema, paroxysmal noc. dyspnea, passing out Gastrointestinal: denies: abdominal pain, nausea Musculoskeletal: denies: neck pain Neurological: denies: headache, vision changes, other - Objective Allergies/Adverse Reactions: Allergies Allergy/AdvReac Type Severity Reaction Status Date / Time amiodarone Allergy Severe Verified 01/09/20 04:12 Current Medications Acetaminophen (Acetaminophen 325 Mg Tab) 650 mg PO Q4H PRN PRN Reason: Headache/Fever/Mild Pain (1-3) Last Admin: 01/10/20 17:56 Dose: 650 mg Documented by: Al Hydroxide/Mg Hydroxide (Mag-Al 1200 Mg/1200 Mg/30 Ml Udcup) 30 ml PO Q4H PRN PRN Reason: Heartburn or Indigestion Last Admin: 01/10/20 10:29 Dose: 30 ml Documented by: Aspirin (Aspirin 81 Mg Enteric Coated Tablet) 81 mg PO DAILY [facility] Last Admin: 01/11/20 08:56 Dose: 81 mg Documented by: Atorvastatin Calcium (Atorvastatin Calcium 40 Mg Tab) 40 mg PO HS [facility] Last Admin: 01/10/20 21:37 Dose: 40 mg Documented by: Diphenhydramine HCl (Diphenhydramine 25 Mg Cap) 25 mg PO HSPRN PRN PRN Reason: Insomnia Last Admin: 01/08/20 23:31 Dose: 25 mg Documented by: Famotidine (Famotidine 20 Mg Tab) 20 mg PO BID [facility] Last Admin: 01/11/20 08:56 Dose: 20 mg Documented by: Diltiazem HCl 125 mg/ Sodium (Chloride) 125 mls @ 5 mls/hr IVPB INF [facility]AD[facility]; Protocol Last Admin: 01/10/20 14:16 Dose: 125 mls Documented by: Lidocaine HCl (Lidocaine Viscous Abeba 2% 15 Ml Ud Cup) 15 ml SSW Q4H PRN PRN Reason: MOUTH PAIN Last Admin: 01/10/20 23:06 Dose: 15 ml Documented by: Magnesium Hydroxide (Milk Of Magnesia 30 Ml Udcup) 30 ml PO Q8H PRN PRN Reason: Constipation Melatonin (Melatonin 3 Mg Tab) 3 mg PO HS PRN PRN Reason: Insomnia Metoprolol Succinate (Metoprolol Succinate Xl 25 Mg Tab) 25 mg PO DAILY [facility] Last Admin: 01/11/20 08:56 Dose: 25 mg Documented by: Nitroglycerin (Nitroglycerin 2% Ointment 1 Inch/1 Gm Packet) 0.5 inch TOP 0700,1500,2300 [facility] Last Admin: 01/11/20 08:55 Dose: 0.5 inch Documented by: Sodium Chloride (Flush - Normal Saline 10 Ml Syringe) 10 ml IVF Q12HR [facility] Last Admin: 01/11/20 09:08 Dose: Not Given Documented by: Sodium Chloride (Flush - Normal Saline 10 Ml Syringe) 10 ml IVF PRN PRN PRN Reason: Saline Flush Torsemide (Torsemide 20 Mg Tab) 40 mg PO DAILY [facility] Last Admin: 01/11/20 08:56 Dose: 40 mg Documented by: Trazodone HCl (Trazodone Hcl 50 Mg Tab) 50 mg PO HS [facility] Last Admin: 01/10/20 21:37 Dose: 50 mg Documented by: Vital Signs & Weight: Vital Signs Temp Pulse Resp BP BP Pulse Ox 01/11/20 11:55 97.5 F L 78 15 144/67 H 97 01/11/20 07:19 97.3 F L 68 14 148/90 H 97 01/11/20 03:54 98.3 F 62 15 132/67 98 Weight 180 lb 14.4 oz I/O: I/O 01/10/20 01/11/20 01/12/20 06:59 06:59 06:59 Intake Total 1200 480 280 Output Total 1150 500 450 Balance 50 -20 -170 - Quality Measures Condition: Atrial Fibrillation/Flutter (hx or current) - Physical Exam General: alert & oriented x3, appears well, no apparent distress HEENT: normocephaly Neck: no JVD/HJR Cardiology: no murmur, irregularly irregular Lungs: clear to auscultation, no wheezes, no rales Neurology: grossly intact Abdomen: unremarkable, soft, non-tender Extremities: warm Skin: device site stable w/o swelling Musculoskeletal: no pain - Chadsvasc Risk factors Congestive heart failure: 1 Hypertension: 1 Age >75: 2 Vascular disease: 1 Risk Score: 5 - Labs Result Diagrams: 01/09/20 04:27 01/09/20 04:27 - EKG Interpretation EKG Method: Telemetry EKG shows: Atrial fibrillation, other (In termittetn pacing) - Device Device: dual, pacemaker Device Result: Medtronic - Assessment/Plan Assessment/Plan: ASSESSMENT AND PLAN: Mr. Mesa is a pleasant 74-year-old man with prior history of persisting atrial fibrillation, although it was paroxysmal in the past. He has a dual-chamber pacemaker implantation and has tachy-elzbieta syndrome and history of atrioventricular block. He did have a moderate amount of ventricular pacing, Currenly only 14% possibly due to increasing atrial fibrillation and ventricular rate. Currently admitted with diastolic heart failure exacerbation with dyspnea, which I suspect partially related to his atrial fibrillation with rapid rates and in turn also increases his rate response. He has not been taking his medication diltiazem, which was increased by at his last visit. He had some poor response to some medications like amiodarone by history. His problems are,: 1. Acute on chronic diastolic heart failure. a. A 2D echo from 06/18/2019 reveals LVEF of 60% to 65%, mildly enlarged left atrium, mild aortic valve stenosis, mild mitral regurgitation, [id number] aortic valve insufficiency. 2. Persisting atrial fibrillation. a. Prior history of an amiodarone therapy with pulmonary fibrosis. b. Currently on rate controlling strategy. 3. History of paroxysmal AV block prompting a dual-chamber pacemaker implantation on 06/19/2019 with a Medtronic Advisa dual-chamber device. 4. CHADS-VASc score with coronary vascular disease, prior stents and age, diastolic heart failure, hypertension. 5. On Eliquis therapy. We discussed potential treatment options. Restoring sinus rhythm would be optimal, but antiarrhythmic choices are limited. Had pulmonary fibrosis with amiodarone and has prolonged QT on EKG. Class 1c drugs are not optimal hence his history of CAD. If rate control is difficult, a Bi-V pacemaker upgrade and AV hemant ablation is a possibility, but I would like to exhaust medical options prior. Alternatively he could be considered for pulmonary venous isolation procedure as outpatient although so far he has difficulty to comprehendING this option. Consider a repeat echocardiogram to assess his current LV function hence history of significant RV pacing. 01/11/20: Appears less dyspnic. VR are well controlled. Fixated on his intermittent neck pain. Continue rate controlling measures for now.
[2020-01-11] MEDS: Diltiazem 125 MG in Sodium Chloride 0.9% 100 ML IVPB SCH (16:49)
[2020-01-11] MEDS: traZODone HCl 50 MG TAB PO SCH (22:12)
[2020-01-11] MEDS: diphenhydrAMINE 25 MG CAP PO PRN (22:12)
[2020-01-11] MEDS: Atorvastatin Calcium 40 MG TAB PO SCH (22:12)
[2020-01-12] MEDS: Acetaminophen 325 MG TAB PO PRN ×2 (03:25→14:26)
[2020-01-12] MEDS: Torsemide 20 MG TAB PO SCH (09:18)
[2020-01-12] MEDS: Nitroglycerin 2% Ointment 1 INCH/1 GM Packet TOP SCH ×2 (09:18→15:26)
[2020-01-12] MEDS: Famotidine 20 MG TAB PO SCH ×2 (09:18→21:53)
[2020-01-12] MEDS: Aspirin 81 mg Enteric Coated Tablet PO SCH (09:18)
[2020-01-12] MEDS: Milk Of Magnesia 30 ML UDCUP PO PRN (12:48)
[2020-01-12] MEDS: Diltiazem 125 MG in Sodium Chloride 0.9% 100 ML IVPB SCH (15:25)
--- NOTE | 2020-01-12 16:02 | PDOC.CPN ---
- Subjective Date: 01/12/20 Time: 13:40 Interval history: No overnight events. Patient resting comfortably. Says breathing stable. - Review of Systems General: denies: fever/chills, weight/appetite/sleep changes, night sweats, fatigue Respiratory: reports: cough, shortness of breath Cardiovascular: denies: chest pain, palpitation, edema, paroxysmal nocturnal dyspnea, orthopnea Gastrointestinal: denies: nausea, vomiting, diarrhea, constipation, abd pain, GI bleeding Musculoskeletal: denies: pain, tenderness, stiffness, swelling, arthritis/arthralgias Neurological: denies: numbness, syncope, seizure, weakness - Objective Allergies/Adverse Reactions: Allergies Allergy/AdvReac Type Severity Reaction Status Date / Time amiodarone Allergy Severe Verified 01/09/20 04:12 Visit Medications: Current Medications Acetaminophen (Acetaminophen 325 Mg Tab) 650 mg PO Q4H PRN PRN Reason: Headache/Fever/Mild Pain (1-3) Last Admin: 01/12/20 14:26 Dose: 650 mg Documented by: Al Hydroxide/Mg Hydroxide (Mag-Al 1200 Mg/1200 Mg/30 Ml Udcup) 30 ml PO Q4H PRN PRN Reason: Heartburn or Indigestion Last Admin: 01/10/20 10:29 Dose: 30 ml Documented by: Alprazolam (Alprazolam 0.25 Mg Tab) 0.25 mg PO BIDPRN PRN PRN Reason: Anxiety Aspirin (Aspirin 81 Mg Enteric Coated Tablet) 81 mg PO DAILY [facility] Last Admin: 01/12/20 09:18 Dose: 81 mg Documented by: Atorvastatin Calcium (Atorvastatin Calcium 40 Mg Tab) 40 mg PO [facility] Last Admin: 01/11/20 22:12 Dose: 40 mg Documented by: Diphenhydramine HCl (Diphenhydramine 25 Mg Cap) 25 mg PO HSPRN PRN PRN Reason: Insomnia Last Admin: 01/11/20 22:12 Dose: 25 mg Documented by: Famotidine (Famotidine 20 Mg Tab) 20 mg PO BID [facility] Last Admin: 01/12/20 09:18 Dose: 20 mg Documented by: Diltiazem HCl 125 mg/ Sodium (Chloride) 125 mls @ 5 mls/hr IVPB INF [facility]; Protocol Last Admin: 01/12/20 15:25 Dose: 125 mls Documented by: Lidocaine HCl (Lidocaine Viscous [place] 2% 15 Ml Ud Cup) 15 ml SSW Q4H PRN PRN Reason: MOUTH PAIN Last Admin: 01/10/20 23:06 Dose: 15 ml Documented by: Magnesium Hydroxide (Milk Of Magnesia 30 Ml Udcup) 30 ml PO Q8H PRN PRN Reason: Constipation Last Admin: 01/12/20 12:48 Dose: 30 ml Documented by: Melatonin (Melatonin 3 Mg Tab) 3 mg PO HS PRN PRN Reason: Insomnia Metoprolol Succinate (Metoprolol Succinate Xl 25 Mg Tab) 25 mg PO DAILY [facility] Last Admin: 01/12/20 09:18 Dose: 25 mg Documented by: Nitroglycerin (Nitroglycerin 2% Ointment 1 Inch/1 Gm Packet) 0.5 inch TOP 0700,1500,2300 [facility] Last Admin: 01/12/20 15:26 Dose: 0.5 inch Documented by: Sodium Chloride (Flush - Normal Saline 10 Ml Syringe) 10 ml IVF Q12HR [facility] Last Admin: 01/12/20 09:18 Dose: Not Given Documented by: Sodium Chloride (Flush - Normal Saline 10 Ml Syringe) 10 ml IVF PRN PRN PRN Reason: Saline Flush Torsemide (Torsemide 20 Mg Tab) 40 mg PO DAILY [facility] Last Admin: 01/12/20 09:18 Dose: 40 mg Documented by: Trazodone HCl (Trazodone Hcl 50 Mg Tab) 50 mg PO HS [facility] Last Admin: 01/11/20 22:12 Dose: 50 mg Documented by: Vital Signs & Weight: Vital Signs Temp Pulse Resp BP Pulse Ox 01/12/20 15:40 97.6 F 60 16 138/75 97 01/12/20 12:10 98.1 F 75 16 141/64 H 95 01/12/20 07:50 98.2 F 68 16 124/80 95 Weight 177 lb 6.4 oz - Physical Exam General: alert & oriented x3, appears well, no apparent distress HEENT: mucus membranes moist Neck: supple neck Cardiac: regular rate and rhythm Lungs: no wheezes, decreased breath sounds Abdomen: soft, non-tender Extremities: no cyanosis, no edema Skin: clear Musculoskeletal: no pain - Labs Result Diagrams: 01/09/20 04:27 01/09/20 04:27 Troponin/CKMB CK-MB (CK-2) 7.6 ng/mL (0-6.6) H* 01/08/20 12:45 Troponin I 0.173 ng/mL (< 0.028) H 01/08/20 19:43 - Assessment/Plan Assessment/Plan: 1. Acute on chronic diastolic CHF 2. Persistent AF 3 s/p pacemaker 4. 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 Will try to wean gtt and trasition to po diltiazem. Not on ACT at this time. Mention of Eliquis in chart by EP. Will d/w TIMOTHY.
--- NOTE | 2020-01-12 16:18 | RAD ---
EXAM: Single view of the chest HISTORY: Shortness of breath COMPARISON: 01/08/2020 FINDINGS: Single view of the chest shows an enlarged cardiomediastinal silhouette. The pacemaker is unchanged in position. There is a small left pleural effusion with adjacent atelectasis versus infiltrate. Degenerative changes are seen in the spine and shoulders. There appear to be multiple rem ote right rib fractures. IMPRESSION: Left pleural effusion with adjacent atelectasis versus infiltrate.
--- NOTE | 2020-01-12 17:36 | PDOC.HOSPP ---
- Subjective Encounter Date: 01/12/20 Encounter Time: 11:00 Subjective: Patient seen for follow-up regarding atrial fibrillation. He denies chest pain or shortness of breath. - Objective Vital Signs & Weight: Vital Signs (12 hours) Temp Pulse Resp BP Pulse Ox 01/12/20 15:40 97.6 F 60 16 138/75 97 01/12/20 12:10 98.1 F 75 16 141/64 H 95 01/12/20 07:50 98.2 F 68 16 124/80 95 Weight Weight 177 lb 6.4 oz I&O: 01/11/20 01/12/20 01/13/20 06:59 06:59 06:59 Intake Total 480 811.6 Output Total 500 825 -.4 Result Diagrams: 01/09/20 04:27 01/09/20 04:27 Additional Labs: I reviewed patient's labs and MAR EKG Reviewed by me: Yes (V paced rhythm on telemetry) Hospitalist ROS - Review of Systems Cardiovascular: denies: chest pain, palpitations, orthopnea, paroxysmal noc. dyspnea, edema, light headedness Gastrointestinal: denies: nausea, vomiting, abdominal pain, diarrhea, constipation, melena, hematochezia - Medication Medications: Active Medications Generic Name Dose Route Start Last Admin Trade Name Freq PRN Reason Stop Dose Admin Acetaminophen 650 mg 01/08/20 22:50 01/12/20 14:26 Acetaminophen 325 Mg Tab PO 650 mg Q4H PRN Administration Headache/Fever/Mild Pain (1-3) Al Hydroxide/Mg Hydroxide 30 ml 01/08/20 22:50 01/10/20 10:29 Mag-Al 1200 Mg/1200 Mg/30 Ml Udcup PO 30 ml Q4H PRN Administration Heartburn or Indigestion Aspirin 81 mg 01/10/20 09:00 01/12/20 09:18 Aspirin 81 Mg Enteric Coated Tablet PO 81 mg DAILY [facility] Administration Atorvastatin Calcium 40 mg 01/09/20 21:00 01/11/20 22:12 Atorvastatin Calcium 40 Mg Tab PO 40 mg HS [facility] Administration Diphenhydramine HCl 25 mg 01/08/20 22:50 01/11/20 22:12 Diphenhydramine 25 Mg Cap PO 25 mg HSPRN PRN Administration Insomnia Famotidine 20 mg 01/08/20 09:00 01/12/20 09:18 Famotidine 20 Mg Tab PO 20 mg BID [facility] Administration Diltiazem HCl 125 mg/ Sodium 125 mls @ 5 mls/hr 01/09/20 18:45 01/12/20 15:25 Chloride IVPB 125 mls INF [facility] Administration Protocol 5 MG/HR Lidocaine HCl 15 ml 01/08/20 22:53 01/10/20 23:06 Lidocaine Viscous [place] 2% 15 Ml Ud Cup SSW 15 ml Q4H PRN Administration MOUTH PAIN Magnesium Hydroxide 30 ml 01/10/20 09:51 01/12/20 12:48 Milk Of Magnesia 30 Ml Udcup PO 30 ml Q8H PRN Administration Constipation Metoprolol Succinate 25 mg 01/09/20 09:00 01/12/20 09:18 Metoprolol Succinate Xl 25 Mg Tab PO 25 mg DAILY [facility] Administration Nitroglycerin 0.5 inch 01/08/20 23:00 01/12/20 15:26 Nitroglycerin 2% Ointment 1 Inch/1 Gm Packet TOP 0.5 inch 0700,1500,2300 [facility] Administration Sodium Chloride 10 ml 01/10/20 21:00 01/12/20 09:18 Flush - Normal Saline 10 Ml Syringe IVF Not Given Q12HR [facility] Torsemide 40 mg 01/10/20 09:00 01/12/20 09:18 Torsemide 20 Mg Tab PO 40 mg DAILY [facility] Administration Trazodone HCl 50 mg 01/09/20 21:00 01/11/20 22:12 Trazodone Hcl 50 Mg Tab PO 50 mg HS [facility] Administration - Exam General Appearance: awake alert Eye: anicteric sclera ENT: normocephalic atraumatic, no oropharyngeal lesions Neck: supple Heart: RRR Respiratory: CTAB Gastrointestinal: soft, non-tender Skin: no rashes Psychiatric: normal affect, normal behavior Hosp A/P - Plan -Assessment (1) Atrial fibrillation with RVR Status: Acute (2) CAD (coronary artery disease) Code(s): I25.10 - ATHSCL HEART DISEASE OF [place] CORONARY ARTERY W/O ANG PCTRS Status: Chronic Qualifiers: Coronary Disease-Associated Artery/Lesion type: unspecified vessel or lesion type [place] vs. transplanted heart: [place] heart Associated angina: without angina Qualified Code(s): I25.10 - Atherosclerotic heart disease of [place] coronary artery without angina pectoris (3) Dyslipidemia Code(s): E78.5 - HYPERLIPIDEMIA, UNSPECIFIED Status: Chronic (4) Hypertension Code(s): I10 - ESSENTIAL (PRIMARY) HYPERTENSION Status: Chronic Qualifiers: Hypertension type: essential hypertension Qualified Code(s): I10 - Essential (primary) hypertension - Plan * AFIB with RVR-rate controlled, patient is on Cardizem drip. * Throat tightness-continue Protonix, patient symptoms likely related to atrial fibrillation. * Elevated [id number] elevation myocardial infarction type II due to [place] ischemia from the AFIB * HTN- blood pressure- improved
[2020-01-12] MEDS: ALPRAZolam 0.25 MG TAB PO PRN (18:41)
[2020-01-12] MEDS: Atorvastatin Calcium 40 MG TAB PO SCH (21:53)
[2020-01-12] MEDS: Enoxaparin Sodium 80 MG/0.8 ML SYRINGE SC SCH (21:53)
[2020-01-12] MEDS: traZODone HCl 50 MG TAB PO SCH (21:53)
[2020-01-13] MEDS: Nitroglycerin 2% Ointment 1 INCH/1 GM Packet TOP SCH ×4 (01:53→22:10)
[2020-01-13 04:47] LABS: Anion Gap 12 mmol/L (10-20); BUN (Urea Nitrogen) 16 mg/dL (8.4-25.7); Calc. Creatinine Clearance 67 mL/min (70-130); Calcium 8.5 mg/dL (7.8-10.44); Carbon Dioxide 28 mmol/L (23-31); Chloride 102 mmol/L (98-107); Estimated GFR-MDRD 68; Glucose 112 mg/dL (83-110); Potassium 3.4 mmol/L (3.5-5.1); Sodium 139 mmol/L (136-145)
[2020-01-13 05:37] LABS: Band 5 % (5-11); Elliptocytes SLIGHT = 2-5 cells (100X) (0-1/hpf); Eosinophils 1 % (0-10); Hemoglobin 12.9 g/dL (14.0-18.0); Hypochromia SLIGHT = 6-15 cells (100X) (0-5/hpf); Lymphocytes 23 % (21-51); MDiff Complete? YES; Mean Corpuscular Hemoglobin 32.8 pg (27.0-31.0); Mean Corpuscular Volume 99.3 fL (78.0-98.0); Mean Platelet Volume 7.9 fL (7.4-10.4); Monocytes 16 % (0-10); Neutrophil 55 % (42-75); Platelet Count 280 thou/uL (130-400); Platelet Morphology Comment Appears Adequate; RBC Distribution Width 13.9 % (11.5-14.5); Red Blood Cell (RBC) Count 3.93 mill/uL (4.70-6.10); White Blood Cell (WBC) Count 11.2 thou/uL (4.8-10.8)
[2020-01-13] MEDS: Milk Of Magnesia 30 ML UDCUP PO PRN (07:48)
[2020-01-13] MEDS: Aspirin 81 mg Enteric Coated Tablet PO SCH (07:50)
[2020-01-13] MEDS: Torsemide 20 MG TAB PO SCH (07:50)
[2020-01-13] MEDS: Famotidine 20 MG TAB PO SCH ×2 (07:50→22:11)
[2020-01-13] MEDS: Enoxaparin Sodium 80 MG/0.8 ML SYRINGE SC SCH ×2 (07:51→22:11)
[2020-01-13] MEDS ORDERED: Diltiazem 125 MG in Sodium Chloride 0.9% 100 ML IVPB SCH (10:00)
--- NOTE | 2020-01-13 13:49 | PDOC.HOSPP ---
- Subjective Encounter Date: 01/13/20 Encounter Time: 09:00 Subjective: Patient seen for follow-up regarding atrial fibrillation. Reports feeling better today. Sensation of lump in the throat has resolved. - Objective Vital Signs & Weight: Vital Signs (12 hours) Temp Pulse Resp BP Pulse Ox 01/13/20 12:00 97.2 F L 67 15 117/54 L 97 01/13/20 11:44 97 01/13/20 08:00 97.5 F L 97 17 118/64 96 01/13/20 03:35 98.4 F 62 16 117/70 98 Weight Weight 182 lb 14.4 oz I&O: 01/12/20 01/13/20 01/14/20 06:59 06:59 06:59 Intake Total 811.6 Output Total 825 Balance -13.4 Result Diagrams: 01/13/20 04:16 01/13/20 04:16 Additional Labs: Labs and MAR reviewed by me EKG Reviewed by me: Yes (Electronic ventricular paced rhythm on telemetry) Hospitalist ROS - Review of Systems Constitutional: denies: fever, chills, sweats, weakness, malaise Respiratory: denies: cough, shortness of breath, SOB with excertion, pleuritic pain, wheezing Cardiovascular: denies: chest pain, palpitations, orthopnea, paroxysmal noc. dyspnea, edema, light headedness - Medication Medications: Active Medications Generic Name Dose Route Start Last Admin Trade Name Freq PRN Reason Stop Dose Admin Acetaminophen 650 mg 01/08/20 22:50 01/12/20 14:26 Acetaminophen 325 Mg Tab PO 650 mg Q4H PRN Administration Headache/Fever/Mild Pain (1-3) Al Hydroxide/Mg Hydroxide 30 ml 01/08/20 22:50 01/10/20 10:29 Mag-Al 1200 Mg/1200 Mg/30 Ml Udcup PO 30 ml Q4H PRN Administration Heartburn or Indigestion Alprazolam 0.25 mg 01/12/20 15:49 01/12/20 18:41 Alprazolam 0.25 Mg Tab PO 0.25 mg BIDPRN PRN Administration Anxiety Aspirin 81 mg 01/10/20 09:00 01/13/20 07:50 Aspirin 81 Mg Enteric Coated Tablet PO 81 mg DAILY [facility] Administration Atorvastatin Calcium 40 mg 01/09/20 21:00 01/12/20 21:53 Atorvastatin Calcium 40 Mg Tab PO 40 mg HS [facility] Administration Diltiazem HCl 120 mg 01/13/20 12:00 01/13/20 11:44 Diltiazem Cd 120 Mg Cap PO 01/13/20 14:00 120 mg 1200 [facility] Administration Diphenhydramine HCl 25 mg 01/08/20 22:50 01/11/20 22:12 Diphenhydramine 25 Mg Cap PO 25 mg HSPRN PRN Administration Insomnia Enoxaparin Sodium 80 mg 01/12/20 21:00 01/13/20 07:51 Enoxaparin Sodium 80 Mg/0.8 Ml Syringe SC 80 mg 0900,2100 [facility] Administration Famotidine 20 mg 01/08/20 09:00 01/13/20 07:50 Famotidine 20 Mg Tab PO 20 mg BID [facility] Administration Levofloxacin 750 mg/ Device 150 mls @ 100 mls/hr 01/12/20 20:00 01/12/20 21:53 IVPB 150 mls Q24HR [facility] Administration Lidocaine HCl 15 ml 01/08/20 22:53 01/10/20 23:06 Lidocaine Viscous [place] 2% 15 Ml Ud Cup SSW 15 ml Q4H PRN Administration MOUTH PAIN Magnesium Hydroxide 30 ml 01/10/20 09:51 01/13/20 07:48 Milk Of Magnesia 30 Ml Udcup PO 30 ml Q8H PRN Administration Constipation Metoprolol Succinate 25 mg 01/09/20 09:00 01/13/20 07:50 Metoprolol Succinate Xl 25 Mg Tab PO 25 mg DAILY [facility] Administration Nitroglycerin 0.5 inch 01/08/20 23:00 01/13/20 07:17 Nitroglycerin 2% Ointment 1 Inch/1 Gm Packet TOP 0.5 inch 0700,1500,2300 [facility] Administration Sodium Chloride 10 ml 01/10/20 21:00 01/13/20 07:51 Flush - Normal Saline 10 Ml Syringe IVF Not Given Q12HR [facility] Torsemide 40 mg 01/10/20 09:00 01/13/20 07:50 Torsemide 20 Mg Tab PO 40 mg DAILY [facility] Administration Trazodone HCl 50 mg 01/09/20 21:00 01/12/20 21:53 Trazodone Hcl 50 Mg Tab PO 50 mg HS [facility] Administration - Exam General Appearance: awake alert Eye: anicteric sclera ENT: no oropharyngeal lesions, moist mucosa Neck: supple Heart: RRR Respiratory: CTAB Gastrointestinal: soft, non-tender Skin: no rashes Psychiatric: normal affect, normal behavior Hosp A/P - Plan -Assessment (1) Atrial fibrillation with RVR Status: Acute (2) CAD (coronary artery disease) Code(s): I25.10 - ATHSCL HEART DISEASE OF [place] CORONARY ARTERY W/O ANG PCTRS Status: Chronic Qualifiers: Coronary Disease-Associated Artery/Lesion type: unspecified vessel or lesion type [place] vs. transplanted heart: [place] heart Associated angina: without angina Qualified Code(s): I25.10 - Atherosclerotic heart disease of [place] coronary artery without angina pectoris (3) Hypertension Code(s): I10 - ESSENTIAL (PRIMARY) HYPERTENSION Status: Chronic Qualifiers: Hypertension type: essential hypertension Qualified Code(s): I10 - Essential (primary) hypertension (4) Dyslipidemia Code(s): E78.5 - HYPERLIPIDEMIA, UNSPECIFIED Status: Chronic - Plan * AFIB with RVR-rate controlled, Cardizem drip being discontinued, patient being transitioned to oral calcium channel lyida. * Throat tightness-resolved, likely related to atrial fibrillation. * Elevated [id number] elevation myocardial infarction type II due to [place] ischemia from the AFIB * HTN-controlled and stable.
--- NOTE | 2020-01-13 14:28 | PDOC.CPN ---
- Subjective Date: 01/13/20 Time: 11:00 Interval history: Patient with various noncardiac complaints (staff issues, sinus) - Review of Systems General: denies: fever/chills, weight/appetite/sleep changes, night sweats, fatigue Respiratory: denies: cough, congestion, shortness of breath, exercise intolerance Cardiovascular: denies: chest pain, palpitation, edema, paroxysmal nocturnal dyspnea, orthopnea Gastrointestinal: denies: nausea, vomiting, diarrhea, constipation, abd pain, GI bleeding Musculoskeletal: denies: pain, tenderness, stiffness, swelling, arthritis/arthralgias Neurological: denies: numbness, syncope, seizure, weakness - Objective Allergies/Adverse Reactions: Allergies Allergy/AdvReac Type Severity Reaction Status Date / Time amiodarone Allergy Severe Verified 01/09/20 04:12 Visit Medications: Current Medications Acetaminophen (Acetaminophen 325 Mg Tab) 650 mg PO Q4H PRN PRN Reason: Headache/Fever/Mild Pain (1-3) Last Admin: 01/12/20 14:26 Dose: 650 mg Documented by: Al Hydroxide/Mg Hydroxide (Mag-Al 1200 Mg/1200 Mg/30 Ml Udcup) 30 ml PO Q4H PRN PRN Reason: Heartburn or Indigestion Last Admin: 01/10/20 10:29 Dose: 30 ml Documented by: Alprazolam (Alprazolam 0.25 Mg Tab) 0.25 mg PO BIDPRN PRN PRN Reason: Anxiety Last Admin: 01/12/20 18:41 Dose: 0.25 mg Documented by: Aspirin (Aspirin 81 Mg Enteric Coated Tablet) 81 mg PO DAILY [facility] Last Admin: 01/13/20 07:50 Dose: 81 mg Documented by: Atorvastatin Calcium (Atorvastatin Calcium 40 Mg Tab) 40 mg PO HS [facility] Last Admin: 01/12/20 21:53 Dose: 40 mg Documented by: Diltiazem HCl (Diltiazem Cd 120 Mg Cap) 120 mg PO DAILY [facility] Diphenhydramine HCl (Diphenhydramine 25 Mg Cap) 25 mg PO HSPRN PRN PRN Reason: Insomnia Last Admin: 01/11/20 22:12 Dose: 25 mg Documented by: Enoxaparin Sodium (Enoxaparin Sodium 80 Mg/0.8 Ml Syringe) 80 mg SC 0900,2100 [facility] Last Admin: 01/13/20 07:51 Dose: 80 mg Documented by: Famotidine (Famotidine 20 Mg Tab) 20 mg PO BID [facility] Last Admin: 01/13/20 07:50 Dose: 20 mg Documented by: Levofloxacin 750 mg/ Device 150 mls @ 100 mls/hr IVPB Q24HR [facility] Last Admin: 01/12/20 21:53 Dose: 150 mls Documented by: Diltiazem HCl 125 mg/ Sodium (Chloride) 125 mls @ 2.5 mls/hr IVPB INF [facility]; Protocol Lidocaine HCl (Lidocaine Viscous [place] 2% 15 Ml Ud Cup) 15 ml SSW Q4H PRN PRN Reason: MOUTH PAIN Last Admin: 01/10/20 23:06 Dose: 15 ml Documented by: Magnesium Hydroxide (Milk Of Magnesia 30 Ml Udcup) 30 ml PO Q8H PRN PRN Reason: Constipation Last Admin: 01/13/20 07:48 Dose: 30 ml Documented by: Melatonin (Melatonin 3 Mg Tab) 3 mg PO HS PRN PRN Reason: Insomnia Metoprolol Succinate (Metoprolol Succinate Xl 25 Mg Tab) 25 mg PO DAILY [facility] Last Admin: 01/13/20 07:50 Dose: 25 mg Documented by: Nitroglycerin (Nitroglycerin 2% Ointment 1 Inch/1 Gm Packet) 0.5 inch TOP 0700,1500,2300 [facility] Last Admin: 01/13/20 07:17 Dose: 0.5 inch Documented by: Sodium Chloride (Flush - Normal Saline 10 Ml Syringe) 10 ml IVF Q12HR [facility] Last Admin: 01/13/20 07:51 Dose: Not Given Documented by: Sodium Chloride (Flush - Normal Saline 10 Ml Syringe) 10 ml IVF PRN PRN PRN Reason: Saline Flush Torsemide (Torsemide 20 Mg Tab) 40 mg PO DAILY [facility] Last Admin: 01/13/20 07:50 Dose: 40 mg Documented by: Trazodone HCl (Trazodone Hcl 50 Mg Tab) 50 mg PO HS [facility] Last Admin: 01/12/20 21:53 Dose: 50 mg Documented by: Vital Signs & Weight: Vital Signs Temp Pulse Resp BP Pulse Ox 01/13/20 12:00 97.2 F L 67 15 117/54 L 97 01/13/20 11:44 97 01/13/20 08:00 97.5 F L 97 17 118/64 96 01/13/20 03:35 98.4 F 62 16 117/70 98 Weight 182 lb 14.4 oz - Physical Exam General: alert & oriented x3, appears well, no apparent distress HEENT: mucus membranes moist Neck: supple neck Cardiac: other (IRR) Lungs: normal exam, no wheeze, rales, rhonchi Neuro: grossly intact Abdomen: soft - Labs Result Diagrams: 01/13/20 04:16 01/13/20 04:16 Troponin/CKMB CK-MB (CK-2) 7.6 ng/mL (0-6.6) H* 01/08/20 12:45 Troponin I 0.173 ng/mL (< 0.028) H 01/08/20 19:43 - Assessment/Plan Assessment/Plan: 1. Acute on chronic diastolic CHF 2. Persistent AF 3 s/p pacemaker 4. NSTEMI - Type II Will transition IV Cardizem to po. On lovenox. ? change to Eliquis. Stable cardiac status at this time.
[2020-01-13] MEDS: Acetaminophen 325 MG TAB PO PRN (19:23)
[2020-01-13] MEDS: traZODone HCl 50 MG TAB PO SCH (22:10)
[2020-01-13] MEDS: Atorvastatin Calcium 40 MG TAB PO SCH (22:10)
[2020-01-14 04:53] LABS: Anion Gap 13 mmol/L (10-20); BUN (Urea Nitrogen) 16 mg/dL (8.4-25.7); Calc. Creatinine Clearance 70 mL/min (70-130); Calcium 8.6 mg/dL (7.8-10.44); Carbon Dioxide 26 mmol/L (23-31); Chloride 103 mmol/L (98-107); Estimated GFR-MDRD 69; Glucose 99 mg/dL (83-110); Potassium 3.6 mmol/L (3.5-5.1); Sodium 138 mmol/L (136-145)
[2020-01-14 04:59] LABS: Band 9 % (5-11); Eosinophils 4 % (0-10); Hemoglobin 13.3 g/dL (14.0-18.0); Lymphocytes 22 % (21-51); MDiff Complete? YES; Macrocytosis SLIGHT = 6-15 cells (100X) (0-5/hpf); Mean Corpuscular HGB CONC 32.3 g/dL (32.0-36.0); Mean Corpuscular Hemoglobin 32.3 pg (27.0-31.0); Mean Platelet Volume 7.7 fL (7.4-10.4); Monocytes 18 % (0-10); Neutrophil 47 % (42-75); Platelet Count 327 thou/uL (130-400); Platelet Morphology Comment Appears Adequate; Red Blood Cell (RBC) Count 4.11 mill/uL (4.70-6.10); White Blood Cell (WBC) Count 12.7 thou/uL (4.8-10.8)
[2020-01-14] MEDS: Nitroglycerin 2% Ointment 1 INCH/1 GM Packet TOP SCH ×3 (06:17→23:00)
[2020-01-14] MEDS: Torsemide 20 MG TAB PO SCH (07:32)
[2020-01-14] MEDS: Milk Of Magnesia 30 ML UDCUP PO PRN (07:33)
[2020-01-14] MEDS: Aspirin 81 mg Enteric Coated Tablet PO SCH (07:33)
[2020-01-14] MEDS: Enoxaparin Sodium 80 MG/0.8 ML SYRINGE SC SCH ×2 (07:33→20:10)
[2020-01-14] MEDS: Famotidine 20 MG TAB PO SCH ×2 (07:33→20:09)
[2020-01-14] MEDS: ALPRAZolam 0.25 MG TAB PO PRN ×2 (09:13→20:09)
[2020-01-14] MEDS: Acetaminophen 325 MG TAB PO PRN (12:26)
--- NOTE | 2020-01-14 13:24 | PDOC.EP ---
- Subjective Date: 01/14/20 Time: 13:21 Interval History: Feels fair. Reports neck pain/discomfort and that he is urinating frequently. Otherwise, no specific complaints. - Review of Systems Constitutional: denies: chills, sweats, weakness Respiratory: reports: other (throat pain). denies: cough, dry, hemoptysis, shortness of breath Cardiology: denies: chest pain, heart racing, light headedness, palpitations, passing out Gastrointestinal: denies: abdominal pain, constipation, nausea, vomitting Musculoskeletal: reports: neck pain. denies: unstable gait, falls - Objective Allergies/Adverse Reactions: Allergies Allergy/AdvReac Type Severity Reaction Status Date / Time amiodarone Allergy Severe Verified 01/09/20 04:12 Current Medications Acetaminophen (Acetaminophen 325 Mg Tab) 650 mg PO Q4H PRN PRN Reason: Headache/Fever/Mild Pain (1-3) Last Admin: 01/14/20 12:26 Dose: 650 mg Documented by: Al Hydroxide/Mg Hydroxide (Mag-Al 1200 Mg/1200 Mg/30 Ml Udcup) 30 ml PO Q4H PRN PRN Reason: Heartburn or Indigestion Last Admin: 01/10/20 10:29 Dose: 30 ml Documented by: Alprazolam (Alprazolam 0.25 Mg Tab) 0.25 mg PO BIDPRN PRN PRN Reason: Anxiety Last Admin: 01/14/20 09:13 Dose: 0.25 mg Documented by: Aspirin (Aspirin 81 Mg Enteric Coated Tablet) 81 mg PO DAILY [facility] Last Admin: 01/14/20 07:33 Dose: 81 mg Documented by: Atorvastatin Calcium (Atorvastatin Calcium 40 Mg Tab) 40 mg PO HS [facility] Last Admin: 01/13/20 22:10 Dose: 40 mg Documented by: Diltiazem HCl (Diltiazem Cd 120 Mg Cap) 120 mg PO DAILY [facility] Last Admin: 01/14/20 07:33 Dose: 120 mg Documented by: Diphenhydramine HCl (Diphenhydramine 25 Mg Cap) 25 mg PO HSPRN PRN PRN Reason: Insomnia Last Admin: 01/11/20 22:12 Dose: 25 mg Documented by: Enoxaparin Sodium (Enoxaparin Sodium 80 Mg/0.8 Ml Syringe) 80 mg SC 0900,2100 [facility] Last Admin: 01/14/20 07:33 Dose: 80 mg Documented by: Famotidine (Famotidine 20 Mg Tab) 20 mg PO BID [facility] Last Admin: 01/14/20 07:33 Dose: 20 mg Documented by: Levofloxacin 750 mg/ Device 150 mls @ 100 mls/hr IVPB Q24HR [facility] Last Admin: 01/13/20 22:10 Dose: 150 mls Documented by: Diltiazem HCl 125 mg/ Sodium (Chloride) 125 mls @ 2.5 mls/hr IVPB INF [facility]; Prot ocol Lidocaine HCl (Lidocaine Viscous [place] 2% 15 Ml Ud Cup) 15 ml SSW Q4H PRN PRN Reason: MOUTH PAIN Last Admin: 01/10/20 23:06 Dose: 15 ml Documented by: Magnesium Hydroxide (Milk Of Magnesia 30 Ml Udcup) 30 ml PO Q8H PRN PRN Reason: Constipation Last Admin: 01/14/20 07:33 Dose: 30 ml Documented by: Melatonin (Melatonin 3 Mg Tab) 3 mg PO HS PRN PRN Reason: Insomnia Metoprolol Succinate (Metoprolol Succinate Xl 25 Mg Tab) 25 mg PO DAILY [facility] Last Admin: 01/14/20 07:33 Dose: 25 mg Documented by: Nitroglycerin (Nitroglycerin 2% Ointment 1 Inch/1 Gm Packet) 0.5 inch TOP 0700,1500,2300 [facility] Last Admin: 01/14/20 06:17 Dose: 0.5 inch Documented by: Sodium Chloride (Flush - Normal Saline 10 Ml Syringe) 10 ml IVF Q12HR [facility] Last Admin: 01/14/20 07:34 Dose: 10 ml Documented by: Sodium Chloride (Flush - Normal Saline 10 Ml Syringe) 10 ml IVF PRN PRN PRN Reason: Saline Flush Torsemide (Torsemide 20 Mg Tab) 40 mg PO DAILY [facility] Last Admin: 01/14/20 07:32 Dose: 40 mg Documented by: Trazodone HCl (Trazodone Hcl 50 Mg Tab) 50 mg PO HS [facility] Last Admin: 01/13/20 22:10 Dose: 50 mg Documented by: Vital Signs & Weight: Vital Signs Temp Pulse Resp BP BP Pulse Ox 01/14/20 08:00 98.7 F 86 18 124/85 94 L 01/14/20 07:33 70 01/14/20 04:45 97.8 F 70 13 136/81 97 Weight 180 lb 1.6 oz I/O: I/O 01/13/20 01/14/20 01/15/20 06:59 06:59 06:59 Intake Total 757 Output Total 550 Balance 207 - Quality Measures Condition: Atrial Fibrillation/Flutter (hx or current) CV meds: Eliquis: Yes - Physical Exam General: alert & oriented x3, appears well, no apparent distress, affect appropriate HEENT: mucus membranes moist, normocephaly Neck: supple neck, midline trachea, no JVD/HJR, no lymphadenopathy Cardiology: PMI nondisplaced, irregularly irregular Lungs: clear to auscultation, normal breath sounds, no wheezes, no rhonchi, bibasilar rales Neurology: cranial nerve 2-12 intact, grossly intact, no lateralizing findings Abdomen: unremarkable, active bowel sounds, no pulsations/bruits - Chadsvasc Risk factors Hypertension: 1 Age >75: 2 Vascular disease: 1 Risk Score: 4 - Labs Result Diagrams: 01/14/20 04:22 01/14/20 04:22 - EKG Interpretation EKG Method: Telemetry EKG shows: Atrial fibrillation - Assessment/Plan Assessment/Plan: Mr. Mesa is a pleasant 74-year-old man with persisting atrial fibrillation, although it was paroxysmal in the past. 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 He did have a moderate amount of ventricular pacing, Currenly only 14% possibly due to increasing atrial fibrillation and ventricular rate. Currently admitted with diastolic heart failure exacerbation with dyspnea, which I suspect partially related to his atrial fibrillation with rapid rates. He has not been taking his medication diltiazem, which was increased by at his last visit. He had some poor pulmonary response to amiodarone by history. His problems are,: 1. Acute on chronic diastolic heart failure. a. A 2D echo from 06/18/2019 reveals LVEF of 60% to 65%, mildly enlarged left atrium, mild aortic valve stenosis, mild mitral regurgitation, [id number] aortic valve insufficiency. 2. Persisting atrial fibrillation. a. Prior history of an amiodarone therapy with pulmonary fibrosis. b. Currently on rate controlling strategy. 3. History of paroxysmal AV block prompting a dual-chamber pacemaker implantation on 06/19/2019 with a [employer] Advisa dual-chamber device. 4. CHADS-VASc score with coronary vascular disease, prior stents and age, diastolic heart failure, hypertension. a. On Eliquis therapy. We discussed potential treatment options. Restoring sinus rhythm would be optimal, but antiarrhythmic choices are limited. Had pulmonary fibrosis with amiodarone and has prolonged QT on EKG. Class 1c drugs are not optimal hence his history of CAD. If rate con trol is difficult, a Bi-V pacemaker upgrade and AV hemant ablation is a possibility, but I would like to exhaust medical options prior. Again discussed PVAI. He seems to understand this as an option somewhat better today but asks I speak with his daughter (Amina) who is involved in his care about options as well. PVAI could possibly be done as early as Tuesday while IP vs scheduled later as OP. If we cannot rate control him a CV could be done as well. Repeat echo ordered.
--- NOTE | 2020-01-14 18:06 | PDOC.HOSPP ---
- Subjective Encounter Date: 01/14/20 Encounter Time: 14:00 Subjective: Patient seen for follow-up regarding atrial fibrillation. He continues to have on and off runs of A. fib with RVR. - Objective Vital Signs & Weight: Vital Signs (12 hours) Temp Pulse Resp BP Pulse Ox 01/14/20 16:00 99.1 F 82 17 102/52 L 98 01/14/20 12:00 98.5 F 99 18 158/80 H 98 01/14/20 08:00 98.7 F 86 18 124/85 94 L 01/14/20 07:33 70 Weight Weight 180 lb 1.6 oz I&O: 01/13/20 01/14/20 01/15/20 06:59 06:59 06:59 Intake Total 757 Output Total 550 Balance 207 Result Diagrams: 01/14/20 04:22 01/14/20 04:22 Additional Labs: I reviewed patient's labs and MAR EKG Reviewed by me: Yes (A. fib with rapid ventricular response on telemetry) Hospitalist ROS - Review of Systems Cardiovascular: denies: chest pain, palpitations, orthopnea, paroxysmal noc. dyspnea, edema, light headedness Gastrointestinal: denies: nausea, vomiting, abdominal pain, diarrhea, const ipation, melena, hematochezia Musculoskeletal: denies: neck pain, shoulder pain, arm pain, hand pain, leg pain - Medication Medications: Active Medications Generic Name Dose Route Start Last Admin Trade Name Freq PRN Reason Stop Dose Admin Acetaminophen 650 mg 01/08/20 22:50 01/14/20 12:26 Acetaminophen 325 Mg Tab PO 650 mg Q4H PRN Administration Headache/Fever/Mild Pain (1-3) Al Hydroxide/Mg Hydroxide 30 ml 01/08/20 22:50 01/10/20 10:29 Mag-Al 1200 Mg/1200 Mg/30 Ml Udcup PO 30 ml Q4H PRN Administration Heartburn or Indigestion Alprazolam 0.25 mg 01/12/20 15:49 01/14/20 09:13 Alprazolam 0.25 Mg Tab PO 0.25 mg BIDPRN PRN Administration Anxiety Aspirin 81 mg 01/10/20 09:00 01/14/20 07:33 Aspirin 81 Mg Enteric Coated Tablet PO 81 mg DAILY MADAN Administration Atorvastatin Calcium 40 mg 01/09/20 21:00 01/13/20 22:10 Atorvastatin Calcium 40 Mg Tab PO 40 mg HS MADAN Administration Diltiazem HCl 120 mg 01/14/20 09:00 01/14/20 07:33 Diltiazem Cd 120 Mg Cap PO 120 mg DAILY MADAN Administration Diphenhydramine HCl 25 mg 01/08/20 22:50 01/11/20 22:12 Diphenhydramine 25 Mg Cap PO 25 mg HSPRN PRN Administration Insomnia Enoxaparin Sodium 80 mg 01/12/20 21:00 01/14/20 07:33 Enoxaparin Sodium 80 Mg/0.8 Ml Syringe SC 80 mg 0900,2100 MADAN Administration Famotidine 20 mg 01/08/20 09:00 01/14/20 07:33 Famotidine 20 Mg Tab PO 20 mg BID MADAN Administration Levofloxacin 750 mg/ Device 150 mls @ 100 mls/hr 01/12/20 20:00 01/13/20 22:10 IVPB 150 mls Q24HR MADAN Administration Lidocaine HCl 15 ml 01/08/20 22:53 01/10/20 23:06 Lidocaine Viscous [place] 2% 15 Ml Ud Cup SSW 15 ml Q4H PRN Administration MOUTH PAIN Magnesium Hydroxide 30 ml 01/10/20 09:51 01/14/20 07:33 Milk Of Magnesia 30 Ml Udcup PO 30 ml Q8H PRN Administration Constipation Nitroglycerin 0.5 inch 01/08/20 23:00 01/14/20 15:24 Nitroglycerin 2% Ointment 1 Inch/1 Gm Packet TOP 0.5 inch 0700,1500,2300 MADAN Administration Sodium Chloride 10 ml 01/10/20 21:00 01/14/20 07:34 Flush - Normal Saline 10 Ml Syringe IVF 10 ml Q12HR MADAN Administration Torsemide 40 mg 01/10/20 09:00 01/14/20 07:32 Torsemide 20 Mg Tab PO 40 mg DAILY MADAN Administration Trazodone HCl 50 mg 01/09/20 21:00 01/13/20 22:10 Trazodone Hcl 50 Mg Tab PO 50 mg HS MADAN Administration - Exam General Appearance: awake alert Eye: anicteric sclera ENT: moist mucosa Neck: supple Heart: irregular Respiratory: CTAB Gastrointestinal: soft, non-tender Skin: no rashes Psychiatric: normal affect, normal behavior Hosp A/P - Plan -Assessment (1) Atrial fibrillation with RVR Status: Acute (2) CAD (coronary artery disease) Code(s): I25.10 - ATHSCL HEART DISEASE OF [place] CORONARY ARTERY W/O ANG PCTRS Status: Chronic Qualifiers: Coronary Disease-Associated Artery/Lesion type: unspecified vessel or lesion type [place] vs. transplanted heart: [place] heart Associated angina: without angina Qualified Code(s): I25.10 - Atherosclerotic heart disease of [place] coronary artery without angina pectoris (3) Dyslipidemia Code(s): E78.5 - HYPERLIPIDEMIA, UNSPECIFIED Status: Chronic (4) Hypertension Code(s): I10 - ESSENTIAL (PRIMARY) HYPERTENSION Status: Chronic Qualifiers: Hypertension type: essential hypertension Qualified Code(s): I10 - Essential (primary) hypertension - Plan * AFIB with RVR-patient had rapid ventricular response today. He has been transitioned to oral diltiazem. * EP service following, patient may need ablation if he does not improve clinically. * Elevated [id number] elevation myocardial infarction type II due to [place] ischemia from the AFIB * HTN-controlled and stable.
[2020-01-14] MEDS: Atorvastatin Calcium 40 MG TAB PO SCH (20:09)
[2020-01-14] MEDS: traZODone HCl 50 MG TAB PO SCH (20:09)
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
[2020-01-15 05:23] LABS: Anion Gap 17 mmol/L (10-20); BUN (Urea Nitrogen) 13 mg/dL (8.4-25.7); Calc. Creatinine Clearance 72 mL/min (70-130); Calcium 9.1 mg/dL (7.8-10.44); Carbon Dioxide 24 mmol/L (23-31); Chloride 102 mmol/L (98-107); Estimated GFR-MDRD 73; Glucose 95 mg/dL (83-110); Potassium 4.2 mmol/L (3.5-5.1); Sodium 139 mmol/L (136-145)
[2020-01-15 05:31] LABS: Band 1 % (5-11); Eosinophils 2 % (0-10); Hemoglobin 13.8 g/dL (14.0-18.0); Lymphocytes 42 % (21-51); MDiff Complete? YES; Mean Corpuscular HGB CONC 31.6 g/dL (32.0-36.0); Mean Corpuscular Hemoglobin 31.5 pg (27.0-31.0); Mean Corpuscular Volume 99.6 fL (78.0-98.0); Mean Platelet Volume 7.7 fL (7.4-10.4); Monocytes 17 % (0-10); Neutrophil 37 % (42-75); Platelet Count 342 thou/uL (130-400); Platelet Morphology Comment Appears Adequate; RBC Distribution Width 13.8 % (11.5-14.5); Reactive Lymphocytes 1 % (0-10); Red Blood Cell (RBC) Count 4.37 mill/uL (4.70-6.10); White Blood Cell (WBC) Count 12.4 thou/uL (4.8-10.8)
[2020-01-15] MEDS: Nitroglycerin 2% Ointment 1 INCH/1 GM Packet TOP SCH ×3 (06:35→23:32)
[2020-01-15] MEDS: Milk Of Magnesia 30 ML UDCUP PO PRN (06:36)
--- NOTE | 2020-01-15 06:54 | EKG ---
Test Reason : Blood Pressure : / mmHG Vent. Rate : 072 BPM Atrial Rate : 070 BPM P-R Int : 000 ms QRS Dur : 162 ms QT Int : 478 ms P-R-T Axes : 000 209 049 degrees QTc Int : 523 ms Demand pacemaker; interpretation is based on intrinsic rhythm Atrial fibrillation with premature ventricular or aberrantly conducted complexes Right bundle branch block Abnormal ECG Confirmed by CATHERINE DUARTE MD ([id number] on 01/15/2020 6:54:15 AM Referred By: [facility] Confirmed By:CATHERINE DUARTE MD
[2020-01-15] MEDS: Famotidine 20 MG TAB PO SCH ×2 (09:23→20:20)
[2020-01-15] MEDS: Torsemide 20 MG TAB PO SCH (09:23)
[2020-01-15] MEDS: Aspirin 81 mg Enteric Coated Tablet PO SCH (09:25)
[2020-01-15] MEDS: Enoxaparin Sodium 80 MG/0.8 ML SYRINGE SC SCH ×2 (09:31→20:20)
--- NOTE | 2020-01-15 17:21 | PDOC.EP ---
- Subjective Date: 01/15/20 Time: 12:00 Interval History: + SOB. no heart racing or palpitations. - Review of Systems Constitutional: denies: chills, fever, malaise, sweats Respiratory: reports: shortness of breath. denies: cough, dry, hemoptysis Cardiology: denies: chest pain, edema, heart racing, light headedness, palpitations Gastrointestinal: denies: abdominal pain, constipation, nausea, vomitting Musculoskeletal: denies: unstable gait, falls, leg pain - Objective Allergies/Adverse Reactions: Allergies Allergy/AdvReac Type Severity Reaction Status Date / Time amiodarone Allergy Severe Verified 01/09/20 04:12 Current Medications Acetaminophen (Acetaminophen 325 Mg Tab) 650 mg PO Q4H PRN PRN Reason: Headache/Fever/Mild Pain (1-3) Last Admin: 01/14/20 12:26 Dose: 650 mg Documented by: Al Hydroxide/Mg Hydroxide (Mag-Al 1200 Mg/1200 Mg/30 Ml Udcup) 30 ml PO Q4H PRN PRN Reason: Heartburn or Indigestion Last Admin: 01/10/20 10:29 Dose: 30 ml Documented by: Alprazolam (Alprazolam 0.25 Mg Tab) 0.25 mg PO BIDPRN PRN PRN Reason: Anxiety Last Admin: 01/14/20 20:09 Dose: 0.25 mg Documented by: Aspirin (Aspirin 81 Mg Enteric Coated Tablet) 81 mg PO DAILY [facility] Last Admin: 01/15/20 09:25 Dose: 81 mg Documented by: Atorvastatin Calcium (Atorvastatin Calcium 40 Mg Tab) 40 mg PO HS [facility] Last Admin: 01/14/20 20:09 Dose: 40 mg Documented by: Diltiazem HCl (Diltiazem Cd 120 Mg Cap) 120 mg PO DAILY [facility] Last Admin: 01/15/20 09:23 Dose: 120 mg Documented by: Diphenhydramine HCl (Diphenhydramine 25 Mg Cap) 25 mg PO HSPRN PRN PRN Reason: Insomnia Last Admin: 01/11/20 22:12 Dose: 25 mg Documented by: Enoxaparin Sodium (Enoxaparin Sodium 80 Mg/0.8 Ml Syringe) 80 mg SC 0900,2100 [facility] Last Admin: 01/15/20 09:31 Dose: 80 mg Documented by: Famotidine (Famotidine 20 Mg Tab) 20 mg PO BID [facility] Last Admin: 01/15/20 09:23 Dose: 20 mg Documented by: Levofloxacin 750 mg/ Device 150 mls @ 100 mls/hr IVPB Q24HR [facility] Last Admin: 01/14/20 20:10 Dose: 150 mls Documented by: Diltiazem HCl 125 mg/ Sodium (Chloride) 125 mls @ 2.5 mls/hr IVPB INF MADAN; Protocol Lidocaine HCl (Lidocaine Viscous [place] 2% 15 Ml Ud Cup) 15 ml SSW Q4H PRN PRN Reason: MOUTH PAIN Last Admin: 01/10/20 23:06 Dose: 15 ml Documented by: Magnesium Hydroxide (Milk Of Magnesia 30 Ml Udcup) 30 ml PO Q8H PRN PRN Reason: Constipation Last Admin: 01/15/20 06:36 Dose: 30 ml Documented by: Melatonin (Melatonin 3 Mg Tab) 3 mg PO HS PRN PRN Reason: Insomnia Metoprolol Succinate (Metoprolol Succinate Xl 50 Mg Tab) 50 mg PO DAILY [facility] Last Admin: 01/15/20 09:26 Dose: 50 mg Documented by: Nitroglycerin (Nitroglycerin 2% Ointment 1 Inch/1 Gm Packet) 0.5 inch TOP 0700,1500,2300 [facility] Last Admin: 01/15/20 16:02 Dose: Not Given Documented by: Sodium Chloride (Flush - Normal Saline 10 Ml Syringe) 10 ml IVF Q12HR [facility] Last Admin: 01/15/20 09:31 Dose: 10 ml Documented by: Sodium Chloride (Flush - Normal Saline 10 Ml Syringe) 10 ml IVF PRN PRN PRN Reason: Saline Flush Torsemide (Torsemide 20 Mg Tab) 40 mg PO DAILY [facility] Last Admin: 01/15/20 09:23 Dose: 40 mg Documented by: Trazodone HCl (Trazodone Hcl 50 Mg Tab) 50 mg PO HS [facility] Last Admin: 01/14/20 20:09 Dose: 50 mg Documented by: Vital Signs & Weight: Vital Signs Temp Pulse Resp BP BP Pulse Ox 01/15/20 15:53 99.2 F 88 17 95/58 L 97 01/15/20 11:28 98.3 F 88 18 113/77 92 L 01/15/20 07:47 98.3 F 99 18 128/65 99 Weight 176 lb 12.8 oz I/O: I/O 01/14/20 01/15/20 01/16/20 06:59 06:59 06:59 Intake Total 757 Output Total 550 Balance 207 - Quality Measures Condition: Atrial Fibrillation/Flutter (hx or current) CV meds: Eliquis: Yes - Physical Exam General: alert & oriented x3, appears well, no apparent distress, speech clear, affect appropriate HEENT: mucus membranes moist, normocephaly Neck: supple neck, midline trachea, no lymphadenopathy Cardiology: regular rate, irregularly irregular Lungs: clear to auscultation, no wheeze, rales, rhonchi, decreased breath sounds Neurology: cranial nerve 2-12 intact, grossly intact, no lateralizing findings - Chadsvasc Risk factors Hypertension: 1 Age >75: 2 Vascular disease: 1 Risk Score: 4 - Labs Result Diagrams: 01/15/20 04:19 01/15/20 04:19 - EKG Interpretation EKG Method: Telemetry EKG shows: Atrial fibrillation - Assessment/Plan Assessment/Plan: 1. Acute on chronic diastolic heart failure. a. A 2D echo from 06/18/2019 reveals LVEF of 60% to 65%, mildly enlarged left atrium, mild aortic valve stenosis, mild mitral regurgitation, [id number] aortic valve insufficiency. b. 12/2019 echo LVEF 50-55% 2. Persisting atrial fibrillation. a. Prior history of an amiodarone therapy with pulmonary fibrosis. b. Currently on rate controlling strategy. c. hx QT prolongation 03/2019 3. History of paroxysmal AV block prompting a dual-chamber pacemaker implantation on 06/19/2019 with a [employer]onic Advisa dual-chamber device. 4. CHADS-VASc score with coronary vascular disease, prior stents and age, diastolic heart failure, hypertension. a. On Eliquis therapy. 2.5mg BID subtherapeutic No PVAI planned during this stay. Adequately rate controlled medically at this time. He is subtherapeutically dosed on his OAC. He is a poor historian and his daughter does not recall why he is on reduced dose. I have had extensive discussions with his daughter and reviewed his medically records at [facility] and [facility] as best I can to answer some of these questions. There was mention of a possible hx of some type of brain bleed but I cannot find documentation of this dating back to 2012. . He was placed on Eliquis 2.5mg BID in Mar 2019 at [facility], post PCI when he went into AF RVR. He had QT prolongation at that time. They started low dose, citing gum bleeding issues on full OAC. PVAI ablation cannot be considered unless he can be fully anticoagulated. At which point watchman can be discussed as an OP. AV node ablation has been discussed if we cannot maintain his rate control with oral medications, but should be avoided unless necessary. His daughter has significant concerns about his compliance with medications at home and, ultimately, the AV node ablation route may be the only feasible option. I put in a case management consult to see if they can help arranging home health that could help with medication compliance.
--- NOTE | 2020-01-15 17:46 | PDOC.HOSPP ---
- Subjective Encounter Date: 01/15/20 Encounter Time: 11:00 Subjective: Patient seen for follow-up regarding atrial fibrillation. He denies chest pain, shortness of breath or palpitations. - Objective Vital Signs & Weight: Vital Signs (12 hours) Temp Pulse Resp BP BP Pulse Ox 01/15/20 15:53 99.2 F 88 17 95/58 L 97 01/15/20 11:28 98.3 F 88 18 113/77 92 L 01/15/20 07:47 98.3 F 99 18 128/65 99 Weight Weight 176 lb 12.8 oz I&O: 01/14/20 01/15/20 01/16/20 06:59 06:59 06:59 Intake Total 757 Output Total 550 Balance 207 Result Diagrams: 01/15/20 04:19 01/15/20 04:19 Additional Labs: Labs and MAR reviewed by me EKG Reviewed by me: Yes (Telemetry shows A. fib) Hospitalist ROS - Review of Systems Constitutional: denies: fever, chills, sweats, weakness, malaise Respiratory: denies: cough, shortness of breath, SOB with excertion, pleuritic pain, wheezing Cardiovascular: denies: chest pain, palpitations, orthopnea, paroxysmal noc. dyspnea, edema, light headedness - Medication Medications: Active Medications Generic Name Dose Route Start Last Admin Trade Name Freq PRN Reason Stop Dose Admin Acetaminophen 650 mg 01/08/20 22:50 01/14/20 12:26 Acetaminophen 325 Mg Tab PO 650 mg Q4H PRN Administration Headache/Fever/Mild Pain (1-3) Al Hydroxide/Mg Hydroxide 30 ml 01/08/20 22:50 01/10/20 10:29 Mag-Al 1200 Mg/1200 Mg/30 Ml Udcup PO 30 ml Q4H PRN Administration Heartburn or Indigestion Alprazolam 0.25 mg 01/12/20 15:49 01/14/20 20:09 Alprazolam 0.25 Mg Tab PO 0.25 mg BIDPRN PRN Administration Anxiety Aspirin 81 mg 01/10/20 09:00 01/15/20 09:25 Aspirin 81 Mg Enteric Coated Tablet PO 81 mg DAILY MADAN Administration Atorvastatin Calcium 40 mg 01/09/20 21:00 01/14/20 20:09 Atorvastatin Calcium 40 Mg Tab PO 40 mg HS MADAN Administration Diltiazem HCl 120 mg 01/14/20 09:00 01/15/20 09:23 Diltiazem Cd 120 Mg Cap PO 120 mg DAILY MADAN Administration Diphenhydramine HCl 25 mg 01/08/20 22:50 01/11/20 22:12 Diphenhydramine 25 Mg Cap PO 25 mg HSPRN PRN Administration Insomnia Enoxaparin Sodium 80 mg 01/12/20 21:00 01/15/20 09:31 Enoxaparin Sodium 80 Mg/0.8 Ml Syringe SC 80 mg 0900,2100 MADAN Administration Famotidine 20 mg 01/08/20 09:00 01/15/20 09:23 Famotidine 20 Mg Tab PO 20 mg BID MADAN Administration Levofloxacin 750 mg/ Device 150 mls @ 100 mls/hr 01/12/20 20:00 01/14/20 20:10 IVPB 150 mls Q24HR MADAN Administration Lidocaine HCl 15 ml 01/08/20 22:53 01/10/20 23:06 Lidocaine Viscous [place] 2% 15 Ml Ud Cup SSW 15 ml Q4H PRN Administration MOUTH PAIN Magnesium Hydroxide 30 ml 01/10/20 09:51 01/15/20 06:36 Milk Of Magnesia 30 Ml Udcup PO 30 ml Q8H PRN Administration Constipation Metoprolol Succinate 50 mg 01/15/20 09:00 01/15/20 09:26 Metoprolol Succinate Xl 50 Mg Tab PO 50 mg DAILY MADAN Administration Nitroglycerin 0.5 inch 01/08/20 23:00 01/15/20 16:02 Nitroglycerin 2% Ointment 1 Inch/1 Gm Packet TOP Not Given 0700,1500,2300 MADAN Sodium Chloride 10 ml 01/10/20 21:00 01/15/20 09:31 Flush - Normal Saline 10 Ml Syringe IVF 10 ml Q12HR MADAN Administration Torsemide 40 mg 01/10/20 09:00 01/15/20 09:23 Torsemide 20 Mg Tab PO 40 mg DAILY MADAN Administration Trazodone HCl 50 mg 01/09/20 21:00 01/14/20 20:09 Trazodone Hcl 50 Mg Tab PO 50 mg HS MADAN Administration - Exam General Appearance: awake alert Eye: anicteric sclera ENT: moist mucosa Neck: supple Heart: irregular Respiratory: CTAB Gastrointestinal: soft, non-tender Extremities: no edema Skin: no rashes Psychiatric: normal affect, normal behavior Hosp A/P - Plan -Assessment (1) Atrial fibrillation with RVR Status: Acute (2) CAD (coronary artery disease) Code(s): I25.10 - ATHSCL HEART DISEASE OF [place] CORONARY ARTERY W/O ANG PCTRS Status: Chronic Qualifiers: Coronary Disease-Associated Artery/Lesion type: unspecified vessel or lesion type [place] vs. transplanted heart: [place] heart Associated angina: without angina Qualified Code(s): I25.10 - Atherosclerotic heart disease of [place] coronary artery without angina pectoris (3) Dyslipidemia Code(s): E78.5 - HYPERLIPIDEMIA, UNSPECIFIED Status: Chronic (4) Hypertension Code(s): I10 - ESSENTIAL (PRIMARY) HYPERTENSION Status: Chronic Qualifiers: Hypertension type: essential hypertension Qualified Code(s): I10 - Essential (primary) hypertension - Plan * AFIB with RVR-ventricular response is controlled, continue oral calcium channel lydia. * EP service following, patient may need ablation as outpatient. * Elevated [id number] elevation myocardial infarction type II due to [place] ischemia from the AFIB * HTN-controlled and stable. * Likely home in 24 to 48 hours.
[2020-01-15] MEDS: ALPRAZolam 0.25 MG TAB PO PRN (20:19)
[2020-01-15] MEDS: traZODone HCl 50 MG TAB PO SCH (20:20)
[2020-01-15] MEDS: Atorvastatin Calcium 40 MG TAB PO SCH (20:20)
[2020-01-16] MEDS: Milk Of Magnesia 30 ML UDCUP PO PRN (06:32)
[2020-01-16] MEDS: Nitroglycerin 2% Ointment 1 INCH/1 GM Packet TOP SCH ×3 (06:32→23:23)
[2020-01-16] MEDS: Torsemide 20 MG TAB PO SCH (09:38)
[2020-01-16] MEDS: Aspirin 81 mg Enteric Coated Tablet PO SCH (09:39)
[2020-01-16] MEDS: Enoxaparin Sodium 80 MG/0.8 ML SYRINGE SC SCH (09:39)
[2020-01-16] MEDS: Famotidine 20 MG TAB PO SCH ×2 (09:39→20:17)
--- NOTE | 2020-01-16 12:20 | PDOC.EP ---
- Subjective Date: 01/16/20 Time: 12:16 Interval History: AF with RVR on rate control. + SOB, intermittent but otherwise feels well. - Review of Systems Constitutional: denies: chills, fever, sweats, weakness Respiratory: reports: shortness of breath. denies: cough, dry, hemoptysis, wheezing Cardiology: denies: chest pain, edema, heart racing, light headedness Gastrointestinal: denies: abdominal pain, constipation, nausea, vomitting Musculoskeletal: denies: unstable gait, leg pain - Objective Allergies/Adverse Reactions: Allergies Allergy/AdvReac Type Severity Reaction Status Date / Time amiodarone Allergy Severe Verified 01/09/20 04:12 Current Medications Acetaminophen (Acetaminophen 325 Mg Tab) 650 mg PO Q4H PRN PRN Reason: Headache/Fever/Mild Pain (1-3) Last Admin: 01/14/20 12:26 Dose: 650 mg Documented by: Al Hydroxide/Mg Hydroxide (Mag-Al 1200 Mg/1200 Mg/30 Ml Udcup) 30 ml PO Q4H PRN PRN Reason: Heartburn or Indigestion Last Admin: 01/10/20 10:29 Dose: 30 ml Documented by: Alprazolam (Alprazolam 0.25 Mg Tab) 0.25 mg PO BIDPRN PRN PRN Reason: Anxiety Last Admin: 01/15/20 20:19 Dose: 0.25 mg Documented by: Aspirin (Aspirin 81 Mg Enteric Coated Tablet) 81 mg PO DAILY [facility] Last Admin: 01/16/20 09:39 Dose: 81 mg Documented by: Atorvastatin Calcium (Atorvastatin Calcium 40 Mg Tab) 40 mg PO HS [facility] Last Admin: 01/15/20 20:20 Dose: 40 mg Documented by: Diltiazem HCl (Diltiazem Cd 120 Mg Cap) 120 mg PO DAILY [facility] Last Admin: 01/16/20 09:39 Dose: 120 mg Documented by: Diphenhydramine HCl (Diphenhydramine 25 Mg Cap) 25 mg PO HSPRN PRN PRN Reason: Insomnia Last Admin: 01/11/20 22:12 Dose: 25 mg Documented by: Enoxaparin Sodium (Enoxaparin Sodium 80 Mg/0.8 Ml Syringe) 80 mg SC 0900,2100 [facility] Last Admin: 01/16/20 09:39 Dose: 80 mg Documented by: Famotidine (Famotidine 20 Mg Tab) 20 mg PO BID [facility] Last Admin: 01/16/20 09:39 Dose: 20 mg Documented by: Levofloxacin 750 mg/ Device 150 mls @ 100 mls/hr IVPB Q24HR [facility] Last Admin: 01/15/20 20:20 Dose: 150 mls Documented by: Diltiazem HCl 125 mg/ Sodium (Chloride) 125 mls @ 2.5 mls/hr IVPB INF [facility]; Protocol Lidocaine HCl (Lidocaine Viscous [place] 2% 15 Ml Ud Cup) 15 ml SSW Q4H PRN PRN Reason: MOUTH PAIN Last Admin: 01/10/20 23:06 Dose: 15 ml Documented by: Magnesium Hydroxide (Milk Of Magnesia 30 Ml Udcup) 30 ml PO Q8H PRN PRN Reason: Constipation Last Admin: 01/16/20 06:32 Dose: 30 ml Documented by: Melatonin (Melatonin 3 Mg Tab) 3 mg PO HS PRN PRN Reason: Insomnia Metoprolol Succinate (Metoprolol Succinate Xl 50 Mg Tab) 50 mg PO DAILY [facility] Last Admin: 01/16/20 09:39 Dose: 50 mg Documented by: Nitroglycerin (Nitroglycerin 2% Ointment 1 Inch/1 Gm Packet) 0.5 inch TOP 0700,1500,2300 [facility] Last Admin: 01/16/20 06:32 Dose: 0.5 inch Documented by: Sodium Chloride (Flush - Normal Saline 10 Ml Syringe) 10 ml IVF Q12HR [facility] Last Admin: 01/16/20 09:39 Dose: 10 ml Documented by: Sodium Chloride (Flush - Normal Saline 10 Ml Syringe) 10 ml IVF PRN PRN PRN Reason: Saline Flush Torsemide (Torsemide 20 Mg Tab) 40 mg PO DAILY [facility] Last Admin: 01/16/20 09:38 Dose: 40 mg Documented by: Trazodone HCl (Trazodone Hcl 50 Mg Tab) 50 mg PO HS [facility] Last Admin: 01/15/20 20:20 Dose: 50 mg Documented by: Vital Signs & Weight: Vital Signs Temp Pulse Resp BP BP Pulse Ox 01/16/20 11:33 97.6 F 75 17 144/87 H 95 01/16/20 07:59 98.8 F 103 H 18 123/77 97 01/16/20 04:00 97.8 F 65 20 125/67 98 Weight 174 lb 8 oz I/O: I/O 01/15/20 01/16/20 01/17/20 06:59 06:59 06:59 Intake Total 800 Output Total 1050 Balance -250 - Quality Measures Condition: Atrial Fibrillation/Flutter (hx or current) CV meds: Eliquis: Yes - Physical Exam General: alert & oriented x3, appears well, no apparent distress, speech clear HEENT: mucus membranes moist Neck: supple neck, midline trachea, no lymphadenopathy Cardiology: regular rate, irregularly irregular Lungs: clear to auscultation, no wheeze, rales, rhonchi, decreased breath sounds Neurology: cranial nerve 2-12 intact, grossly intact, no lateralizing findings Abdomen: unremarkable, active bowel sounds, no pulsations/bruits - Chadsvasc Risk factors Hypertension: 1 Age >75: 2 Vascular disease: 1 Risk Score: 4 - Labs Result Diagrams: 01/15/20 04:19 01/15/20 04:19 - EKG Interpretation EKG Method: Telemetry EKG shows: Atrial fibrillation - Assessment/Plan Assessment/Plan: 1. Acute on chronic diastolic heart failure. a. A 2D echo from 06/18/2019 reveals LVEF of 60% to 65%, mildly enlarged left atrium, mild aortic valve stenosis, mild mitral regurgitation, [id number] aortic valve insufficiency. b. 12/2019 echo LVEF 50-55% 2. Persisting atrial fibrillation. a. Prior history of an amiodarone therapy with pulmonary fibrosis. b. Currently on rate controlling strategy. c. hx QT prolongation 03/2019 3. History of paroxysmal AV block prompting a dual-chamber pacemaker implantatio n on 06/19/2019 with a Medtronic Advisa dual-chamber device. 4. CHADS-VASc score with coronary vascular disease, prior stents and age, diastolic heart failure, hypertension. a. On Eliquis therapy. 2.5mg BID subtherapeutic Increasing diltiazem to improve rate control. No good antiarrhythmic options and I doubt these would offer terminal block assembler success. Best option is for OP PVAI after 30 days OAC with eliquis 5mg BID. If that fails to control his rhythm the only other option is AV node ablation. NSVT x 4 beats on tele. Asymptomatic with normal EF. On Metoprolol. Defer to cardiology if further ischemic workup is needed. s/p BARBY x 2 to LAD in Mar 2019 *Patient supports history of spontaneous brain bleed of some sort approximately 10 yrs ago. He is unable to provide more detail than this but he has been doing well on full Lovenox.
[2020-01-16] MEDS: Acetaminophen 325 MG TAB PO PRN (15:53)
[2020-01-16] MEDS ORDERED: Diltiazem HCl SR 90 mg Capsule PO SCH (17:15)
--- NOTE | 2020-01-16 17:16 | PDOC.HOSPP ---
- Subjective Encounter Date: 01/16/20 Encounter Time: 10:00 Subjective: Patient seen for follow-up regarding atrial fibrillation. He denies chest pain or shortness of breath. - Objective Vital Signs & Weight: Vital Signs (12 hours) Temp Pulse Resp BP BP Pulse Ox 01/16/20 15:49 97.9 F 18 114/71 97 01/16/20 13:35 95 01/16/20 11:33 97.6 F 75 17 144/87 H 95 01/16/20 07:59 98.8 F 103 H 18 123/77 97 Weight Weight 174 lb 8 oz I&O: 01/15/20 01/16/20 01/17/20 06:59 06:59 06:59 Intake Total 800 Output Total 1050 Balance -250 Result Diagrams: 01/15/20 04:19 01/15/20 04:19 Additional Labs: I reviewed patient's labs and MAR EKG Reviewed by me: Yes (A. fib, 4 beat NSVT on telemetry) Hospitalist ROS - Review of Systems Cardiovascular: denies: chest pain, palpitations, orthopnea, paroxysmal noc. dyspnea, edema, light headedness Gastrointestinal: denies: nausea, vomiting, abdominal pain, diarrhea, constipation, melena, hematochezia - Medication Medications: Active Medications Generic Name Dose Route Start Last Admin Trade Name Praveenq PRN Reason Stop Dose Admin Acetaminophen 650 mg 01/08/20 22:50 01/16/20 15:53 Acetaminophen 325 Mg Tab PO 650 mg Q4H PRN Administration Headache/Fever/Mild Pain (1-3) Al Hydroxide/Mg Hydroxide 30 ml 01/08/20 22:50 01/10/20 10:29 Mag-Al 1200 Mg/1200 Mg/30 Ml Udcup PO 30 ml Q4H PRN Administration Heartburn or Indigestion Alprazolam 0.25 mg 01/12/20 15:49 01/15/20 20:19 Alprazolam 0.25 Mg Tab PO 0.25 mg BIDPRN PRN Administration Anxiety Aspirin 81 mg 01/10/20 09:00 01/16/20 09:39 Aspirin 81 Mg Enteric Coated Tablet PO 81 mg DAILY [facility] Administration Atorvastatin Calcium 40 mg 01/09/20 21:00 01/15/20 20:20 Atorvastatin Calcium 40 Mg Tab PO 40 mg HS [facility] Administration Diphenhydramine HCl 25 mg 01/08/20 22:50 01/11/20 22:12 Diphenhydramine 25 Mg Cap PO 25 mg HSPRN PRN Administration Insomnia Famotidine 20 mg 01/08/20 09:00 01/16/20 09:39 Famotidine 20 Mg Tab PO 20 mg BID [facility] Administration Levofloxacin 750 mg/ Device 150 mls @ 100 mls/hr 01/12/20 20:00 01/15/20 20:20 IVPB 150 mls Q24HR [facility] Administration Lidocaine HCl 15 ml 01/08/20 22:53 01/10/20 23:06 Lidocaine Viscous [place] 2% 15 Ml Ud Cup SSW 15 ml Q4H PRN Administration MOUTH PAIN Magnesium Hydroxide 30 ml 01/10/20 09:51 01/16/20 06:32 Milk Of Magnesia 30 Ml Udcup PO 30 ml Q8H PRN Administration Constipation Metoprolol Succinate 50 mg 01/15/20 09:00 01/16/20 09:39 Metoprolol Succinate Xl 50 Mg Tab PO 50 mg DAILY [facility] Administration Nitroglycerin 0.5 inch 01/08/20 23:00 01/16/20 15:54 Nitroglycerin 2% Ointment 1 Inch/1 Gm Packet TOP Not Given 0700,1500,2300 [facility] Sodium Chloride 10 ml 01/10/20 21:00 01/16/20 09:39 Flush - Normal Saline 10 Ml Syringe IVF 10 ml Q12HR [facility] Administration Torsemide 40 mg 01/10/20 09:00 01/16/20 09:38 Torsemide 20 Mg Tab PO 40 mg DAILY [facility] Administration Trazodone HCl 50 mg 01/09/20 21:00 01/15/20 20:20 Trazodone Hcl 50 Mg Tab PO 50 mg HS [facility] Administration - Exam General Appearance: awake alert Eye: anicteric sclera ENT: moist mucosa Neck: supple Heart: irregular Respiratory: CTAB Gastrointestinal: soft, non-tender Skin: no rashes Psychiatric: normal affect, normal behavior Hosp A/P - Plan -Assessment (1) Atrial fibrillation with RVR Status: Acute (2) CAD (coronary artery disease) Code(s): I25.10 - ATHSCL HEART DISEASE OF [place] CORONARY ARTERY W/O ANG PCTRS Status: Chronic Qualifiers: Coronary Disease-Associated Artery/Lesion type: unspecified vessel or lesion type [place] vs. transplanted heart: [place] heart Associated angina: without angina Qualified Code(s): I25.10 - Atherosclerotic heart disease of [place] coronary artery without angina pectoris (3) Hypertension Code(s): I10 - ESSENTIAL (PRIMARY) HYPERTENSION Status: Chronic Qualifiers: Hypertension type: essential hypertension Qualified Code(s): I10 - Essential (primary) hypertension (4) Dyslipidemia Code(s): E78.5 - HYPERLIPIDEMIA, UNSPECIFIED Status: Chronic - Plan * AFIB with RVR-ventricular response is rate controlled, patient is on oral calcium channel lydia. * patient may need ablation as outpatient. * Will await cardiology opinion regarding NSVT. * non-ST elevation myocardial infarction type II due to Demand ischemia from the AFIB * HTN-controlled and stable. * Likely home in 24 to 48 hours.
[2020-01-16] MEDS ORDERED: Levalbuterol HCl 0.63 MG/3 ML NEB NEB SCH (17:45)
[2020-01-16] MEDS: Atorvastatin Calcium 40 MG TAB PO SCH (20:17)
[2020-01-16] MEDS: Apixaban 5 MG TAB PO SCH (20:17)
[2020-01-16] MEDS: traZODone HCl 50 MG TAB PO SCH (20:17)
[2020-01-16] MEDS: ALPRAZolam 0.25 MG TAB PO PRN (20:18)
[2020-01-17] MEDS: Nitroglycerin 2% Ointment 1 INCH/1 GM Packet TOP SCH ×2 (05:26→14:25)
[2020-01-17] MEDS: Acetaminophen 325 MG TAB PO PRN ×2 (05:26→15:16)
[2020-01-17] MEDS: Milk Of Magnesia 30 ML UDCUP PO PRN (05:28)
[2020-01-17] MEDS: Aspirin 81 mg Enteric Coated Tablet PO SCH (08:26)
[2020-01-17] MEDS: Famotidine 20 MG TAB PO SCH (08:26)
[2020-01-17] MEDS: Apixaban 5 MG TAB PO SCH (08:26)
[2020-01-17] MEDS: Torsemide 20 MG TAB PO SCH (08:27)
--- NOTE | 2020-01-17 13:12 | PDOC.DS.DS ---
Provider - Provider Date of Admission: 01/08/20 16:23 Date of Discharge: 01/17/20 Admitting Provider: Sterling Franz MD Consultations: Cardiology (Dr. Franco), Oncology (Ms. Steph Gleason), Other (Electrophysiology: Dr. Street) Primary Care Physician: OUT OF TOWN Course - Hospital Course Hospital Course: Discharge diagnosis: 1. Atrial fibrillation with rapid ventricular response 2. Nonsustained ventricular tachycardia 3. Non-ST elevation myocardial infarction type II secondary to demand ischemia from atrial fibrillation 4. Hypokalemia 5. COVID-19 PCR test negative 6. Monocytosis 7. Pneumonia 8. Pleural effusion 9. Diastolic congestive heart failure exacerbation, NYHA class III Hospital course: Patient is a pleasant 74-year-old gentleman who was admitted to the hospital on January 08, 2020 for atrial fibrillation with rapid ventricular response. Patient was reportedly not taking his diltiazem. Patient also complained of a sensation of lump in the throat 2 times a day. He was seen by cardiology and electrophysiology services. He received digoxin as well as metoprolol and was started on IV diltiazem. Was also started on anticoagulation. 2D echocardiogram showed left ventricle ejection fraction of 50 to 55%, moder ately enlarged right atrium, moderately dilated left atrium, normal left ventricular size, severe LVH, somewhat thickened aortic valve leaflets, mild aortic stenosis, mild aortic regurgitation, mild tricuspid regurgitation and pacer wire visualized in right ventricle. Hospitalist discussed with ENT service about patient's symptoms of throat tightness. It could be related to reflux of lisinopril. Lisinopril was discontinued. He was started on Protonix twice daily, increased from daily dose. Patient's heart rate continued to improve while on Cardizem drip, although he had recurrent episodes of sensation of lump in the throat. He was transitioned to oral calcium channel lydia. He had a 4 beat run of nonsustained ventricular tachycardia, which did not recur. He has been cleared for discharge by cardiology and electrophysiology services, with home health. He was seen by oncology service for elevated monocyte count. They would like to follow-up with him as outpatient. Chest x-ray done on January 11 because of shortness of breath showed a left- sided pleural effusion with adjacent atelectasis versus infiltrate. Because she also had leukocytosis, she was treated for pneumonia. Many thanks for allowing me to participate in your patient's care. Please feel free to contact me with any questions or concerns. Resuscitation Status: 01/08/20 17:50 Resuscitation Status Routine Resuscitation Status: FULL: Full Resuscitation - Labs Lab Results: 01/15/20 04:19 01/15/20 04:19 - Physical Exam Vitals: Vital Signs (12 hours) Temp Pulse Resp BP BP Pulse Ox 01/17/20 11:45 98.4 F 70 18 135/70 98 01/17/20 08:43 100 01/17/20 07:38 97.8 F 79 24 H 135/58 L 100 01/17/20 04:00 97.6 F 80 20 113/59 L 98 Weight Weight 175 lb 14.4 oz Physical Exam: The patient was seen and examined on the day of discharge. Problem - Time spent with Patient (mins): 33 Plan - Discharge Medications Prescriptions: Cefdinir 300 mg PO Q12HR #8 capsule Diltiazem HCl [Cardizem CD] 240 mg PO DAILY #30 cap Apixaban [Eliquis] 5 mg PO BID #60 tab Pantoprazole [Protonix] 40 mg PO BID #60 tab Metoprolol Succinate [Toprol XL] 50 mg PO DAILY #30 tab Home Medications: Medication Instructions Recorded Confirmed Type Atorvastatin Calcium 40 mg PO HS 04/03/15 01/09/20 History Magnesium Hydroxide [Milk Of 30 ml PO DAILYPRN PRN udcup 06/22/17 01/09/20 Rx Magnesium] Magnesium Oxide [Magox 400] 400 mg PO DAILY 06/18/19 01/09/20 History Aspirin [Ecotrin Low Strength] 81 mg PO DAILY #30 tab 06/21/19 01/09/20 Rx Albuterol Sulfate [Proventil Hfa] 2 puff INH Q6HR PRN 01/09/20 01/09/20 History Lidocaine 2% Viscous Solution 15 ml SSW Q6HR PRN 01/09/20 01/09/20 History [Xylocaine 2% Viscous] Sennosides [Senna] 8.6 mg PO HS 01/09/20 01/09/20 History Torsemide 40 mg PO DAILY 01/09/20 01/09/20 History traZODone HCl [Trazodone HCl] 50 mg PO HS 01/09/20 01/09/20 History Apixaban [Eliquis] 5 mg PO BID #60 tab 01/17/20 Rx Cefdinir 300 mg PO Q12HR #8 capsule 01/17/20 Rx Diltiazem HCl [Cardizem CD] 240 mg PO DAILY #30 cap 01/17/20 Rx Metoprolol Succinate [Toprol XL] 50 mg PO DAILY #30 tab 01/17/20 Rx Pantoprazole [Protonix] 40 mg PO BID #60 tab 01/17/20 Rx Allergies: amiodarone Allergy (Severe, Verified 01/09/20 04:12) pt states amiodorone caused a lung infection - Discharge Instructions Activity:: Activity as Tolerated Nourishment:: Heart Healthy Diet - Follow up Plan Referrals: Cardiac Rehab - [place] [Outside] - 7 Days (Your doctor has ordered outpatient cardiac rehab for you to begin within 1-2 weeks after you go home from the hospital. The location nearest to you is the [facility]. The front office in [place] will call you in 3-5 days to get you scheduled for your evaluation. If you do not receive a call, please reach out to them at [phone] and request an appointment. Should you have any trouble or need assistance, please call the cardiac rehab main line in [place] at [phone]) [facility] [Outside] ([facility] with medical management.) [facility] [Primary Care Provider[facility] - 3 Days Annamaria Franco MD [Active] - 14 Days Steph Gleason APRN [Allied Health Professional] - 3-4 Weeks Shahbaz Ambrocio MD [Active] - [address] MD [Tank Processor] - (4-6 weeks [phone]) Alyssa Coles FNP [ Not on Staff] - 3 Days Disposition: HOME Quality - Care Measures CORE MEASURES:: HF - Stroke/TIA Did you prescribe antithrombotic therapy?: Yes Did you prescribe anticoagulant for A Fib/Flutter?: Yes Did you prescribe a statin medication?: Yes
[2020-01-17 15:19] VITALS: BP 101/60; TEMP 98
--- NOTE | 2020-01-17 15:27 | PDOC.EP ---
- Subjective Date: 01/17/20 Time: 08:00 Interval History: no clinical change or new events overnight. He continues to endorse shortness of breath that does not appear to be provoked or relieved by position changes. it is episodic, not always present. - Review of Systems Respiratory: reports: shortness of breath. denies: cough, wheezing Cardiology: denies: chest pain, edema, heart racing, light headedness, passing out Gastrointestinal: denies: abdominal pain, constipation, nausea, vomitting - Objective Allergies/Adverse Reactions: Allergies Allergy/AdvReac Type Severity Reaction Status Date / Time amiodarone Allergy Severe Verified 01/09/20 04:12 Current Medications Acetaminophen (Acetaminophen 325 Mg Tab) 650 mg PO Q4H PRN PRN Reason: Headache/Fever/Mild Pain (1-3) Last Admin: 01/17/20 15:16 Dose: 650 mg Documented by: Al Hydroxide/Mg Hydroxide (Mag-Al 1200 Mg/1200 Mg/30 Ml Udcup) 30 ml PO Q4H PRN PRN Reason: Heartburn or Indigestion Last Admin: 01/10/20 10:29 Dose: 30 ml Documented by: Alprazolam (Alprazolam 0.25 Mg Tab) 0.25 mg PO BIDPRN PRN PRN Reason: Anxiety Last Admin: 01/16/20 20:18 Dose: 0.25 mg Documented by: Apixaban (Apixaban 5 Mg Tab) 5 mg PO BID [facility] Last Admin: 01/17/20 08:26 Dose: 5 mg Documented by: Aspirin (Aspirin 81 Mg Enteric Coated Tablet) 81 mg PO DAILY [facility] Last Admin: 01/17/20 08:26 Dose: 81 mg Documented by: Atorvastatin Calcium (Atorvastatin Calcium 40 Mg Tab) 40 mg PO HS [facility] Last Admin: 01/16/20 20:17 Dose: 40 mg Documented by: Diltiazem HCl (Diltiazem Hcl Cd 240 Mg Capsule) 240 mg PO DAILY [facility] Last Admin: 01/17/20 08:26 Dose: 240 mg Documented by: Diphenhydramine HCl (Diphenhydramine 25 Mg Cap) 25 mg PO HSPRN PRN PRN Reason: Insomnia Last Admin: 01/11/20 22:12 Dose: 25 mg Documented by: Famotidine (Famotidine 20 Mg Tab) 20 mg PO BID [facility] Last Admin: 01/17/20 08:26 Dose: 20 mg Documented by: Levofloxacin 750 mg/ Device 150 mls @ 100 mls/hr IVPB Q24HR [facility] Last Admin: 01/16/20 20:17 Dose: 150 mls Documented by: Diltiazem HCl 125 mg/ Sodium (Chloride) 125 mls @ 2.5 mls/hr IVPB INF [facility]; Protocol Lidocaine HCl (Lidocaine Viscous [place] 2% 15 Ml Ud Cup) 15 ml SSW Q4H PRN PRN Reason: MOUTH PAIN Last Admin: 01/10/20 23:06 Dose: 15 ml Documented by: Magnesium Hydroxide (Milk Of Magnesia 30 Ml Udcup) 30 ml PO Q8H PRN PRN Reason: Constipation Last Admin: 01/17/20 05:28 Dose: 30 ml Documented by: Melatonin (Melatonin 3 Mg Tab) 3 mg PO HS PRN PRN Reason: Insomnia Metoprolol Succinate (Metoprolol Succinate Xl 50 Mg Tab) 50 mg PO DAILY [facility] Last Admin: 01/17/20 08:27 Dose: 50 mg Documented by: Nitroglycerin (Nitroglycerin 2% Ointment 1 Inch/1 Gm Packet) 0.5 inch TOP 0700,1500,2300 [facility] Last Admin: 01/17/20 14:25 Dose: Not Given Documented by: Sodium Chloride (Flush - Normal Saline 10 Ml Syringe) 10 ml IVF Q12HR [facility] Last Admin: 01/17/20 08:27 Dose: 10 ml Documented by: Sodium Chloride (Flush - Normal Saline 10 Ml Syringe) 10 ml IVF PRN PRN PRN Reason: Saline Flush Torsemide (Torsemide 20 Mg Tab) 40 mg PO DAILY [facility] Last Admin: 01/17/20 08:27 Dose: 40 mg Documented by: Trazodone HCl (Trazodone Hcl 50 Mg Tab) 50 mg PO HS [facility] Last Admin: 01/16/20 20:17 Dose: 50 mg Documented by: Vital Signs & Weight: Vital Signs Temp Pulse Resp BP BP Pulse Ox 01/17/20 15:17 98.0 F 60 16 101/60 100 01/17/20 11:45 98.4 F 70 18 135/70 98 01/17/20 08:43 100 01/17/20 07:38 97.8 F 79 24 H 135/58 L 100 11/19/20 04:00 97.6 F 80 20 113/59 L 98 Weight 175 lb 14.4 oz I/O: I/O 01/16/20 01/17/20 01/18/20 06:59 06:59 06:59 Intake Total 800 860 Output Total 1050 750 Balance -250 110 - Quality Measures Condition: Atrial Fibrillation/Flutter (hx or current) CV meds: Eliquis: Yes - Physical Exam General: no apparent distress, speech clear, affect appropriate. negative: appears well HEENT: mucus membranes moist, normocephaly Neck: supple neck, midline trachea, no JVD/HJR Cardiology: regular rate, irregularly irregular Lungs: clear to auscultation, normal breath sounds, no wheeze, rales, rhonchi Neurology: cranial nerve 2-12 intact, grossly intact, no lateralizing findings Abdomen: unremarkable, active bowel sounds, no pulsations/bruits - Chadsvasc Risk factors Age >75: 2 Vascular disease: 1 Risk Score: 3 - Labs Result Diagrams: 01/15/20 04:19 01/15/20 04:19 - EKG Interpretation EKG Method: Telemetry EKG shows: Atrial fibrillation - Assessment/Plan Assessment/Plan: 1. Acute on chronic diastolic heart failure. a. A 2D echo from 06/18/2019 reveals LVEF of 60% to 65%, mildly enlarged left atrium, mild aortic valve stenosis, mild mitral regurgitation, [id number] aortic valve insufficiency. b. 12/2019 echo LVEF 50-55% 2. Persisting atrial fibrillation. a. Prior history of an amiodarone therapy with pulmonary fibrosis. b. Currently on rate controlling strategy. c. hx QT prolongation 03/2019 3. History of paroxysmal AV block prompting a dual-chamber pacemaker implantation on 06/19/2019 with a Medtronic Advisa dual-chamber device. 4. CHADS-VASc score with coronary vascular disease, prior stents and age, diastolic heart failure, hypertension. a. Eliquis 5 mg b.i.d. 5. nonsustained ventricular tachycardia - preserved LVEF. Asymptomatic. Single 4 beat run noted on telemetry. Left heart catheterization with PCI to the LAD 9 months ago 6. coronary artery disease - 03/2019: BARBY x2 to the LAD on Plavix has tolerated full strength anticoagulation on Lovenox throughout his stay and was recently switched to oral anticoagulation Eliquis 5 mg b.i.d. with no evident bleeding dyscrasias. Improved heart rate control without bradycardia on increased diltiazem dose. No hypotension following the recent dose increase. Will see back as an outpatient in 4 weeks to discuss future treatment options. he continues to have intermittent shortness of breath. okay for discharge by EP. will need to continue Plavix given recent drug-eluting stent placement. Hopefully aspirin can be stopped to avoid triple therapy and the minimize risk for bleeding complications on multiple blood thinners. long-term he may require a watchman for left atrial appendage closure EP discharge meds: diltiazem 240 mg daily metoprolol succinate 50 mg daily Eliquis 5 mg b.i.d.
== END 2020-01-17 17:05 | disposition home health service (06) | DRG 280 ==
LOC: ERS 13:25 → ERHOLD 16:23 → 2NO 21:51
PROVIDERS: ADMIT Internal Medicine; ATTEND Internal Medicine
DX: I48.19 Other persistent atrial fibrillation (principal); I21.A1 Myocardial infarction type 2; I50.33 Acute on chronic diastolic (congestive) heart failure; J18.9 Pneumonia, unspecified organism; Z20.828 Contact with and (suspected) exposure to other viral communicable diseases; E78.5 Hyperlipidemia, unspecified; I08.2 Rheumatic disorders of both aortic and tricuspid valves; I25.10 Atherosclerotic heart disease of native coronary artery without angina pectoris; I11.0 Hypertensive heart disease with heart failure; I48.92 Unspecified atrial flutter; E78.00 Pure hypercholesterolemia, unspecified; I49.5 Sick sinus syndrome; D72.829 Elevated white blood cell count, unspecified; E87.6 Hypokalemia; D72.821 Monocytosis (symptomatic); I47.2 Ventricular tachycardia; Z90.49 Acquired absence of other specified parts of digestive tract; Z79.01 Long term (current) use of anticoagulants; Z79.899 Other long term (current) drug therapy; Z87.891 Personal history of nicotine dependence; Z86.79 Personal history of other diseases of the circulatory system; Z95.0 Presence of cardiac pacemaker
CPT/HCPCS: 36415; 71045; 80048; 80053; 80162; 81001; 82553; 83880; 84484; 85025; 85379; 87635; 93005; 93010; 93306; 94640; 96374; 96375; J1160; J1650; J1940; J1956; J3490; J7614; Q0163; U0003